=== PATIENT | male | born 1945 | race Caucasian/White ===

== ENCOUNTER 2018-03-25 10:53 | Inpatient (IN) | payer MEDICARE ==
[2018-03-25] MEDS ORDERED: SODIUM CHLORIDE 0.9% 500 ML IV STA (11:09)
[2018-03-25] MEDS ORDERED: ONDANSETRON 4 MG/2 ML VIAL IVP STA (11:09)
[2018-03-25] MEDS ORDERED: MORPHINE SULFATE 4 MG/ML SYRINGE IVP PRN (11:15)
--- NOTE | 2018-03-25 11:19 | ED ---
General Adult HPI - General Chief complaint: Nausea/Vomiting/Diarrhea Stated complaint: Dehydration Source: patient Mode of arrival: wheelchair Limitations: no limitations - History of Present Illness Initial comments: Dictation was produced using [employer] dictation software. please excuse any grammatical, word or spelling errors. Chief Complaint: 72-year-old male past medical history of esophageal cancer, abdominal lymphadenopathy, status post esophageal surgery presents with by mouth intolerance and dehydration. History of Present Illness: Patient reports that he's been getting his usual care at [facility]. Patient has history of esophageal disease. Patient recently had CT performed demonstrating lymphadenopathy. According to family who presents with patient reports that his symptoms are secondary to lymphadenopathy. Patient is unsure with by mouth intake for the last several months. Patient is unable to keep solids and liquids down. He is scheduled to have an EGD performed X week for biopsy of lymphadenopathy. Denies any constitutional symptoms. Patient has had this pain in the past however it has been getting progressively worse. The ROS documented in this emergency department record has been reviewed and confirmed by me. Those systems with pertinent positive or negative responses have been documented in the HPI. All other systems are other negative and/or noncontributory. - Related Data Home Medications Medication Instructions Recorded Confirmed Aspirin EC [Ecotrin] 81 mg PO DAILY 01/10/15 03/25/18 ALPRAZolam [Xanax] 0.25 mg PO HS 03/25/18 03/25/18 Cholecalciferol [Vitamin D3] 1,000 unit PO DAILY 03/25/18 03/25/18 Allergies Allergy/AdvReac Type Severity Reaction Status Date / Time No Known Allergies Allergy Verified 03/25/18 11:48 Review of Systems ROS Statement: Those systems with pertinent positive or pertinent negative responses have been documented in the HPI. ROS Other: All systems not noted in ROS Statement are negative. Past Medical History Past Medical History: Hyperlipidemia, Hypertension Additional Past Medical History / Comment(s): HX OF FX RT HIP-NO SURGERY; RINGING IN EARS. DIFF SWALLOWING FOOD, espoghus cancer History of Any Multi-Drug Resistant Organisms: None Reported Past Surgical History: Heart Catheterization With Stent Additional Past Surgical History / Comment(s): COLONOSCOPY, LAST 01/13/15. Past Anesthesia/Blood Transfusion Reactions: No Reported Reaction Date of Last Stent Placement:: 2000 Past Psychological History: No Psychological Hx Reported Smoking Status: Former smoker Past Alcohol Use History: Occasional Past Drug Use History: None Reported - Past Family History Mother Family Medical History: Cancer Additional Family Medical History / Comment(s): COLON General Exam - General Exam Comments Initial Comments: PHYSICAL EXAM: General Impression: Alert and oriented x3, acute distress secondary to pain HEENT: Normocephalic atraumatic, extra-ocular movements intact, pupils equal and reactive to light bilaterally, mucous membranes moist. Cardiovascular: Heart regular rate and rhythm, S1&S2 audible, no murmurs, rubs or gallops Chest: Lungs clear to auscultation bilaterally, no rhonchi, no wheeze, no rales Abdomen: Bowel sounds present, abdomen soft, non-tender, non-distended, no organomegaly, midline abdominal scar Musculoskeletal: Pulses present and equal in all extremities, no peripheral edema Motor: Moves all extremity is grossly Neurological: CN II-XII grossly intact, no focal motor or sensory deficits noted Skin: Intact with no visualized rashes Psych: Normal affect and mood Limitations: no limitations Course Vital Signs 03/25/18 03/25/18 03/25/18 11:04 12:15 12:19 Temperature 97.6 F Pulse Rate 86 61 78 Respiratory 18 24 18 Rate Blood Pressure 136/66 117/61 121/74 O2 Sat by Pulse 100 100 100 Oximetry Medical Decision Making - Medical Decision Making ED course: 72-year-old male with past medical history of esophageal cancer, status post esophageal surgery presents with poor by mouth intake. Signs upon arrival are within acceptable limits. Patient has complex history of esophageal disease. He had recent computed tomography scan performed at [facility] demonstrating lymphadenopathy of the abdomen. Patient receives his care normally at [facility]. Presents today accompanied by family requesting pain control and IV fluids. Physical examination shows male in acute distress. Patient clinically dehydrated. Patient given IV analgesics and intravenous fluids. EKG was obtained showing anteroseptal ST segment elevation myocardial infarction. CODE STATUS per HPI. Patient is given heparin, aspirin. Patient disposition to cardiac Manpower Development Specialist Manager. Patient be admitted to hospitalist EKG interpretation: Ventricular rate 79. Senna's rhythm rhythm. KS interval 146, QRS 88, QTc 435. Elevated ST segments in anterior precordial leads with his typical depressions in inferior leads. EKG consistent with ST [facility] - Lab Data Result diagrams: 03/25/18 11:20 03/25/18 11:20 Lab Results 03/25/18 03/25/18 Range/Units 11:20 11:20 WBC 5.4 (3.8-10.6) k/uL RBC 4.60 (4.30-5.90) m/uL Hgb 14.7 (13.0-17.5) gm/dL Hct 43.6 (39.0-53.0) % MCV 94.7 (80.0-100.0) fL MCH 31.9 (25.0-35.0) pg MCHC 33.7 (31.0-37.0) g/dL RDW 13.1 (11.5-15.5) % Plt Count 108 L (150-450) k/uL Neutrophils % 78 % Lymphocytes % 13 % Monocytes % 5 % Eosinophils % 2 % Basophils % 1 % Neutrophils # 4.2 (1.3-7.7) k/uL Lymphocytes # 0.7 L (1.0-4.8) k/uL Monocytes # 0.3 (0-1.0) k/uL Eosinophils # 0.1 (0-0.7) k/uL Basophils # 0.0 (0-0.2) k/uL Sodium 145 (137-145) mmol/L Potassium 4.0 (3.5-5.1) mmol/L Chloride 110 H (98-107) mmol/L Carbon Dioxide 22 (22-30) mmol/L Anion Gap 13 mmol/L BUN 27 H (9-20) mg/dL Creatinine 0.92 (0.66-1.25) mg/dL Est GFR (CKD-EPI)AfAm >90 (>60 ml/min/1.73 sqM) Est GFR (CKD-EPI)NonAf 84 (>60 ml/min/1.73 sqM) Glucose 106 H (74-99) mg/dL Calcium 9.6 (8.4-10.2) mg/dL Total Bilirubin 1.1 (0.2-1.3) mg/dL AST 32 (17-59) U/L ALT 35 (21-72) U/L Alkaline Phosphatase 146 H (38-126) U/L Total Protein 6.7 (6.3-8.2) g/dL Albumin 4.4 (3.5-5.0) g/dL Lipase 17 L (23-300) U/L Disposition Clinical Impression: STEMI (ST elevation myocardial infarction) Disposition: ADMITTED IP TO THIS HOSP Condition: Serious Referrals: Winston Hoffman MD [Primary Care Provider] - 1-2 days Time of Disposition: 12:33
[2018-03-25 11:34] LABS: Basophils % (A) 1 %; Eosinophils # (A) 0.1 k/uL (0-0.7); Eosinophils % (A) 2 %; HCT 43.6 % (39.0-53.0); HGB 14.7 gm/dL (13.0-17.5); Lymphocytes # (A) 0.7 k/uL (1.0-4.8); Lymphocytes % (A) 13 %; MCH 31.9 pg (25.0-35.0); MCHC 33.7 g/dL (31.0-37.0); MCV 94.7 fL (80.0-100.0); Mean Platelet Volume 7.3; Monocytes # (A) 0.3 k/uL (0-1.0); Monocytes % (A) 5 %; Neutrophils # (A) 4.2 k/uL (1.3-7.7); Neutrophils % (A) 78 %; Platelet Count 108 k/uL (150-450); RDW 13.1 % (11.5-15.5); WBC 5.4 k/uL (3.8-10.6)
[2018-03-25 11:44] LABS: ALT 35 U/L (21-72); AST 32 U/L (17-59); Albumin 4.4 g/dL (3.5-5.0); Alkaline Phosphatase 146 U/L (38-126); Anion Gap 13 mmol/L; Blood Urea Nitrogen 27 mg/dL (9-20); Calcium 9.6 mg/dL (8.4-10.2); Carbon Dioxide 22 mmol/L (22-30); Chloride 110 mmol/L (98-107); Glucose 106 mg/dL (74-99); Lipase 17 U/L (23-300); Sodium 145 mmol/L (137-145); Total Bilirubin 1.1 mg/dL (0.2-1.3); Total Protein 6.7 g/dL (6.3-8.2)
[2018-03-25] MEDS ORDERED: HEPARIN SODIUM,PORCINE 5,000 UNIT/ML 1 ML VIAL IV STA (12:00)
[2018-03-25] MEDS ORDERED: ASPIRIN 81 MG PO STA (12:01)
[2018-03-25] MEDS ORDERED: ATORVASTATIN 80 MG TAB PO STA (12:11)
--- NOTE | 2018-03-25 12:32 | P.CRDCN ---
History of Present Illness Consult date: 03/25/18 Reason for Consult (text): Anterior STEMI Chief complaint: Chest pain History of present illness: This is a pleasant 72-year-old gentleman with history of hypertension , hyperlipidemia, prior nicotine dependence for which she states he quit smoking approximately 30 years ago, patient also states that he has had prior cardiac stenting over 20 years ago. Patient has esophageal cancer for which he underwent chemo and radiation and subsequent removal of his esophagus. According to the patient, in this regard he's been doing fairly well until recently he was noted to have an abdominal mass for which she is going to [facility] and undergoing a biopsy this Tuesday. Patient has been losing a significant amount of weight recently as well. He presents to the hospital on this occasion with symptoms of mid epigastric and midsternal chest pressure and heaviness which she initially thought were symptoms from this new mass they found. Patient states that he's been having discomfort for the past couple of days. This morning the pain was quite severe, patient was quite short of breath and diaphoretic and for this reason came to the emergency room for further evaluation. EKG on arrival here showed a normal sinus rhythm with anterior ST elevation in leads V1 to V4, reciprocal changes of ST depression noted in the inferior leads. Blood pressure 130/60 with a heart rate in the 80s , 100% on room air, temperature 97.6. At the time of my examination patient continued to have discomfort which he rated at a 5 or 6 on a scale of 1-10. He has been given an aspirin as well as Lipitor. Chest x-ray was performed results of which are yet pending. White blood cell count 5.4, hemoglobin 14.7, platelet count 108. Sodium 145, potassium 4.0, BUN 27, creatinine 0.9. No troponins have been yet performed. Patient was seen by Dr. Casper in the emergency room and advised to go emergently to the cardiac catheterization lab, the risks and the benefits were explained to both him and his and daughters who are at bedside. Further recommendations will be based on the findings and the patient's clinical course. Past Medical History Past Medical History: Hyperlipidemia, Hypertension Additional Past Medical History / Comment(s): HX OF FX RT HIP-NO SURGERY; RINGING IN EARS. DIFF SWALLOWING FOOD, espoghus cancer History of Any Multi-Drug Resistant Organisms: None Reported Past Surgical History: Heart Catheterization With Stent Additional Past Surgical History / Comment(s): COLONOSCOPY, LAST 01/13/15. Past Anesthesia/Blood Transfusion Reactions: No Reported Reaction Date of Last Stent Placement:: 2000 Past Psychological History: No Psychological Hx Reported Smoking Status: Former smoker Past Alcohol Use History: Occasional Past Drug Use History: None Reported - Past Family History Mother Family Medical History: Cancer Additional Family Medical History / Comment(s): COLON Medications and Allergies Home Medications Medication Instructions Recorded Confirmed Type Aspirin EC [Ecotrin] 81 mg PO DAILY 01/10/15 03/25/18 History ALPRAZolam [Xanax] 0.25 mg PO HS 03/25/18 03/25/18 History Cholecalciferol [Vitamin D3] 1,000 unit PO DAILY 03/25/18 03/25/18 History Allergies Allergy/AdvReac Type Severity Reaction Status Date / Time No Known Allergies Allergy Verified 03/25/18 11:48 Physical Exam Vitals: Vital Signs Temp Pulse Resp BP Pulse Ox 03/25/18 12:19 78 18 121/74 100 03/25/18 12:15 61 24 117/61 100 03/25/18 11:04 97.6 F 86 18 136/66 100 Intake and Output 03/24/18 03/25/18 03/25/18 22:59 06:59 14:59 Other: Weight 67.585 kg PHYSICAL EXAMINATION: GENERAL: Thin, somewhat emaciated 72-year-old gentleman HEENT: Head is atraumatic, normocephalic. Pupils equal, round. Sclera anicteric. Conjunctiva are clear. Mucous membranes of the mouth are moist. Neck is supple. There is no elevated jugular venous pressure.] bruit is heard. HEART EXAMINATION: Heart S1, S2 normal. No murmur or gallop heard. CHEST EXAMINATION: Lungs are clear to auscultation and precussion. No chest wall tenderness is noted on palpation or with deep breathing. ABDOMEN: Soft, nontender. Bowel sounds are heard. No organomegaly noted. EXTREMITIES: 2+ peripheral pulses with no evidence of peripheral edema and no calf tenderness noted. NEUROLOGIC patient is awake, alert and oriented ?-3. . Results 03/25/18 11:20 03/25/18 11:20 Cardiac Enzymes 03/25/18 Range/Units 11:20 AST 32 (17-59) U/L CBC 03/25/18 Range/Units 11:20 WBC 5.4 (3.8-10.6) k/uL RBC 4.60 (4.30-5.90) m/uL Hgb 14.7 (13.0-17.5) gm/dL Hct 43.6 (39.0-53.0) % Plt Count 108 L (150-450) k/uL Comprehensive Metabolic Panel 03/25/18 Range/Units 11:20 Sodium 145 (137-145) mmol/L Potassium 4.0 (3.5-5.1) mmol/L Chloride 110 H (98-107) mmol/L Carbon Dioxide 22 (22-30) mmol/L BUN 27 H (9-20) mg/dL Creatinine 0.92 (0.66-1.25) mg/dL Glucose 106 H (74-99) mg/dL Calcium 9.6 (8.4-10.2) mg/dL AST 32 (17-59) U/L ALT 35 (21-72) U/L Alkaline Phosphatase 146 H (38-126) U/L Total Protein 6.7 (6.3-8.2) g/dL Albumin 4.4 (3.5-5.0) g/dL Current Medications Generic Name Dose Route Start Last Admin Trade Name Freq PRN Reason Stop Dose Admin Morphine Sulfate 4 mg 03/25/18 11:15 03/25/18 11:26 Morphine Sulfate (Inj) IVP 4 mg ONCE PRN Administration Pain Intake and Output 03/24/18 03/25/18 03/25/18 22:59 06:59 14:59 Other: Weight 67.585 kg Patient Weight 03/26/18 06:59 Weight 67.585 kg 03/25/18 11:20 03/25/18 11:20 EKG Interpretations (text) EKG shows normal sinus rhythm with ST elevation noted in the anterior leads and reciprocal changes of ST depression in the inferior leads. Assessment and Plan Plan: Assessment and plan #[address] elevation myocardial infarction #2 history of coronary artery disease with prior stent placement over 20 years ago #3 hypertension #4 hyperlipidemia #5 prior history of smoking, patient quit smoking approximately 30 years ago #6 history of esophageal cancer for which patient underwent chemo and radiation and subsequent surgery for removal of his esophagus #7 recent lymphadenopathy for which patient scheduled to undergo outpatient biopsy at [facility] on Tuesday Plan Patient was given aspirin and Lipitor, IV heparin bolus, advised to undergo emergently to the cardiac catheterization lab. The risks and the benefits explained to both him and his family in detail, this will be performed by Dr. Casper. Further recommendations will be based on these findings and the patient 's clinical course. DNP note has been reviewed, I agree with a documented findings and plan of care. Patient was seen and examined.
--- NOTE | 2018-03-25 12:41 | XR ---
EXAMINATION TYPE: XR chest 1V portable DATE OF EXAM: 03/25/2018 HISTORY: stemi. REFERENCE: Previous study dated 04/08/2013. FINDINGS: Lung volumes are prominent. The lungs are clear. Pleural spaces are clear. The heart is not enlarged. IMPRESSION: PLEASE CORRELATE FOR COPD.
[2018-03-25] MEDS ORDERED: fentaNYL (PF) 50 MCG/ML 2 ML AMP ONE (12:46)
[2018-03-25] MEDS ORDERED: LIDOCAINE 2% INJ 20 MG/ML SQ ONE ×2 (12:51)
[2018-03-25] MEDS ORDERED: fentaNYL (PF) 50 MCG/ML 2 ML AMP IVP ONE ×2 (12:51)
[2018-03-25] MEDS ORDERED: SODIUM CHLORIDE 0.9% 1,000 ML IV ONE ×2 (12:53)
[2018-03-25] MEDS ORDERED: BIVALIRUDIN BOLUS 250 MG/50 ML IV ONE ×2 (12:58)
[2018-03-25] MEDS ORDERED: BIVALIRUDIN 250 MG in SODIUM CHLORIDE 0.9% 50 ML IV ONE ×4 (12:59)
[2018-03-25] MEDS ORDERED: PRASUGREL 10 MG TAB ONE (13:00)
[2018-03-25] MEDS ORDERED: PRASUGREL 10 MG TAB PO ONE ×2 (13:03)
[2018-03-25] MEDS ORDERED: IOPAMIDOL-370 125ML BTL INJ ONE (13:09)
[2018-03-25 13:15] LABS: Creatine Kinase MB 4.3 ng/mL (0.0-2.4); Troponin I 0.445 ng/mL (0.000-0.034)
[2018-03-25] MEDS ORDERED: IOPAMIDOL-370 100ML BTL INJ ONE (13:17)
[2018-03-25] MEDS ORDERED: ATROPINE SULFATE 0.1 MG/ML 10ML SYRINGE IV PRN (13:34)
[2018-03-25] MEDS ORDERED: RX INFO: IV CONTRAST WAS GIVEN 1 EACH MISC MISCELLANE PRN (13:34)
[2018-03-25] MEDS ORDERED: MAG HYDROX/AL HYDROX/SIMETH 30 ML CUP PO PRN (13:34)
[2018-03-25] MEDS ORDERED: ZOLPIDEM 5 MG TAB PO PRN (13:34)
[2018-03-25] MEDS ORDERED: NITROGLYCERIN SL TABS 0.4 MG TAB SUBLINGUAL PRN (13:34)
[2018-03-25] MEDS ORDERED: SODIUM CHLORIDE 0.9% 1,000 ML IV SCH (13:45)
--- NOTE | 2018-03-25 13:51 | CC ---
CARDIAC CATHETERIZATION REPORT Mr. 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 He was being evaluated at [facility] who presented to the emergency room with nausea and vomiting and chest discomfort. His EKG was consistent with an acute ST-segment elevation myocardial infarction in the anterior leads. In view of that, recommendation made regarding cardiac catheterization. The procedures, risks and complications were discussed with the patient who is in full understanding and agreement. PROCEDURE: Patient was brought to labor relations specialist after receiving fentanyl and Benadryl and achieving moderate conscious sedated state. Using Xylocaine anesthesia in the Seldinger technique, a 6-Peruvian sheath was introduced in the right femoral artery. Selective right and left angiography were performed using 6-Peruvian FR4 guiding catheter and after performing angioplasty and stenting of the LAD images of the right coronary was performed using 6-Peruvian right Raj catheter. Following that, a 6-Peruvian tight pigtail catheter was left ventricle and a 30 degree REID view of the left ventricle was obtained. Following the catheter and sheaths were removed. Hemostasis was obtained with deployment of an Angio-Seal. There was no immediate complication. Patient is returned to his room in stable condition. FINDINGS: Left Main: This is a short size vessel bifurcating left circumflex, left anterior descending artery. Left main coronary artery has no evidence of high-grade stenosis. Left Anterior Descending Artery: This is a large-sized vessel reaching toward the apex with a wraparound apex segment giving rise to a diagonal branch in mid segment the left anterior descending artery at the takeoff has a 99% stenosis. The rest of the vessel has mild intimal disease of 10% to 20% without any evidence of high-grade stenosis. Left Circumflex: This is a dominant vessel large in caliber giving rise to 2 obtuse marginal branches. The first one is large in caliber distally bifurcating into PDA and posterolateral segment and branches. The left circumflex stented segment proximally is patent, has mild intimal disease of 20% to 30%. There is mild intimal disease throughout the course of the vessel without any evidence of high-grade stenosis. Right Coronary Artery: This is a small nondominant vessel that has no evidence of high- grade stenosis. LEFT VENTRICULOGRAM: Left ventriculogram is performed in 30-degree REID view and revealed anteroapical severe hypokinesis to akinesis. Estimated ejection fraction 35%. There was no significant. HEMODYNAMICS: There was no gradient across the aortic valve. The left ventricle end-diastolic pressure was 16-20 mmHg. CONCLUSION: 1. Critical stenosis involving the ostium of the left anterior descending artery. 2. Mild disease in the left circumflex artery and the right coronary artery. 3. Severely impaired left ventricular systolic function. RECOMMENDATION: In view of finding anatomy, I recommend proceeding with angioplasty and stenting of the LAD. The procedure, risks and complications were discussed with the patient who is in full understanding and agreement. MMCONORL / IJN: [id number] /
--- NOTE | 2018-03-25 13:54 | PTCA ---
PERCUTANEOUSTRANS CORORONARY ANGIOGRAPHY Mr. Malrow is a 72-year-old male who presented with an acute ST-segment elevation myocardial infarction, underwent coronary angiography and was found to have critical stenosis involving the ostial of the LAD. In view of that, recommendation was made regarding angioplasty and stenting. The procedures, risks and complications were discussed with the patient who is in full understanding and agreement. PROCEDURE: Using the 6-Hungarian FL4 guiding catheter a 0.014 balanced medium weight J-wire was advanced across and positioned distal left circumflex. Following that, another 0.014 advanced medium weight J-wire was advanced and positioned distal LAD. Following that, a 2.5 x 12 mm Trek balloon was advanced and one inflation at 8 atmospheres was done. Following that the balloon was removed and a 3.5 x 12 mm Xience Alpine stent was deployed and post dilated at 16 atmospheres. After the last inflation, after appropriate wait the balloon and the guidewire were withdrawn back in the guiding catheter. Images were obtained and repeated. Those images reveal stable successful stenting. At that point the angiography of the right coronary artery and left ventriculography was performed. Following that, the catheter and sheaths were removed. Hemostasis was obtained with deployment of an Angio-Seal. There was no immediate complication. The patient was returned to his room in stable condition. Of note, the patient had no chest discomfort at the end of the procedure and he had improvement in his ST-segment elevation. He received Angiomax per protocol as well as oral loading dose of Effient. RESULTS: Successful stenting of the ostium of the LAD with reduction of stenosis from 99% to 0%. RECOMMENDATION: The patient will be continued on aspirin, Effient, beta bryan, MELANIE and statin. The importance of dual antiplatelet treatment were discussed with the patient and his family and agreement. DURATION OF PROCEDURE: 30 minutes MMODL / IJN: [id number] /
--- NOTE | 2018-03-25 13:54 | LTR ---
March 25, [address] Winston Hoffman: I had the pleasure of performing coronary angiography and coronary angioplasty on Mr. Marlow at [facility] on March 25 and a full copy of the procedure note will be forwarded to you. In brief, he presented with an acute ST-segment elevation myocardial infarction involving the LAD territory and underwent successful stenting of that vessel. I am hopeful that this procedure will stabilize his status. Thank you again for allowing me to participate in his care. Please feel free to call for any questions. Sincerely, ISELA / CRISTINEN: [id number] /
[2018-03-25 14:32] LABS: Glucose,Whole Blood 89 mg/dL (75-99)
[2018-03-25 16:29] VITALS: BMI 21.4
--- NOTE | 2018-03-25 17:09 | P.HPIM ---
History of Present Illness Patient is a 72-year-old pleasant gentleman came with chest pain found to have ST elevation microinfarction underwent stenting of LAD patient does have history of esophageal cancer appears to have relapse has a mass in the lower esophageal area patient had a splenectomy in the past patient has not been able to tolerate any diet including liquid diet because of which a PEG tube was recommended, surgery will be consulted tomorrow. Patient received stent today patient was started on dual antiplatelet therapy, low-dose MELANIE inhibitor and statin. Patient presently is chest pain-free. Review of Systems REVIEW OF SYSTEMS: CONSTITUTIONAL: No fever, no malaise, no fatigue. HEENT: No recent visual problems or hearing problems. Denied any sore throat. CARDIOVASCULAR: No chest pain, orthopnea, PND, no palpitations, no syncope. PULMONARY: No shortness of breath, no cough, no hemoptysis. GASTROINTESTINAL: No diarrhea, no nausea, no vomiting, no abdominal pain. Normoactive bowel sounds. NEUROLOGICAL: No headaches, no weakness, no numbness. HEMATOLOGICAL: Denies any bleeding or petechiae. GENITOURINARY: Denies any burning micturition, frequency, or urgency. MUSCULOSKELETAL/RHEUMATOLOGICAL: Denies any joint pain, swelling, or any muscle pain. ENDOCRINE: Denies any polyuria or polydipsia. The rest of the 14-point review of systems is negative. Past Medical History Past Medical History: Cancer, Hyperlipidemia, Hypertension Additional Past Medical History / Comment(s): HX OF FX RT HIP-NO SURGERY; RINGING IN EARS. DIFF SWALLOWING FOOD, espoghus cancer History of Any Multi-Drug Resistant Organisms: None Reported Past Surgical History: Heart Catheterization With Stent Additional Past Surgical History / Comment(s): COLONOSCOPY, LAST 01/13/15. esophagectomy, radiation and chemotherapy 2 years ago. Past Anesthesia/Blood Transfusion Reactions: No Reported Reaction Date of Last Stent Placement:: 2000 Past Psychological History: No Psychological Hx Reported Smoking Status: Former smoker Past Alcohol Use History: Occasional Past Drug Use History: None Reported - Past Family History Mother Family Medical History: Cancer Additional Family Medical History / Comment(s): COLON Medications and Allergies Home Medications Medication Instructions Recorded Confirmed Type Aspirin EC [Ecotrin] 81 mg PO DAILY 01/10/15 03/25/18 History ALPRAZolam [Xanax] 0.25 mg PO HS 03/25/18 03/25/18 History Cholecalciferol [Vitamin D3] 1,000 unit PO DAILY 03/25/18 03/25/18 History Allergies Allergy/AdvReac Type Severity Reaction Status Date / Time No Known Allergies Allergy Verified 03/25/18 11:48 Physical Exam Vitals: Vital Signs Temp Pulse Resp BP Pulse Ox 03/25/18 17:00 64 22 116/81 99 03/25/18 16:45 64 27 H 138/81 99 03/25/18 16:30 82 24 119/84 97 03/25/18 16:15 78 17 135/84 98 03/25/18 16:00 77 16 128/78 96 03/25/18 15:45 79 17 133/83 95 03/25/18 15:30 81 19 134/77 97 03/25/18 15:15 83 12 124/83 97 03/25/18 15:00 87 20 139/88 97 03/25/18 14:45 85 25 H 128/86 96 03/25/18 14:38 97.6 F 78 18 121/74 100 03/25/18 14:30 83 16 114/82 97 03/25/18 14:15 80 14 132/74 97 03/25/18 12:19 78 18 121/74 100 03/25/18 12:15 61 24 117/61 100 03/25/18 11:04 97.6 F 86 18 136/66 100 Intake and Output 03/25/18 03/25/18 03/25/18 06:59 14:59 22:59 Intake Total 769 200 Balance 769 200 Intake: IV 269 200 Sodium Chloride 0.9% 1, 200 000 ml @ 100 mls/hr IV . Q10H [facility] Rx#:[id number] Amount of Fluid Infused ( 500 ml) Other: Weight 67.5 kg 67.585 kg PHYSICAL EXAMINATION: GENERAL: The patient is alert and oriented x3, not in any acute distress. Thin built cachectic HEENT: Pupils are round and equally reacting to light. EOMI. No scleral icterus. No conjunctival pallor. Normocephalic, atraumatic. No pharyngeal erythema. No thyromegaly. CARDIOVASCULAR: S1 and S2 present. No murmurs, rubs, or gallops. PULMONARY: Chest is clear to auscultation, no wheezing or crackles. ABDOMEN: Soft, nontender, nondistended, normoactive bowel sounds. No palpable organomegaly. MUSCULOSKELETAL: No joint swelling or deformity. EXTREMITIES: No cyanosis, clubbing, or pedal edema. NEUROLOGICAL: Gross neurological examination did not reveal any focal deficits. SKIN: No rashes. Results CBC & Chem 7: 03/25/18 11:20 03/25/18 11:20 Labs: Abnormal Lab Results - Last 24 Hours (Table) 03/25/18 03/25/18 03/25/18 Range/Units 11:20 11:20 11:20 Plt Count 108 L (150-450) k/uL Lymphocytes # 0.7 L (1.0-4.8) k/uL Chloride 110 H (98-107) mmol/L BUN 27 H (9-20) mg/dL Glucose 106 H (74-99) mg/dL Alkaline Phosphatase 146 H (38-126) U/L CK-MB (CK-2) 4.3 H* (0.0-2.4) ng/mL Troponin I 0.445 H* (0.000-0.034) ng/mL Lipase 17 L (23-300) U/L 03/25/18 Range/Units 14:33 Plt Count (150-450) k/uL Lymphocytes # (1.0-4.8) k/uL Chloride (98-107) mmol/L BUN (9-20) mg/dL Glucose (74-99) mg/dL Alkaline Phosphatase (38-126) U/L CK-MB (CK-2) (0.0-2.4) ng/mL Troponin I 4.280 H* (0.000-0.034) ng/mL Lipase (23-300) U/L Thrombosis Risk Factor Assmnt - Choose All That Apply Any of the Below Risk Factors Present?: Yes Each Factor Represents 1 point: Acute AL Each Risk Factor Represents 2 Points: Age 61-74 years Thrombosis Risk Factor Assessment Total Risk Factor Score: 3 Thrombosis Risk Factor Assessment Level: Moderate Risk Assessment and Plan Plan: ST elevation microinfarction: Patient is status post radical catheterization and stenting patient is an above-mentioned medications -Mild to moderate protein calorie malnutrition with severe cachexia and able to tolerate diet because of the esophageal mass patient may need a PEG tube surgery will be consulted tomorrow -Hyperlipidemia -Hypertension -History of esophageal cancer which appears to have relapsed biopsy as an outpatient in [facility].
[2018-03-25] MEDS: ACETAMINOPHEN TAB 325 MG TAB PO PRN (18:33)
[2018-03-25] MEDS: SPIRONOLACTONE 25 MG TAB PO SCH (18:34)
[2018-03-25] MEDS: METOPROLOL TARTRATE 25 MG TAB PO SCH (20:08)
[2018-03-25] MEDS: LISINOPRIL 2.5 MG TAB PO SCH (20:08)
[2018-03-25] MEDS ORDERED: ALPRAZolam 0.25 MG TAB PO SCH (21:00)
[2018-03-25] MEDS: ALPRAZolam 0.5 MG TAB PO SCH (21:37)
[2018-03-26 04:34] LABS: Anion Gap 4 mmol/L; Blood Urea Nitrogen 24 mg/dL (9-20); Calcium 9.1 mg/dL (8.4-10.2); Carbon Dioxide 24 mmol/L (22-30); Chloride 113 mmol/L (98-107); Cholesterol 129 mg/dL (<200); Glucose 97 mg/dL (74-99); HDL Cholesterol 49 mg/dL (40-60); LDL Cholesterol,Calculated 67 mg/dL (0-99); Magnesium 2.2 mg/dL (1.6-2.3); Phosphorus 3.7 mg/dL (2.5-4.5); Potassium 4.2 mmol/L (3.5-5.1); Sodium 141 mmol/L (137-145); Triglycerides 63 mg/dL (<150)
[2018-03-26 04:39] LABS: Basophils % (A) 0 %; Eosinophils % (A) 0 %; HCT 38.5 % (39.0-53.0); HGB 12.9 gm/dL (13.0-17.5); Lymphocytes # (A) 0.4 k/uL (1.0-4.8); Lymphocytes % (A) 7 %; MCH 31.7 pg (25.0-35.0); MCHC 33.5 g/dL (31.0-37.0); MCV 94.7 fL (80.0-100.0); Mean Platelet Volume 7.8; Monocytes # (A) 0.7 k/uL (0-1.0); Monocytes % (A) 11 %; Neutrophils # (A) 4.9 k/uL (1.3-7.7); Neutrophils % (A) 79 %; RBC 4.06 m/uL (4.30-5.90); RDW 13.3 % (11.5-15.5); WBC 6.1 k/uL (3.8-10.6)
[2018-03-26 05:03] LABS: Platelet Count 87 k/uL (150-450)
[2018-03-26] MEDS: METOPROLOL TARTRATE 25 MG TAB PO SCH ×2 (08:55→19:36)
[2018-03-26] MEDS: LISINOPRIL 2.5 MG TAB PO SCH (08:55)
[2018-03-26] MEDS: PRASUGREL 10 MG TAB PO SCH (08:55)
[2018-03-26] MEDS: ASPIRIN 81 MG PO SCH (08:55)
--- NOTE | 2018-03-26 09:37 | PN ---
PROGRESS NOTE Mr. Marlow is a 72-year-old male who presented with an acute anterior myocardial infarction, underwent cardiac catheterization, was found to have ostial LAD lesion and underwent stenting of that vessel. He is doing well this morning. He is denying any symptoms of chest pain. His breathing has been stable. He denies any dizziness. He is in sinus mechanism with episode of low blood pressure. He continues to be at this time on aspirin once a day, Effient 10 mg daily, Lipitor 80 mg daily, lisinopril 2.5 mg twice a day, metoprolol tartrate 25 mg twice a day and spironolactone 25 mg daily. PHYSICAL EXAMINATION: Blood pressure running in the 90s. Heart rate in the 60s. LUNGS: Clear heart rate rhythm S1, S2. No S3 with systolic murmur. ABDOMEN: Soft nontender. Right groin no hematoma. LAB DATA: With a peak troponin of 29.4, BUN and creatinine 24 and 0.7, hemoglobin of 12.9. EKG revealed sinus mechanism with QRS in V1 to V2 and T-wave inversion of the lateral precordial leads with preserved R-wave in lead V3. IMPRESSION: 1. Status post acute anterior myocardial infarction with stenting of the ostial LAD. 2. Prior stenting of the left circumflex patent. 3. History of esophageal cancer with possible recurrence. 4. Weight loss. RECOMMENDATIONS: At this time, I will cut down the dose of his MELANIE inhibitor. Increase his level of activity. He should be able to transfer to telemetry floor. We will obtain echocardiogram with Doppler tomorrow and depending on results of testing, further recommendations will be made. MMODL / IJN: [id number] /
[2018-03-26] MEDS ORDERED: SODIUM CHLORIDE 0.9% 500 ML IV ONE (13:03)
--- NOTE | 2018-03-26 15:10 | P.PN ---
Subjective Patient had ST elevation myocardial infarction underwent stenting of LAD patient blood pressure is low because of which he didn't receive his metoprolol as lisinopril today. Patient is able to eat regular diet may not require a PEG tube. But anyways as per the patient and family's request I'll consult surgery for further evaluation for PEG tube placement. Constitutional: Denied any fatigue denied any fever. Cardio vascular: denied any chest pain, palpitations Gastrointestinal denied any nausea vomiting Pulmonary: Denied any shortness of breath cough Neurologic denied any new focal deficits Objective - Vital Signs Vital signs: Vital Signs Temp 98.6 F 03/26/18 12:00 Pulse 65 03/26/18 12:00 Resp 17 03/26/18 12:00 BP 104/63 03/26/18 12:00 Pulse Ox 98 03/26/18 12:00 Intake & Output 03/25/18 03/26/18 03/26/18 18:59 06:59 18:59 Intake Total 1269 800 800 Output Total 100 675 300 Balance 1169 125 500 Weight 67.585 kg 60.7 kg Intake: IV 769 800 500 Sodium Chloride 0.9% 1, 500 800 0 000 ml @ 100 mls/hr IV . Q10H [facility] Rx#:[id number] Sodium Chloride 0.9% 500 500 ml @ 999 mls/hr IV .Q31M [facility] Rx#:[id number] Amount of Fluid Infused ( 500 ml) Oral 300 Output: Urine 100 675 300 Other: Voiding Method Urinal Urinal Urinal # Voids 0 0 - Exam PHYSICAL EXAMINATION: GENERAL: The patient is alert and oriented x3, not in any acute distress. Thin built cachectic HEENT: Pupils are round and equally reacting to light. EOMI. No scleral icterus. No conjunctival pallor. Normocephalic, atraumatic. No pharyngeal erythema. No thyromegaly. CARDIOVASCULAR: S1 and S2 present. No murmurs, rubs, or gallops. PULMONARY: Chest is clear to auscultation, no wheezing or crackles. ABDOMEN: Soft, nontender, nondistended, normoactive bowel sounds. No palpable organomegaly. MUSCULOSKELETAL: No joint swelling or deformity. EXTREMITIES: No cyanosis, clubbing, or pedal edema. NEUROLOGICAL: Gross neurological examination did not reveal any focal deficits. SKIN: No rashes. - Labs CBC & Chem 7: 07/22/18 04:00 03/26/18 04:00 Labs: Abnormal Lab Results - Last 24 Hours (Table) 03/25/18 03/25/18 03/26/18 Range/Units 14:33 20:29 04:00 RBC (4.30-5.90) m/uL Hgb (13.0-17.5) gm/dL Hct (39.0-53.0) % Plt Count (150-450) k/uL Lymphocytes # (1.0-4.8) k/uL Chloride (98-107) mmol/L BUN (9-20) mg/dL Troponin I 4.280 H* 23.700 H* 29.400 H* (0.000-0.034) ng/mL 03/26/18 03/26/18 Range/Units 04:00 04:00 RBC 4.06 L (4.30-5.90) m/uL Hgb 12.9 L (13.0-17.5) gm/dL Hct 38.5 L (39.0-53.0) % Plt Count 87 L (150-450) k/uL Lymphocytes # 0.4 L (1.0-4.8) k/uL Chloride 113 H (98-107) mmol/L BUN 24 H (9-20) mg/dL Troponin I (0.000-0.034) ng/mL Assessment and Plan Plan: ST elevation myocardial: Patient is status post cardiac catheterization and stenting of left anterior descending patient is an above-mentioned medications -Mild to moderate protein calorie malnutrition with severe cachexia and able to tolerate diet because of the esophageal mass , surgical consultation although patient is able to tolerate regular diet well at this time. -Hyperlipidemia -Hypertension -History of esophageal cancer which appears to have relapsed biopsy as an outpatient in [facility].
[2018-03-26] MEDS: SPIRONOLACTONE 25 MG TAB PO SCH (16:41)
[2018-03-26] MEDS: ATORVASTATIN 80 MG TAB PO SCH (20:00)
[2018-03-26] MEDS: ALPRAZolam 0.5 MG TAB PO SCH (20:01)
[2018-03-27 04:55] LABS: Basophils % (A) 0 %; Eosinophils # (A) 0.1 k/uL (0-0.7); Eosinophils % (A) 2 %; HCT 38.8 % (39.0-53.0); Lymphocytes # (A) 0.6 k/uL (1.0-4.8); Lymphocytes % (A) 12 %; MCH 31.6 pg (25.0-35.0); MCHC 33.5 g/dL (31.0-37.0); MCV 94.3 fL (80.0-100.0); Mean Platelet Volume 7.9; Monocytes # (A) 0.5 k/uL (0-1.0); Monocytes % (A) 11 %; Neutrophils # (A) 3.6 k/uL (1.3-7.7); Neutrophils % (A) 73 %; RBC 4.12 m/uL (4.30-5.90); RDW 13.1 % (11.5-15.5); WBC 4.9 k/uL (3.8-10.6)
[2018-03-27 05:04] LABS: Anion Gap 2 mmol/L; Blood Urea Nitrogen 23 mg/dL (9-20); Calcium 8.8 mg/dL (8.4-10.2); Carbon Dioxide 27 mmol/L (22-30); Chloride 112 mmol/L (98-107); Glucose 91 mg/dL (74-99); Potassium 3.9 mmol/L (3.5-5.1); Sodium 141 mmol/L (137-145)
[2018-03-27 05:08] LABS: Platelet Count 87 k/uL (150-450)
--- NOTE | 2018-03-27 07:59 | PN ---
PROGRESS NOTE Mr. Marlow is a 72-year-old male with a known history of coronary artery disease, history of esophageal CA, who presented with an acute anterior myocardial infarction, underwent stenting of his ostial LAD. He is feeling well this morning. He is denying any symptoms of chest pain. His breathing has been stable. He denies any dizziness or palpitation. He is in sinus mechanism. His blood pressure is on the low side so could not tolerate the beta bryan. He continues to be on aspirin once a day, Lipitor 80 mg daily, Effient 10 mg daily, Zestril 2.5 mg daily. His metoprolol has not been given and Aldactone 25 mg daily. PHYSICAL EXAMINATION: Blood pressure running in the high 90s with a heart rate in the 60s. LUNGS: Clear. Heart regular rate and rhythm S1, S2. No S3. No rub. ABDOMEN: Soft, nontender. EXTREMITIES: No edema. LAB DATA: Lab data revealed a hemoglobin of 13. BUN and creatinine 23 and 0.77. IMPRESSION: 1. Status post anterior myocardial infarction with stenting of the ostial LAD. 2. Prior stenting of the left circumflex. 3. Ischemic cardiomyopathy. 4. Esophageal CA with possible metastasis with possible relapse. RECOMMENDATIONS: Patient will be transferred to telemetry floor. His level of activity will be increased. We will follow his blood pressure. An echocardiogram with Doppler will be obtained today and depending on his progress, further recommendations will be made. ISELA / CRISTINEN: [id number] /
[2018-03-27] MEDS: LISINOPRIL 2.5 MG TAB PO SCH (08:19)
[2018-03-27] MEDS: METOPROLOL TARTRATE 25 MG TAB PO SCH ×2 (08:20→20:23)
[2018-03-27] MEDS: PRASUGREL 10 MG TAB PO SCH (08:21)
[2018-03-27] MEDS: ASPIRIN 81 MG PO SCH (08:21)
--- NOTE | 2018-03-27 10:21 | ECHOF ---
Referral Reason:mi MEASUREMENTS -------- HEIGHT: 177.8 cm WEIGHT: 60.3 kg BP: 90/68 RVIDd: 3.1 cm (< 3.3) IVSd: 1.1 cm (0.6 - 1.1) LVIDd: 4.8 cm (3.9 - 5.3) LVPWd: 1.2 cm (0.6 - 1.1) IVSs: 1.3 cm LVIDs: 3.5 cm LVPWs: 1.5 cm LA Diam: 2.2 cm (2.7 - 3.8) Ao Diam: 4.2 cm (2.0 - 3.7) AV Cusp: 2.4 cm (1.5 - 2.6) MV EXCURSION: 22.473 mm (> 18.000) MV EF SLOPE: 69 mm/s (70 - 150) EPSS: 0.9 cm MV E Russ: 0.79 m/s MV DecT: 225 ms MV A Russ: 1.04 m/s MV E/A Ratio: 0.77 FINDINGS -------- Sinus rhythm. This was a technically adequate study. The left ventricular size is normal. There is borderline concentric left ventricular hypertrophy. Overall left ventricular systolic function is moderately impaired with, an EF between 35 - 40 %. M id anterior LV wall motion is hypokinetic. Apical anterior LV wall motion is hypokinetic. Apica l septum LV wall motion is hypokinetic. The right ventricle is normal in size. The left atrial size is normal. The right atrium is normal in size. The aortic valve is trileaflet and appears structurally normal. The mitral valve is normal. Mild tricuspid regurgitation present. Right ventricular systolic pressure is normal at < 35 mmHg. There is no pulmonic regurgitation present. The aortic root is dilated measuring 4.2cm. Normal inferior vena cava with normal inspiratory collapse consistent with estimated right atrial pre ssure of 5 mmHg. There is no pericardial effusion. CONCLUSIONS -------- 1. Sinus rhythm. 2. This was a technically adequate study. 3. The left ventricular size is normal. 4. There is borderline concentric left ventricular hypertrophy. 5. Mid anterior LV wall motion is hypokinetic. 6. Apical anterior LV wall motion is hypokinetic. 7. Apical septum LV wall motion is hypokinetic. 8. The right ventricle is normal in size. 9. The left atrial size is normal. 10. The right atrium is normal in size. 11. The aortic valve is trileaflet and appears structurally normal. 12. The mitral valve is normal. 13. Mild tricuspid regurgitation present. 14. Right ventricular systolic pressure is normal at < 35 mmHg. 15. There is no pulmonic regurgitation present. 16. The aortic root is dilated measuring 4.2cm. 17. Normal inferior vena cava with normal inspiratory collapse consistent with estimated right atrial pressure of 5 mmHg. 18. There is no pericardial effusion. EMBEDDED SOFTWARE DEVELOPER: Josee Gaspar RDCS
[2018-03-27] MEDS: SPIRONOLACTONE 25 MG TAB PO SCH (13:28)
[2018-03-27] MEDS ORDERED: BISACODYL 5 MG TABLET.DR PO PRN (14:00)
--- NOTE | 2018-03-27 14:25 | P.PN ---
Subjective Patient had ST elevation myocardial infarction underwent stenting of LAD patient blood pressure is low because of which he didn't receive his metoprolol as lisinopril today. Patient is able to eat regular diet may not require a PEG tube. But anyways as per the patient and family's request I'll consult surgery for further evaluation for PEG tube placement. 03/27/2018 Patient is clinically doing well blood pressure remains low because of which she is unable to receive beta bryan or MELANIE inhibitor or potassium sparing diuretic. Eating more than 50% of his food Constitutional: Denied any fatigue denied any fever. Cardio vascular: denied any chest pain, palpitations Gastrointestinal denied any nausea vomiting Pulmonary: Denied any shortness of breath cough Neurologic denied any new focal deficits Objective - Vital Signs Vital signs: Vital Signs Temp 98.5 F 03/27/18 11:46 Pulse 67 03/27/18 12:00 Resp 20 03/27/18 12:00 BP 101/67 03/27/18 12:00 Pulse Ox 100 03/27/18 11:46 Intake & Output 03/26/18 03/27/18 03/27/18 18:59 06:59 18:59 Intake Total 800 400 Output Total 300 0 200 Balance 500 0 200 Weight 71.6 kg Intake: IV 500 Sodium Chloride 0.9% 1, 0 000 ml @ 100 mls/hr IV . Q10H [facility] Rx#:[id number] Sodium Chloride 0.9% 500 500 ml @ 999 mls/hr IV .Q31M [facility] Rx#:[id number] Oral 300 400 Output: Urine 300 0 200 Other: Voiding Method Urinal Urinal Urinal # Voids 1 0 1 - Exam PHYSICAL EXAMINATION: GENERAL: The patient is alert and oriented x3, not in any acute distress. Thin built cachectic HEENT: Pupils are round and equally reacting to light. EOMI. No scleral icterus. No conjunctival pallor. Normocephalic, atraumatic. No pharyngeal erythema. No thyromegaly. CARDIOVASCULAR: S1 and S2 present. No murmurs, rubs, or gallops. PULMONARY: Chest is clear to auscultation, no wheezing or crackles. ABDOMEN: Soft, nontender, nondistended, normoactive bowel sounds. No palpable organomegaly. MUSCULOSKELETAL: No joint swelling or deformity. EXTREMITIES: No cyanosis, clubbing, or pedal edema. NEUROLOGICAL: Gross neurological examination did not reveal any focal deficits. SKIN: No rashes. - Labs CBC & Chem 7: 03/27/18 04:11 03/27/18 04:11 Labs: Abnormal Lab Results - Last 24 Hours (Table) 03/27/18 03/27/18 Range/Units 04:11 04:11 RBC 4.12 L (4.30-5.90) m/uL Hct 38.8 L (39.0-53.0) % Plt Count 87 L (150-450) k/uL Lymphocytes # 0.6 L (1.0-4.8) k/uL Chloride 112 H (98-107) mmol/L BUN 23 H (9-20) mg/dL Assessment and Plan Plan: ST elevation myocardial: Patient is status post cardiac catheterization and stenting of left anterior descending patient is an above-mentioned medications -Mild to moderate protein calorie malnutrition with severe cachexia and able to tolerate diet because of the esophageal mass , surgical consultation although patient is able to tolerate regular diet well at this time. -Hyperlipidemia -Hypertension -History of esophageal cancer which appears to have relapsed biopsy as an outpatient in [facility].
--- NOTE | 2018-03-27 17:32 | P.GSCN ---
History of Present Illness Consult date: 03/27/18 Reason for Consult: Dysphagia History of present illness: 72-year-old male admitted with complaints of chest pain and dysphagia. Patient has had weight loss. He has a history of previous esophageal cancer and underwent transhiatal esophagectomy. Recently the patient was seen at the [facility] where he had his initial surgery performed. The CAT scan apparently shows a mass at the site of previous malignancy. The patient was scheduled for a procedure this coming Tuesday although he is not sure if it was an endoscopic procedure or radiologic study. In the emergency department the patient was found to have evidence of acute myocardial infarction. He underwent emergency catheterization and stent placement. Following that the patient's dysphagia symptoms and nausea have improved dramatically. He is having no dysphagia currently. Review of Systems The patient denies any acute changes in vision or hearing, no dysuria or hematuria, no headache, no runny nose, no rectal bleeding or melena Past Medical History Past Medical History: Cancer, Hyperlipidemia, Hypertension Additional Past Medical History / Comment(s): HX OF FX RT HIP-NO SURGERY; RINGING IN EARS. DIFF SWALLOWING FOOD, espoghus cancer History of Any Multi-Drug Resistant Organisms: None Reported Past Surgical History: Heart Catheterization With Stent Additional Past Surgical History / Comment(s): COLONOSCOPY, LAST 01/13/15. esophagectomy, radiation and chemotherapy 2 years ago. Past Anesthesia/Blood Transfusion Reactions: No Reported Reaction Date of Last Stent Placement:: 2000 Past Psychological History: No Psychological Hx Reported Smoking Status: Former smoker Past Alcohol Use History: Occasional Past Drug Use History: None Reported - Past Family History Mother Family Medical History: Cancer Additional Family Medical History / Comment(s): COLON Medications and Allergies Home Medications Medication Instructions Recorded Confirmed Type Aspirin EC [Ecotrin] 81 mg PO DAILY 01/10/15 03/25/18 History ALPRAZolam [Xanax] 0.25 mg PO HS 03/25/18 03/25/18 History Cholecalciferol [Vitamin D3] 1,000 unit PO DAILY 03/25/18 03/25/18 History Allergies Allergy/AdvReac Type Severity Reaction Status Date / Time No Known Allergies Allergy Verified 03/25/18 11:48 Surgical - Exam Vital Signs Temp Pulse Resp BP Pulse Ox 97.6 F 86 18 136/66 100 03/25/18 11:04 03/25/18 11:04 03/25/18 11:04 03/25/18 11:04 03/25/18 11:04 Physical exam: General: Thin-appearing elderly male in no distress HEENT: Normocephalic, sclerae nonicteric Abdomen: Nontender, nondistended Extremities: No edema Neuro: Alert and oriented Results - Labs 03/27/18 04:11 03/27/18 04:11 Abnormal Lab Results - Last 24 Hours (Table) 03/27/18 03/27/18 Range/Units 04:11 04:11 RBC 4.12 L (4.30-5.90) m/uL Hct 38.8 L (39.0-53.0) % Plt Count 87 L (150-450) k/uL Lymphocytes # 0.6 L (1.0-4.8) k/uL Chloride 112 H (98-107) mmol/L BUN 23 H (9-20) mg/dL Diabetes panel 03/27/18 Range/Units 04:11 Sodium 141 (137-145) mmol/L Potassium 3.9 (3.5-5.1) mmol/L Chloride 112 H (98-107) mmol/L Carbon Dioxide 27 (22-30) mmol/L BUN 23 H (9-20) mg/dL Creatinine 0.77 (0.66-1.25) mg/dL Glucose 91 (74-99) mg/dL Calcium 8.8 (8.4-10.2) mg/dL Calcium panel 03/27/18 Range/Units 04:11 Calcium 8.8 (8.4-10.2) mg/dL Pituitary panel 03/27/18 Range/Units 04:11 Sodium 141 (137-145) mmol/L Potassium 3.9 (3.5-5.1) mmol/L Chloride 112 H (98-107) mmol/L Carbon Dioxide 27 (22-30) mmol/L BUN 23 H (9-20) mg/dL Creatinine 0.77 (0.66-1.25) mg/dL Glucose 91 (74-99) mg/dL Calcium 8.8 (8.4-10.2) mg/dL Adrenal panel 03/27/18 Range/Units 04:11 Sodium 141 (137-145) mmol/L Potassium 3.9 (3.5-5.1) mmol/L Chloride 112 H (98-107) mmol/L Carbon Dioxide 27 (22-30) mmol/L BUN 23 H (9-20) mg/dL Creatinine 0.77 (0.66-1.25) mg/dL Glucose 91 (74-99) mg/dL Calcium 8.8 (8.4-10.2) mg/dL Assessment and Plan (1) Dysphagia Narrative/Plan: Options of further workup of the patient's dysphagia at this time versus outpatient evaluation at [facility] was reviewed with the patient and his family. He would like to hold off on any further workup here locally at this time which is not unreasonable given his improvement. Advise follow-up at of in the next 2-3 weeks following discharge. Current Visit: Yes Status: Acute Code(s): R13.10 - DYSPHAGIA, UNSPECIFIED SNOMED Code(s): 12416334
[2018-03-27] MEDS: ACETAMINOPHEN TAB 325 MG TAB PO PRN (20:20)
[2018-03-27] MEDS: ATORVASTATIN 80 MG TAB PO SCH (20:22)
[2018-03-27] MEDS: ALPRAZolam 0.5 MG TAB PO SCH (20:22)
[2018-03-28 04:55] LABS: Anion Gap 7 mmol/L; Blood Urea Nitrogen 23 mg/dL (9-20); Calcium 8.9 mg/dL (8.4-10.2); Carbon Dioxide 22 mmol/L (22-30); Chloride 112 mmol/L (98-107); Glucose 88 mg/dL (74-99); Potassium 3.8 mmol/L (3.5-5.1); Sodium 141 mmol/L (137-145)
[2018-03-28 07:08] VITALS: BP 105/70
[2018-03-28] MEDS: METOPROLOL TARTRATE 25 MG TAB PO SCH (07:08)
--- NOTE | 2018-03-28 08:14 | PN ---
PROGRESS NOTE Mr. Marlow is a 72-year-old male who presented with an acute anterior myocardial infarction underwent stenting of his ostial LAD. He is doing well this morning, denying any chest pain. He denies any dizziness or palpitation. His breathing is stable. He denies any nausea. He has been ambulating without difficulty. He continues to be on aspirin once a day, Effient 10 mg daily, Lipitor 80 mg daily, Aldactone 25 mg daily, metoprolol tartrate 25 mg twice a day that was held yesterday and lisinopril 2.5 mg daily. PHYSICAL EXAMINATION: Blood pressure 107/70 with the heart rate in the 60s. LUNGS: Clear. HEART: Regular rate and rhythm/ S1, S2. No S3. No rub. ABDOMEN: Soft, nontender. EXTREMITIES: No edema. LAB DATA: His echocardiogram revealed an ejection fraction of 35% to 40% with segmental wall motion abnormality. His BUN and creatinine 23 and 0.7. Potassium 3.8. IMPRESSION: 1. Status post anterior wall myocardial infarction with stenting of the ostial of left anterior descending artery. 2. Patent stent to the left circumflex. 3. Ischemic cardiomyopathy. 4. Esophageal cancer with possible relapse. RECOMMENDATION: Patient will be discharged home today and followed in 1 week and depending on his progress, further recommendation will be made. MMODL / IJN: [id number] /
[2018-03-28 09:06] VITALS: RESP 18
[2018-03-28 09:25] VITALS: TEMP 98.7
[2018-03-28] MEDS: SPIRONOLACTONE 25 MG TAB PO SCH (09:36)
[2018-03-28] MEDS: ACETAMINOPHEN TAB 325 MG TAB PO PRN (09:36)
[2018-03-28] MEDS: ASPIRIN 81 MG PO SCH (09:47)
[2018-03-28] MEDS: LISINOPRIL 2.5 MG TAB PO SCH (09:47)
[2018-03-28] MEDS: PRASUGREL 10 MG TAB PO SCH (09:47)
[2018-03-28] MEDS ORDERED: POTASSIUM CHLORIDE ER 20 MEQ TAB.ER PO STA (10:32)
--- NOTE | 2018-03-28 12:52 | P.DS ---
Providers Date of admission: 03/25/18 12:22 Expected date of discharge: 03/28/18 Attending physician: Yoni Rangel Consults: 03/25/18 13:34 Consult Physician Routine Consulting Provider: [facility] Consult Reason/Comments: Post Interventional patient Do you want consulting provider notified?: Already Contacted 03/26/18 15:28 Consult Physician Routine Consulting Provider: Yanick Le Reason/Comments: feeding tube Do you want consulting provider notified?: Yes, Notify in am Primary care physician: Winston Hoffman Final Diagnoses: ST elevation myocardial: Patient is status post cardiac catheterization and stenting of left anterior descending -Mild to moderate protein calorie malnutrition with severe cachexia and able to tolerate diet because of the esophageal mass , patient is able to tolerate regular diet well at this time. -Hyperlipidemia -Hypertension -History of esophageal cancer which appears to have relapsed biopsy as an outpatient in [facility]. Hospital course:Patient had ST elevation myocardial infarction underwent stenting of LAD. Significant clinical improvement. Evaluated by Dr. Le, surgery regarding further workup of patient's dysphasia, family wishes to follow with surgeon ,Dr. Brent Yanes at [facility] in 2-3 weeks. Cleared by both cardiology and surgery for discharge. Patient is being discharged home in a stable condition with guarded prognosis. Exam GENERAL: The patient is alert and oriented x3, not in any acute distress. CARDIOVASCULAR: S1 and S2 present. No murmurs, rubs, or gallops. PULMONARY: Chest is clear to auscultation, no wheezing or crackles. ABDOMEN: Soft, nontender, nondistended, normoactive bowel sounds. No palpable organomegaly. NEUROLOGICAL: Gross neurological examination did not reveal any focal deficits. The impression and plan of care has been dictated as directed. : I performed a history and examination of this patient, discussed the same with the dictator. I agree with the dictator's note ,documented as a scribe. Any additional findings or plans will be noted. Time taken: 35 minutes Patient Condition at Discharge: Serious Plan - Discharge Summary New Discharge Prescriptions: New Atorvastatin [Lipitor] 80 mg PO HS #90 tab Lisinopril [Zestril] 2.5 mg PO DAILY #90 tab Metoprolol Tartrate [Lopressor] 25 mg PO BID #180 tab Nitroglycerin Sl Tabs [Nitrostat] 0.4 mg SUBLINGUAL Q5M PRN #25 tab PRN Reason: Chest Pain Prasugrel [Effient] 10 mg PO DAILY #90 tab Spironolactone [Aldactone] 25 mg PO DAILY #90 tab Continue Aspirin EC [Ecotrin Low Dose] 81 mg PO DAILY Cholecalciferol [Vitamin D3] 1,000 unit PO DAILY ALPRAZolam [Xanax] 0.25 mg PO HS Discharge Medication List Aspirin EC [Ecotrin Low Dose] 81 mg PO DAILY 01/10/15 [History] ALPRAZolam [Xanax] 0.25 mg PO HS 03/25/18 [History] Cholecalciferol [Vitamin D3] 1,000 unit PO DAILY 03/25/18 [History] Atorvastatin [Lipitor] 80 mg PO HS #90 tab 03/28/18 [Rx] Lisinopril [Zestril] 2.5 mg PO DAILY #90 tab 03/28/18 [Rx] Metoprolol Tartrate [Lopressor] 25 mg PO BID #180 tab 03/28/18 [Rx] Nitroglycerin Sl Tabs [Nitrostat] 0.4 mg SUBLINGUAL Q5M PRN #25 tab 03/28/18 [Rx ] Prasugrel [Effient] 10 mg PO DAILY #90 tab 03/28/18 [Rx] Spironolactone [Aldactone] 25 mg PO DAILY #90 tab 03/28/18 [Rx] Follow up Appointment(s)/Referral(s): [facility] Dr.Surgeon re: Dysphagia [Other] - 3 Weeks Saima Casper MD [STAFF PHYSICIAN] - 04/05/18 3:30 pm Winston Hoffman MD [Primary Care Provider] - 3 Days (Primary Care Practice will call to make appointment.) Ambulatory/Diagnostic Orders: Complete Blood Count w/diff [LAB.AMB] Time Frame: 3 Days, Location: None Selected Patient Instructions/Handouts: Myocardial Infarction (DC), Left Heart Catheterization (DC) Activity/Diet/Wound Care/Special Instructions: Follow your normal diet with addition of low fat low sodium
[2018-03-28 12:56] VITALS: PULSE 68
== END 2018-03-28 13:18 | disposition home or self-care (01) | DRG 247 ==
LOC: EC 10:53 → 6ICU 12:22
PROVIDERS: ADMIT Internal Medicine; ATTEND Internal Medicine
PROC: 4A023N7 Measurement of Cardiac Sampling and Pressure, Left Heart, Percutaneous Approach (ICD-10-PCS; principal; 2018-03-25 12:36)
PROC: 027034Z Dilation of Coronary Artery, One Artery with Drug-eluting Intraluminal Device, Percutaneous Approach (ICD-10-PCS; principal; 2018-03-25 12:36)
PROC: B2151ZZ Fluoroscopy of Left Heart using Low Osmolar Contrast (ICD-10-PCS; principal; 2018-03-25 12:36)
PROC: B2111ZZ Fluoroscopy of Multiple Coronary Arteries using Low Osmolar Contrast (ICD-10-PCS; principal; 2018-03-25 12:36)
DX: I21.09 ST elevation (STEMI) myocardial infarction involving other coronary artery of anterior wall (principal); C15.9 Malignant neoplasm of esophagus, unspecified; E44.0 Moderate protein-calorie malnutrition; R64 Cachexia; E78.5 Hyperlipidemia, unspecified; E86.0 Dehydration; I10 Essential (primary) hypertension; I25.10 Atherosclerotic heart disease of native coronary artery without angina pectoris; I25.5 Ischemic cardiomyopathy; R13.10 Dysphagia, unspecified; R47.02 Dysphasia; Z79.82 Long term (current) use of aspirin; Z79.899 Other long term (current) drug therapy; Z87.891 Personal history of nicotine dependence; Z90.81 Acquired absence of spleen; Z92.21 Personal history of antineoplastic chemotherapy; Z68.22 Body mass index [BMI] 22.0-22.9, adult
CPT/HCPCS: 36415; 71045; 80048; 80053; 80061; 82553; 83690; 83735; 84100; 84484; 85025; 93005; 93306; 93458; 96361; 96365; 96366; 96372; 96375; 96376; 99285

== ENCOUNTER 2018-04-02 12:43 | Emergency (ER) | payer MEDICARE ==
[2018-04-02 12:54] VITALS: TEMP 97.6
[2018-04-02] MEDS ORDERED: MORPHINE SULFATE 2 MG/ML SYRINGE IVP STA (13:17)
[2018-04-02] MEDS ORDERED: SODIUM CHLORIDE 0.9% 500 ML IV STA (13:17)
[2018-04-02] MEDS ORDERED: SODIUM CHLORIDE 0.9% 1,000 ML IV STA (13:17)
[2018-04-02] MEDS ORDERED: ONDANSETRON 4 MG/2 ML VIAL IVP STA (13:24)
--- NOTE | 2018-04-02 13:30 | ED ---
General Adult HPI - General Chief complaint: Weakness Stated complaint: vomiting Time Seen by Provider: 04/02/18 12:55 Source: patient, RN notes reviewed Mode of arrival: wheelchair Limitations: no limitations - History of Present Illness Initial comments: 72-year-old male presents with generalized weakness. Patient had recent hospital admission with ST segment elevation UT and stenting of the LAD. He was discharged several days ago. He has had progressive weakness since this time. He is also had nausea and vomiting and has been unable to keep any substantial food or water down. He has been taking his medications as prescribed and patient states that these have stayed down. Patient also has history of esophageal cancer status post resection. This was approximately 2 years ago. He is scheduled for repeat evaluation at [facility]. Patient was evaluated for feeding tube given his esophageal cancer and difficulty eating as well as vomiting. It was felt that this would be best accomplished at [facility]. Patient has had significant weight loss in the past several months as well according to his family. - Related Data Home Medications Medication Instructions Recorded Confirmed Aspirin EC [Ecotrin Low Dose] 81 mg PO DAILY 01/10/15 04/02/18 ALPRAZolam [Xanax] 0.25 mg PO HS 03/25/18 04/02/18 Cholecalciferol [Vitamin D3] 1,000 unit PO DAILY 03/25/18 04/02/18 Lactulose 10 gm PO DAILY PRN 04/02/18 04/02/18 Previous Rx's Medication Instructions Recorded Atorvastatin [Lipitor] 80 mg PO HS #90 tab 03/28/18 Lisinopril [Zestril] 2.5 mg PO DAILY #90 tab 03/28/18 Metoprolol Tartrate [Lopressor] 25 mg PO BID #180 tab 03/28/18 Nitroglycerin Sl Tabs [Nitrostat] 0.4 mg SUBLINGUAL Q5M PRN #25 tab 03/28/18 Prasugrel [Effient] 10 mg PO DAILY #90 tab 03/28/18 Spironolactone [Aldactone] 25 mg PO DAILY #90 tab 03/28/18 HYDROcodone/APAP 5-325MG [Ona 1 tab PO Q6HR PRN #12 tab 04/02/18 5-325] Ondansetron Odt [Zofran Odt] 4 mg PO Q8HR PRN #10 tab 04/02/18 Pantoprazole Sodium [Protonix] 40 mg PO DAILY #30 tablet. 04/02/18 Allergies Allergy/AdvReac Type Severity Reaction Status Date / Time No Known Allergies Allergy Verified 04/02/18 13:40 Review of Systems ROS Statement: Those systems with pertinent positive or pertinent negative responses have been documented in the HPI. ROS Other: All systems not noted in ROS Statement are negative. Past Medical History Past Medical History: Cancer, Hyperlipidemia, Hypertension, Myocardial Infarction (UT) Additional Past Medical History / Comment(s): HX OF FX RT HIP-NO SURGERY; RINGING IN EARS. DIFF SWALLOWING FOOD, espoghus cancer History of Any Multi-Drug Resistant Organisms: None Reported Past Surgical History: Heart Catheterization With Stent Additional Past Surgical History / Comment(s): COLONOSCOPY, LAST 01/13/15. esophagectomy, radiation and chemotherapy 2 years ago. Past Anesthesia/Blood Transfusion Reactions: No Reported Reaction Date of Last Stent Placement:: 2000 Past Psychological History: No Psychological Hx Reported Smoking Status: Former smoker Past Alcohol Use History: Occasional Past Drug Use History: None Reported - Past Family History Mother Family Medical History: Cancer Additional Family Medical History / Comment(s): COLON General Exam Limitations: no limitations General appearance: lethargic, cachectic Head exam: Present: atraumatic, normocephalic Eye exam: Present: normal appearance, PERRL, EOMI ENT exam: Present: mucous membranes dry Neck exam: Present: normal inspection. Absent: tenderness, meningismus Respiratory exam: Present: normal lung sounds bilaterally. Absent: respiratory distress, wheezes, rales Cardiovascular Exam: Present: regular rate, normal rhythm GI/Abdominal exam: Present: soft. Absent: distended, tenderness Extremities exam: Present: normal inspection, normal capillary refill. Absent: pedal edema Neurological exam: Present: alert, oriented X3, CN II-XII intact. Absent: motor sensory deficit Psychiatric exam: Present: normal affect, normal mood Skin exam: Present: warm, dry, intact. Absent: cyanosis, diaphoretic Course Vital Signs 04/02/18 04/02/18 12:49 14:00 Temperature 97.6 F Pulse Rate 60 54 L Respiratory 18 16 Rate Blood Pressure 94/65 107/58 O2 Sat by Pulse 99 99 Oximetry - Reevaluation(s) Reevaluation #1: 04/02/18 15:02 On reevaluation, patient is significantly improved. Vital signs are stable. EKG Findings - EKG Comments: EKG Findings:: EKG: Sinus bradycardia, right axis deviation, nonspecific T-wave abnormality in lead V2 through V5. This EKG is significantly improved from previous, acute UT 1 week ago. Rate of 58, SC interval 144, QRS duration 82, QTC 418. Medical Decision Making - Medical Decision Making 72-year-old male presented with generalized weakness, nausea vomiting, and inability to tolerate oral liquids or food. Patient does have history of esophageal cancer. He has been dealing with these issues for several weeks to months however it is worsened over the past several days. Patient had recent UT with stenting, he has been able to take his medications as prescribed. Troponin is mildly elevated although significantly down trending and nearly normal. Patient has normal white blood cell count, stable hemoglobin, normal creatinine, chest x-ray negative for focal pneumonia, patient did have symptoms thoracic back pain, T-spine x-ray shows no acute bony abnormality. There is fullness in the right paratracheal region however this may be secondary to previous history of esophageal cancer and esophageal surgery. Patient is offered transfer to [facility] where his surgeon practices. He declines. He prefers outpatient follow-up. He will be given proton pump, Zofran, and pain control. He will return with worsening or changing symptoms. - Lab Data Result diagrams: 04/02/18 13:45 04/02/18 13:45 Lab Results 04/02/18 04/02/18 04/02/18 Range/Units 13:45 13:45 13:45 WBC 5.8 (3.8-10.6) k/uL RBC 4.53 (4.30-5.90) m/uL Hgb 14.1 (13.0-17.5) gm/dL Hct 43.1 (39.0-53.0) % MCV 95.2 (80.0-100.0) fL MCH 31.2 (25.0-35.0) pg MCHC 32.8 (31.0-37.0) g/dL RDW 13.0 (11.5-15.5) % Plt Count 127 L (150-450) k/uL Neutrophils % 81 % Lymphocytes % 7 % Monocytes % 7 % Eosinophils % 3 % Basophils % 1 % Neutrophils # 4.7 (1.3-7.7) k/uL Lymphocytes # 0.4 L (1.0-4.8) k/uL Monocytes # 0.4 (0-1.0) k/uL Eosinophils # 0.2 (0-0.7) k/uL Basophils # 0.0 (0-0.2) k/uL PT (9.0-12.0) sec INR (<1.2) APTT (22.0-30.0) sec Sodium 143 (137-145) mmol/L Potassium 5.2 H (3.5-5.1) mmol/L Chloride 110 H (98-107) mmol/L Carbon Dioxide 26 (22-30) mmol/L Anion Gap 7 mmol/L BUN 28 H (9-20) mg/dL Creatinine 0.90 (0.66-1.25) mg/dL Est GFR (CKD-EPI)AfAm >90 (>60 ml/min/1.73 sqM) Est GFR (CKD-EPI)NonAf 86 (>60 ml/min/1.73 sqM) Glucose 108 H (74-99) mg/dL Plasma Lactic Acid Jakob (0.7-2.0) mmol/L Calcium 9.7 (8.4-10.2) mg/dL Magnesium 2.1 (1.6-2.3) mg/dL Total Bilirubin 0.7 (0.2-1.3) mg/dL AST 38 (17-59) U/L ALT 63 (21-72) U/L Alkaline Phosphatase 130 H (38-126) U/L Total Creatine Kinase 63 (55-170) U/L CK-MB (CK-2) 1.8 (0.0-2.4) ng/mL CK-MB (CK-2) Rel Index 2.9 Troponin I 0.097 H* (0.000-0.034) ng/mL NT-Pro-B Natriuret Pep pg/mL Total Protein 6.3 (6.3-8.2) g/dL Albumin 3.9 (3.5-5.0) g/dL Blood Type Blood Type Recheck Antibody Screen Spec Expiration Date 04/02/18 04/02/18 04/02/18 Range/Units 13:45 13:45 13:45 WBC (3.8-10.6) k/uL RBC (4.30-5.90) m/uL Hgb (13.0-17.5) gm/dL Hct (39.0-53.0) % MCV (80.0-100.0) fL MCH (25.0-35.0) pg MCHC (31.0-37.0) g/dL RDW (11.5-15.5) % Plt Count (150-450) k/uL Neutrophils % % Lymphocytes % % Monocytes % % Eosinophils % % Basophils % % Neutrophils # (1.3-7.7) k/uL Lymphocytes # (1.0-4.8) k/uL Monocytes # (0-1.0) k/uL Eosinophils # (0-0.7) k/uL Basophils # (0-0.2) k/uL PT 11.4 (9.0-12.0) sec INR 1.2 H (<1.2) APTT 23.9 (22.0-30.0) sec Sodium (137-145) mmol/L Potassium (3.5-5.1) mmol/L Chloride (98-107) mmol/L Carbon Dioxide (22-30) mmol/L Anion Gap mmol/L BUN (9-20) mg/dL Creatinine (0.66-1.25) mg/dL Est GFR (CKD-EPI)AfAm (>60 ml/min/1.73 sqM) Est GFR (CKD-EPI)NonAf (>60 ml/min/1.73 sqM) Glucose (74-99) mg/dL Plasma Lactic Acid Jakob 1.1 (0.7-2.0) mmol/L Calcium (8.4-10.2) mg/dL Magnesium (1.6-2.3) mg/dL Total Bilirubin (0.2-1.3) mg/dL AST (17-59) U/L ALT (21-72) U/L Alkaline Phosphatase (38-126) U/L Total Creatine Kinase (55-170) U/L CK-MB (CK-2) (0.0-2.4) ng/mL CK-MB (CK-2) Rel Index Troponin I (0.000-0.034) ng/mL NT-Pro-B Natriuret Pep 595 pg/mL Total Protein (6.3-8.2) g/dL Albumin (3.5-5.0) g/dL Blood Type Blood Type Recheck Antibody Screen Spec Expiration Date 04/02/18 Range/Units 13:45 WBC (3.8-10.6) k/uL RBC (4.30-5.90) m/uL Hgb (13.0-17.5) gm/dL Hct (39.0-53.0) % MCV (80.0-100.0) fL MCH (25.0-35.0) pg MCHC (31.0-37.0) g/dL RDW (11.5-15.5) % Plt Count (150-450) k/uL Neutrophils % % Lymphocytes % % Monocytes % % Eosinophils % % Basophils % % Neutrophils # (1.3-7.7) k/uL Lymphocytes # (1.0-4.8) k/uL Monocytes # (0-1.0) k/uL Eosinophils # (0-0.7) k/uL Basophils # (0-0.2) k/uL PT (9.0-12.0) sec INR (<1.2) APTT (22.0-30.0) sec Sodium (137-145) mmol/L Potassium (3.5-5.1) mmol/L Chloride (98-107) mmol/L Carbon Dioxide (22-30) mmol/L Anion Gap mmol/L BUN (9-20) mg/dL Creatinine (0.66-1.25) mg/dL Est GFR (CKD-EPI)AfAm (>60 ml/min/1.73 sqM) Est GFR (CKD-EPI)NonAf (>60 ml/min/1.73 sqM) Glucose (74-99) mg/dL Plasma Lactic Acid Jakob (0.7-2.0) mmol/L Calcium (8.4-10.2) mg/dL Magnesium (1.6-2.3) mg/dL Total Bilirubin (0.2-1.3) mg/dL AST (17-59) U/L ALT (21-72) U/L Alkaline Phosphatase (38-126) U/L Total Creatine Kinase (55-170) U/L CK-MB (CK-2) (0.0-2.4) ng/mL CK-MB (CK-2) Rel Index Troponin I (0.000-0.034) ng/mL NT-Pro-B Natriuret Pep pg/mL Total Protein (6.3-8.2) g/dL Albumin (3.5-5.0) g/dL Blood Type A Positive Blood Type Recheck CABO Indicated Antibody Screen NEGATIVE Spec Expiration Date 04/05/2018 - 2344 Disposition Clinical Impression: Dehydration, Dysphagia Disposition: HOME SELF-CARE Condition: Fair Instructions: Dehydration (ED) Prescriptions: HYDROcodone/APAP 5-325MG [Ona 5-325] 1 tab PO Q6HR PRN #12 tab PRN Reason: Pain Ondansetron Odt [Zofran Odt] 4 mg PO Q8HR PRN #10 tab PRN Reason: Vomiting Pantoprazole Sodium [Protonix] 40 mg PO DAILY #30 tablet.dr Is patient prescribed a controlled substance at d/c from ED?: Yes When asked, does pt state using other controlled substances?: No If prescribed controlled substance>3 days was MAPS reviewed?: Prescribed <3 Days If opioid is for acute pain is fill amount 7 days or less?: Yes If Rx opioid, was Start Talking consent form obtained?: Yes Referrals: Winston Hoffman MD [Primary Care Provider] - 1-2 days Time of Disposition: 15:05
[2018-04-02 14:00] VITALS: BP 107/58; PULSE 54; RESP 16
--- NOTE | 2018-04-02 14:07 | XR ---
EXAMINATION TYPE: XR chest 2V DATE OF EXAM: 04/02/2018 HISTORY: Weakness. REFERENCE: Previous study dated 03/25/2018. FINDINGS: The lungs are overinflated but clear. Pleural space are clear. The heart is not enlarged. IMPRESSION: PLEASE CORRELATE FOR COPD.
--- NOTE | 2018-04-02 14:08 | XR ---
EXAMINATION TYPE: XR thoracic spine 2V , 3 VIEWS DATE OF EXAM ORDERED: 04/02/2018 HISTORY: Pain. COMPARISON: None. FINDINGS: Vertebral body height and alignment are maintained. There is hypertrophic spondylosis in t he lower dorsal spine. There is fullness in the right paratracheal region which may be due to ectasia of the great vessels. Paraspinal soft tissues are otherwise normal. The pedicles appear intact. IMPRESSION: 1. NO ACUTE OSSEOUS LESION. 2. DEGENERATIVE CHANGE.
[2018-04-02 14:09] LABS: Basophils % (A) 1 %; Eosinophils # (A) 0.2 k/uL (0-0.7); Eosinophils % (A) 3 %; HCT 43.1 % (39.0-53.0); HGB 14.1 gm/dL (13.0-17.5); Lymphocytes # (A) 0.4 k/uL (1.0-4.8); Lymphocytes % (A) 7 %; MCH 31.2 pg (25.0-35.0); MCHC 32.8 g/dL (31.0-37.0); MCV 95.2 fL (80.0-100.0); Mean Platelet Volume 7.8; Monocytes # (A) 0.4 k/uL (0-1.0); Monocytes % (A) 7 %; Neutrophils # (A) 4.7 k/uL (1.3-7.7); Neutrophils % (A) 81 %; Platelet Count 127 k/uL (150-450); RBC 4.53 m/uL (4.30-5.90); WBC 5.8 k/uL (3.8-10.6)
[2018-04-02 14:18] LABS: INR 1.2 (<1.2); Partial Thromboplastin Time 23.9 sec (22.0-30.0); Prothrombin Time 11.4 sec (9.0-12.0)
[2018-04-02 14:19] LABS: ALT 63 U/L (21-72); AST 38 U/L (17-59); Albumin 3.9 g/dL (3.5-5.0); Alkaline Phosphatase 130 U/L (38-126); Anion Gap 7 mmol/L; Blood Urea Nitrogen 28 mg/dL (9-20); Calcium 9.7 mg/dL (8.4-10.2); Carbon Dioxide 26 mmol/L (22-30); Chloride 110 mmol/L (98-107); Glucose 108 mg/dL (74-99); Magnesium 2.1 mg/dL (1.6-2.3); Potassium 5.2 mmol/L (3.5-5.1); Sodium 143 mmol/L (137-145); Total Bilirubin 0.7 mg/dL (0.2-1.3); Total Protein 6.3 g/dL (6.3-8.2)
[2018-04-02 14:41] LABS: Creatine Kinase MB 1.8 ng/mL (0.0-2.4)
[2018-04-02 14:42] LABS: Troponin I 0.097 ng/mL (0.000-0.034)
[2018-04-02] MEDS ORDERED: ONDANSETRON 4 MG ODT STARTER PACK 2 TAB BTL PO STA (15:00)
[2018-04-02] MEDS ORDERED: PANTOPRAZOLE 40 MG/10 ML VIAL IVP STA (15:00)
== END 2018-04-02 15:45 | disposition home or self-care (01) ==
LOC: EC 12:43
DX: E86.0 Dehydration (principal); R13.10 Dysphagia, unspecified; R53.1 Weakness; R11.2 Nausea with vomiting, unspecified; M54.6 Pain in thoracic spine; I25.2 Old myocardial infarction; Z95.5 Presence of coronary angioplasty implant and graft; Z85.01 Personal history of malignant neoplasm of esophagus; Z92.21 Personal history of antineoplastic chemotherapy; Z90.49 Acquired absence of other specified parts of digestive tract; Z87.891 Personal history of nicotine dependence; Z79.82 Long term (current) use of aspirin; Z79.899 Other long term (current) drug therapy
CPT/HCPCS: 99285; 96374; 96375 ×2; 96361 ×2; 36415; 93005; 86900; 86901; 83880; 80053; 82550; 82553; 83605; 83735; 84484; 85025; 85610; 85730; 86850; 87040; 72070; 71046; J2405; J2270; S0119; C9113; 87077; 87186

== ENCOUNTER 2018-04-06 14:03 | Emergency (ER) | payer MEDICARE ==
[2018-04-06] MEDS ORDERED: SODIUM CHLORIDE 0.9% 1,000 ML IV STA (15:20)
[2018-04-06 15:56] LABS: Basophils % (A) 1 %; Eosinophils # (A) 0.1 k/uL (0-0.7); Eosinophils % (A) 2 %; HCT 41.1 % (39.0-53.0); HGB 13.8 gm/dL (13.0-17.5); Lymphocytes # (A) 0.5 k/uL (1.0-4.8); Lymphocytes % (A) 9 %; MCH 31.5 pg (25.0-35.0); MCHC 33.6 g/dL (31.0-37.0); MCV 93.8 fL (80.0-100.0); Mean Platelet Volume 8.1; Monocytes # (A) 0.5 k/uL (0-1.0); Monocytes % (A) 9 %; Neutrophils % (A) 77 %; Platelet Count 110 k/uL (150-450); RBC 4.38 m/uL (4.30-5.90); RDW 13.2 % (11.5-15.5); WBC 5.2 k/uL (3.8-10.6)
[2018-04-06 16:07] LABS: ALT 45 U/L (21-72); AST 26 U/L (17-59); Albumin 3.9 g/dL (3.5-5.0); Alkaline Phosphatase 124 U/L (38-126); Amylase 35 U/L (30-110); Anion Gap 7 mmol/L; Blood Urea Nitrogen 26 mg/dL (9-20); Calcium 9.6 mg/dL (8.4-10.2); Carbon Dioxide 27 mmol/L (22-30); Chloride 106 mmol/L (98-107); Glucose 112 mg/dL (74-99); Lipase 11 U/L (23-300); Potassium 4.1 mmol/L (3.5-5.1); Sodium 140 mmol/L (137-145); Total Bilirubin 0.6 mg/dL (0.2-1.3); Total Protein 6.3 g/dL (6.3-8.2)
--- NOTE | 2018-04-06 16:19 | ED ---
General Adult HPI - General Chief complaint: Recheck/Abnormal Lab/Rx Stated complaint: Abnormal labs Time Seen by Provider: 04/06/18 14:10 Source: patient, family, RN notes reviewed Mode of arrival: wheelchair - History of Present Illness Initial comments: This is a 72-year-old male who presents emergency Department because he was told to come in because of a infection in his blood. Patient states he has been fatigued ever since he had his heart attack to school but the fatigue is gotten worse lately because he is not eating or drinking because he's had esophageal cancer in the past and had an esophagectomy and is supposed to be getting a PEG tube. Patient's perspective does not to be put in place until April 21. Patient states he hopes he can get dehydrated because he has been dehydrated in the past and is felt like this before. Patient denies any fever or chills patient denies any cough. Patient denies any difficulty breathing or chest pain. Patient denies any nausea or vomiting. Patient denies any diarrhea. - Related Data Home Medications Medication Instructions Recorded Confirmed Aspirin EC [Ecotrin Low Dose] 81 mg PO DAILY 01/10/15 04/06/18 ALPRAZolam [Xanax] 0.25 mg PO HS 03/25/18 04/06/18 Cholecalciferol [Vitamin D3] 1,000 unit PO DAILY 03/25/18 04/06/18 Lactulose 10 gm PO DAILY PRN 04/02/18 04/06/18 Bifidobacterium Infantis [Align] 4 mg PO HS 04/06/18 04/06/18 Docusate [Colace] 100 mg PO DAILY 04/06/18 04/06/18 Spironolactone [Aldactone] 12.5 mg PO DAILY 04/06/18 04/06/18 Previous Rx's Medication Instructions Recorded Atorvastatin [Lipitor] 80 mg PO HS #90 tab 03/28/18 Lisinopril [Zestril] 2.5 mg PO DAILY #90 tab 03/28/18 Metoprolol Tartrate [Lopressor] 25 mg PO BID #180 tab 03/28/18 Nitroglycerin Sl Tabs [Nitrostat] 0.4 mg SUBLINGUAL Q5M PRN #25 tab 03/28/18 Prasugrel [Effient] 10 mg PO DAILY #90 tab 03/28/18 HYDROcodone/APAP 5-325MG [[place] 1 tab PO Q6HR PRN #12 tab 04/02/18 5-325] Ondansetron Odt [Zofran Odt] 4 mg PO Q8HR PRN #10 tab 04/02/18 Pantoprazole Sodium [Protonix] 40 mg PO DAILY #30 tablet. 04/02/18 Allergies Allergy/AdvReac Type Severity Reaction Status Date / Time No Known Allergies Allergy Verified 04/06/18 14:36 Review of Systems ROS Statement: Those systems with pertinent positive or pertinent negative responses have been documented in the HPI. ROS Other: All systems not noted in ROS Statement are negative. Past Medical History Past Medical History: Cancer, Hyperlipidemia, Hypertension, Myocardial Infarction ([place]) Additional Past Medical History / Comment(s): HX OF FX RT HIP-NO SURGERY; RINGING IN EARS. DIFF SWALLOWING FOOD, espoghus cancer History of Any Multi-Drug Resistant Organisms: None Reported Past Surgical History: Heart Catheterization With Stent Additional Past Surgical History / Comment(s): COLONOSCOPY, LAST 01/13/15. esophagectomy, radiation and chemotherapy 2 years ago. Past Anesthesia/Blood Transfusion Reactions: No Reported Reaction Date of Last Stent Placement:: 2000 Past Psychological History: No Psychological Hx Reported Smoking Status: Former smoker Past Alcohol Use History: Occasional Past Drug Use History: None Reported - Past Family History Mother Family Medical History: Cancer Additional Family Medical History / Comment(s): COLON General Exam - General Exam Comments Initial Comments: GENERAL: Patient is well-developed and well-nourished. Patient is nontoxic and somewhat cachectic patient appears avulsed quite a bit of weight. no acute distress. ENT: Neck is soft and supple. No significant lymphadenopathy is noted. Oropharynx is clear. Moist mucous membranes. Neck has full range of motion without eliciting any pain. EYES: The sclera were anicteric and conjunctiva were pink and moist. Extraocular movements were intact and pupils were equal round and reactive to light. Eyelids were unremarkable. PULMONARY: Unlabored respirations. Good breath sounds bilaterally. No audible rales rhonchi or wheezing was noted. CARDIOVASCULAR: There is a regular rate and rhythm without any murmurs gallops or rubs. ABDOMEN: Soft and nontender with normal bowel sounds. No palpable organomegaly was noted. There is no palpable pulsatile mass. SKIN: Skin is clear with no lesions or rashes and otherwise unremarkable. NEUROLOGIC: Patient is alert and oriented x3. Cranial nerves II through XII are grossly intact. Motor and sensory are also intact. Normal speech, volume and content. Symmetrical smile. MUSCULOSKELETAL: Normal extremities with adequate strength and full range of motion. No lower extremity swelling or edema. No calf tenderness. LYMPHATICS: No significant lymphadenopathy is noted PSYCHIATRIC: Normal psychiatric evaluation. Course Vital Signs 04/06/18 04/06/18 04/06/18 14:13 15:40 15:45 Temperature 98.4 F Pulse Rate 56 L 51 L Pulse Rate [ 51 L Electronic [employer] ] Respiratory 18 20 Rate Blood Pressure 96/64 98/56 O2 Sat by Pulse 98 99 Oximetry 04/06/18 04/06/18 16:00 16:58 Temperature 97.6 F Pulse Rate 55 L 52 L Pulse Rate [ Electronic [employer] ] Respiratory 15 20 Rate Blood Pressure 104/66 116/59 O2 Sat by Pulse 98 99 Oximetry Medical Decision Making - Medical Decision Making EKG shows sinus bradycardia at 53 bpm MD interval is on a 48 QRSs 80 QT interval is 450 QTC is 422. Patient has some T-wave inversions in precordial leads V4 through V6. As well as 1 and aVL these changes were seen on old EKG. Patient got a liter of fluid and felt considerably better after this. - Lab Data Result diagrams: 04/06/18 15:45 04/06/18 15:45 Lab Results 04/06/18 04/06/18 04/06/18 Range/Units 15:45 15:45 15:45 WBC 5.2 (3.8-10.6) k/uL RBC 4.38 (4.30-5.90) m/uL Hgb 13.8 (13.0-17.5) gm/dL Hct 41.1 (39.0-53.0) % MCV 93.8 (80.0-100.0) fL MCH 31.5 (25.0-35.0) pg MCHC 33.6 (31.0-37.0) g/dL RDW 13.2 (11.5-15.5) % Plt Count 110 L (150-450) k/uL Neutrophils % 77 % Lymphocytes % 9 % Monocytes % 9 % Eosinophils % 2 % Basophils % 1 % Neutrophils # 4.0 (1.3-7.7) k/uL Lymphocytes # 0.5 L (1.0-4.8) k/uL Monocytes # 0.5 (0-1.0) k/uL Eosinophils # 0.1 (0-0.7) k/uL Basophils # 0.0 (0-0.2) k/uL Sodium 140 (137-145) mmol/L Potassium 4.1 (3.5-5.1) mmol/L Chloride 106 (98-107) mmol/L Carbon Dioxide 27 (22-30) mmol/L Anion Gap 7 mmol/L BUN 26 H (9-20) mg/dL Creatinine 0.80 (0.66-1.25) mg/dL Est GFR (CKD-EPI)AfAm >90 (>60 ml/min/1.73 sqM) Est GFR (CKD-EPI)NonAf >90 (>60 ml/min/1.73 sqM) Glucose 112 H (74-99) mg/dL Calcium 9.6 (8.4-10.2) mg/dL Total Bilirubin 0.6 (0.2-1.3) mg/dL AST 26 (17-59) U/L ALT 45 (21-72) U/L Alkaline Phosphatase 124 (38-126) U/L Total Creatine Kinase 49 L (55-170) U/L CK-MB (CK-2) 1.5 (0.0-2.4) ng/mL CK-MB (CK-2) Rel Index 3.1 Troponin I 0.029 (0.000-0.034) ng/mL Total Protein 6.3 (6.3-8.2) g/dL Albumin 3.9 (3.5-5.0) g/dL Amylase 35 (30-110) U/L Lipase 11 L (23-300) U/L Disposition Clinical Impression: Dehydration Disposition: HOME SELF-CARE Condition: Good Instructions: Dehydration (ED) Is patient prescribed a controlled substance at d/c from ED?: No Referrals: Winston Hoffman MD [Primary Care Provider] - 1-2 days Time of Disposition: 17:03
[2018-04-06 16:23] LABS: Creatine Kinase MB 1.5 ng/mL (0.0-2.4); Troponin I 0.029 ng/mL (0.000-0.034)
[2018-04-06 17:24] VITALS: BP 114/69; PULSE 50; RESP 18; TEMP 98.9
== END 2018-04-06 17:24 | disposition home or self-care (01) ==
LOC: EC 14:03
DX: E86.0 Dehydration (principal); I10 Essential (primary) hypertension; I25.2 Old myocardial infarction; Z85.01 Personal history of malignant neoplasm of esophagus; Z95.5 Presence of coronary angioplasty implant and graft; Z92.21 Personal history of antineoplastic chemotherapy; Z87.891 Personal history of nicotine dependence; Z79.82 Long term (current) use of aspirin; Z79.899 Other long term (current) drug therapy
CPT/HCPCS: 36415; 80053; 82150; 82550; 82553; 83690; 84484; 85025; 93005; 96360; 99284

== ENCOUNTER 2018-04-08 09:09 | Inpatient (IN) | payer MEDICARE ==
[2018-04-08] MEDS ORDERED: SODIUM CHLORIDE 0.9% 1,000 ML IV STA (09:30)
[2018-04-08] MEDS ORDERED: MORPHINE SULFATE/PF 10MG/10ML VL IVP STA (09:47)
[2018-04-08] MEDS ORDERED: ONDANSETRON 4 MG/2 ML VIAL IVP STA ×2 (09:47→11:42)
[2018-04-08] MEDS ORDERED: MORPHINE SULFATE 4 MG/ML SYRINGE IVP STA ×2 (09:52→11:42)
[2018-04-08 10:11] LABS: Basophils % (A) 0 %; Eosinophils # (A) 0.1 k/uL (0-0.7); Eosinophils % (A) 1 %; HCT 45.1 % (39.0-53.0); HGB 14.6 gm/dL (13.0-17.5); Lymphocytes # (A) 0.3 k/uL (1.0-4.8); Lymphocytes % (A) 4 %; MCH 30.2 pg (25.0-35.0); MCHC 32.3 g/dL (31.0-37.0); MCV 93.6 fL (80.0-100.0); Mean Platelet Volume 7.9; Monocytes # (A) 0.4 k/uL (0-1.0); Monocytes % (A) 5 %; Neutrophils # (A) 7.3 k/uL (1.3-7.7); Neutrophils % (A) 89 %; Platelet Count 106 k/uL (150-450); RBC 4.82 m/uL (4.30-5.90); RDW 13.1 % (11.5-15.5); WBC 8.1 k/uL (3.8-10.6)
[2018-04-08 10:27] LABS: ALT 43 U/L (21-72); AST 27 U/L (17-59); Alkaline Phosphatase 137 U/L (38-126); Amylase 40 U/L (30-110); Anion Gap 10 mmol/L; Blood Urea Nitrogen 23 mg/dL (9-20); Calcium 9.6 mg/dL (8.4-10.2); Carbon Dioxide 26 mmol/L (22-30); Chloride 108 mmol/L (98-107); Glucose 123 mg/dL (74-99); INR 1.2 (<1.2); Lipase 14 U/L (23-300); Partial Thromboplastin Time 21.8 sec (22.0-30.0); Potassium 4.4 mmol/L (3.5-5.1); Prothrombin Time 11.2 sec (9.0-12.0); Sodium 144 mmol/L (137-145); Total Bilirubin 0.8 mg/dL (0.2-1.3); Total Protein 6.4 g/dL (6.3-8.2)
--- NOTE | 2018-04-08 10:38 | ED ---
Nausea/Vomiting/Diarrhea HPI - General Chief complaint: Nausea/Vomiting/Diarrhea Stated complaint: Cancer pt with dehydration/vomitting Time Seen by Provider: 04/08/18 09:24 Source: patient, family, RN notes reviewed Mode of arrival: wheelchair Limitations: no limitations - History of Present Illness Initial comments: Patient 72-year-old male presented to the emergency room today with a chief complaint of increased nausea vomiting. Patient does have history of esophageal cancer. Status post PA 2 weeks. Patient does admit to increased nausea vomiting started last night. States having difficulty keeping anything down. Patient states she had some generalized weakness. Does admit to some abdominal pain after all the nausea vomiting. Patient denies any other complaints. Patient denies any recent fever, chills, shortness of breath, chest pain, dysuria or hematuria, headaches or visual changes, or any other complaints. - Related Data Home Medications Medication Instructions Recorded Confirmed Aspirin EC [Ecotrin Low Dose] 81 mg PO DAILY 01/10/15 04/06/18 ALPRAZolam [Xanax] 0.25 mg PO HS 03/25/18 04/06/18 Cholecalciferol [Vitamin D3] 1,000 unit PO DAILY 03/25/18 04/06/18 Lactulose 10 gm PO DAILY PRN 04/02/18 04/06/18 Bifidobacterium Infantis [Align] 4 mg PO HS 04/06/18 04/06/18 Docusate [Colace] 100 mg PO DAILY 04/06/18 04/06/18 Spironolactone [Aldactone] 12.5 mg PO DAILY 04/06/18 04/06/18 Previous Rx's Medication Instructions Recorded Atorvastatin [Lipitor] 80 mg PO HS #90 tab 03/28/18 Lisinopril [Zestril] 2.5 mg PO DAILY #90 tab 03/28/18 Metoprolol Tartrate [Lopressor] 25 mg PO BID #180 tab 03/28/18 Nitroglycerin Sl Tabs [Nitrostat] 0.4 mg SUBLINGUAL Q5M PRN #25 tab 03/28/18 Prasugrel [Effient] 10 mg PO DAILY #90 tab 03/28/18 HYDROcodone/APAP 5-325MG [[place] 1 tab PO Q6HR PRN #12 tab 04/02/18 5-325] Ondansetron Odt [Zofran Odt] 4 mg PO Q8HR PRN #10 tab 04/02/18 Pantoprazole Sodium [Protonix] 40 mg PO DAILY #30 tablet. 04/02/18 Allergies Allergy/AdvReac Type Severity Reaction Status Date / Time No Known Allergies Allergy Verified 04/06/18 14:36 Review of Systems ROS Statement: Those systems with pertinent positive or pertinent negative responses have been documented in the HPI. ROS Other: All systems not noted in ROS Statement are negative. Past Medical History Past Medical History: Cancer, Hyperlipidemia, Hypertension, Myocardial Infarction (PA) Additional Past Medical History / Comment(s): HX OF FX RT HIP-NO SURGERY; RINGING IN EARS. DIFF SWALLOWING FOOD, espoghus cancer History of Any Multi-Drug Resistant Organisms: None Reported Past Surgical History: Heart Catheterization With Stent Additional Past Surgical History / Comment(s): COLONOSCOPY, LAST 01/13/15. esophagectomy, radiation and chemotherapy 2 years ago. Past Anesthesia/Blood Transfusion Reactions: No Reported Reaction Date of Last Stent Placement:: 2000 Past Psychological History: No Psychological Hx Reported Smoking Status: Former smoker Past Alcohol Use History: Occasional Past Drug Use History: None Reported - Past Family History Mother Family Medical History: Cancer Additional Family Medical History / Comment(s): COLON General Exam - General Exam Comments Initial Comments: General: The patient is awake and alert, in no distress, and does not appear acutely ill. Eye: Pupils are equal, round and reactive to light, extra-ocular movements are intact. No nystagmus. There is normal conjunctiva bilaterally. No signs of icterus. Ears, nose, mouth and throat: There are moist mucous membranes and no oral lesions. Neck: The neck is supple, there is no tenderness or JVD. Cardiovascular: There is a regular rate and rhythm. No murmur, rub or gallop is appreciated. Respiratory: Lungs are clear to auscultation, respirations are non-labored, breath sounds are equal. No wheezes, stridor, rales, or rhonchi. Gastrointestinal: Abdomen soft on palpation. Tender to palpation epigastric and upper quadrants. No rebound, guarding or CVA tenderness Musculoskeletal: Normal ROM, no tenderness. Strength 5/5. Sensation intact. Pulses equal bilaterally 2+. Neurological: A&O x 3. CN II-XII intact, There are no obvious motor or sensory deficits. Coordination appears grossly intact. Speech is normal. Skin: Skin is warm and dry and no rashes or lesions are noted. Psychiatric: Cooperative, appropriate mood & affect, normal judgment. Limitations: no limitations Course Vital Signs 04/08/18 09:14 Temperature 97.8 F Pulse Rate 82 Respiratory 18 Rate Blood Pressure 111/74 O2 Sat by Pulse 99 Oximetry Medical Decision Making - Medical Decision Making Patient reexamined at this 2 expensive some nausea. Patient does have history of esophageal cancer and a mass that has been seen through imaging at [facility]. There was plans for him to get a feeding tube placed however, patient had a heart attack on 02/23/2018 and the surgery Postponed. Patient has had persistent nausea vomiting over the last several weeks has lost weight. Unable to keep food and medicines down over the last 24 hours. Patient has had multiple visits for the same complaint in the last week. Case discussed with attending physician Dr. Sarmiento who discussed both with admitting physician and on-call oncology. Patient will be admitted continued on pain medicine and nausea medicine and IV fluids at this time. - Lab Data Result diagrams: 04/08/18 09:55 04/08/18 09:55 Lab Results 04/08/18 04/08/18 04/08/18 Range/Units 09:55 09:55 09:55 WBC 8.1 (3.8-10.6) k/uL RBC 4.82 (4.30-5.90) m/uL Hgb 14.6 (13.0-17.5) gm/dL Hct 45.1 (39.0-53.0) % MCV 93.6 (80.0-100.0) fL MCH 30.2 (25.0-35.0) pg MCHC 32.3 (31.0-37.0) g/dL RDW 13.1 (11.5-15.5) % Plt Count 106 L (150-450) k/uL Neutrophils % 89 % Lymphocytes % 4 % Monocytes % 5 % Eosinophils % 1 % Basophils % 0 % Neutrophils # 7.3 (1.3-7.7) k/uL Lymphocytes # 0.3 L (1.0-4.8) k/uL Monocytes # 0.4 (0-1.0) k/uL Eosinophils # 0.1 (0-0.7) k/uL Basophils # 0.0 (0-0.2) k/uL PT (9.0-12.0) sec INR (<1.2) APTT (22.0-30.0) sec Sodium 144 (137-145) mmol/L Potassium 4.4 (3.5-5.1) mmol/L Chloride 108 H (98-107) mmol/L Carbon Dioxide 26 (22-30) mmol/L Anion Gap 10 mmol/L BUN 23 H (9-20) mg/dL Creatinine 0.83 (0.66-1.25) mg/dL Est GFR (CKD-EPI)AfAm >90 (>60 ml/min/1.73 sqM) Est GFR (CKD-EPI)NonAf 89 (>60 ml/min/1.73 sqM) Glucose 123 H (74-99) mg/dL Calcium 9.6 (8.4-10.2) mg/dL Total Bilirubin 0.8 (0.2-1.3) mg/dL AST 27 (17-59) U/L ALT 43 (21-72) U/L Alkaline Phosphatase 137 H (38-126) U/L Total Creatine Kinase 63 (55-170) U/L CK-MB (CK-2) 1.8 (0.0-2.4) ng/mL CK-MB (CK-2) Rel Index 2.9 Troponin I 0.029 (0.000-0.034) ng/mL Total Protein 6.4 (6.3-8.2) g/dL Albumin 4.0 (3.5-5.0) g/dL Amylase 40 (30-110) U/L Lipase 14 L (23-300) U/L 04/08/18 Range/Units 09:55 WBC (3.8-10.6) k/uL RBC (4.30-5.90) m/uL Hgb (13.0-17.5) gm/dL Hct (39.0-53.0) % MCV (80.0-100.0) fL MCH (25.0-35.0) pg MCHC (31.0-37.0) g/dL RDW (11.5-15.5) % Plt Count (150-450) k/uL Neutrophils % % Lymphocytes % % Monocytes % % Eosinophils % % Basophils % % Neutrophils # (1.3-7.7) k/uL Lymphocytes # (1.0-4.8) k/uL Monocytes # (0-1.0) k/uL Eosinophils # (0-0.7) k/uL Basophils # (0-0.2) k/uL PT 11.2 (9.0-12.0) sec INR 1.2 H (<1.2) APTT 21.8 L (22.0-30.0) sec Sodium (137-145) mmol/L Potassium (3.5-5.1) mmol/L Chloride (98-107) mmol/L Carbon Dioxide (22-30) mmol/L Anion Gap mmol/L BUN (9-20) mg/dL Creatinine (0.66-1.25) mg/dL Est GFR (CKD-EPI)AfAm (>60 ml/min/1.73 sqM) Est GFR (CKD-EPI)NonAf (>60 ml/min/1.73 sqM) Glucose (74-99) mg/dL Calcium (8.4-10.2) mg/dL Total Bilirubin (0.2-1.3) mg/dL AST (17-59) U/L ALT (21-72) U/L Alkaline Phosphatase (38-126) U/L Total Creatine Kinase (55-170) U/L CK-MB (CK-2) (0.0-2.4) ng/mL CK-MB (CK-2) Rel Index Troponin I (0.000-0.034) ng/mL Total Protein (6.3-8.2) g/dL Albumin (3.5-5.0) g/dL Amylase (30-110) U/L Lipase (23-300) U/L Disposition Clinical Impression: Intractable nausea and vomiting, Esophageal cancer Disposition: ADMITTED IP TO THIS HOSP Condition: Stable Is patient prescribed a controlled substance at d/c from ED?: No Referrals: Winston Hoffman MD [Primary Care Provider] - 1-2 days Time of Disposition: 11:42
[2018-04-08 10:43] LABS: Creatine Kinase MB 1.8 ng/mL (0.0-2.4); Troponin I 0.029 ng/mL (0.000-0.034)
[2018-04-08] MEDS ORDERED: NALOXONE 0.4 MG/ML 1 ML VIAL IV PRN (11:42)
[2018-04-08] MEDS ORDERED: HYDROmorphone 0.5 MG/0.5 ML SYRINGE IVP PRN (11:42)
[2018-04-08] MEDS ORDERED: SODIUM CHLORIDE 0.9% 1,000 ML IV ONE (11:42)
[2018-04-08] MEDS ORDERED: HYDROmorphone 1 MG/ML 1 ML SYRINGE IVP PRN (12:12)
[2018-04-08] MEDS ORDERED: NITROGLYCERIN SL TABS 0.4 MG TAB SUBLINGUAL PRN (13:23)
[2018-04-08] MEDS: LISINOPRIL 2.5 MG TAB PO SCH (17:47)
[2018-04-08] MEDS: ASPIRIN 81 MG PO SCH (17:47)
[2018-04-08] MEDS: DEXTROSE 5%-0.45% NACL 1,000 ML IV SCH (17:47)
[2018-04-08] MEDS: METOPROLOL TARTRATE 25 MG TAB PO SCH ×2 (17:48→21:26)
[2018-04-08] MEDS: PRASUGREL 10 MG TAB PO SCH (17:48)
[2018-04-08] MEDS: PANTOPRAZOLE 40 MG TABLET PO SCH ×2 (17:48→17:52)
[2018-04-08] MEDS: SPIRONOLACTONE 25 MG TAB PO SCH (17:48)
--- NOTE | 2018-04-08 17:51 | HP ---
HISTORY AND PHYSICAL DATE OF ADMISSION: 04/08/18. PRESENTING COMPLAINT: Nausea and vomiting. HISTORY OF PRESENTING COMPLAINT: This is a pleasant 72-year-old patient of Dr. Winston Hoffman. The patient back in 2016 was diagnosed with esophageal cancer, was followed by Dr. Cesario Talavera. Subsequently patient went down to [facility] where he had total esophagectomy with stomach pull-through. The patient was doing well up until of March 22, 2018 when he was found on a CT scan to have what appears to be an upper abdominal mass. The patient was due to go down to get a biopsy. Went down on March 25, 2018. The patient had acute OH and Dr. Casper did a coronary angioplasty and stenting to the LAD that was successful. The patient was put on aspirin, Effient, beta bryan, MELANIE inhibitors and statin. It may be noted that in the last few weeks the patient has lost weight from 170 pounds to 145 pounds. The patient presented after a last night becoming sick and having multiple episodes of vomiting. There was no blood. Some upper abdominal cramping, feeling weak, tired and run down. Patient's and [id number] are present with him. The patient does feel tired and run down. REVIEW OF SYSTEMS: CONSTITUTIONAL: Tired, weight loss. HEENT: None. RESPIRATORY: None. CARDIOVASCULAR: None. GASTROINTESTINAL: As above. GENITOURINARY: None. MUSCULOSKELETAL: Some aches in the joints. DERMATOLOGICAL: None. HEMATOLOGIC AND LYMPHATIC: None. PSYCHIATRY: A bit anxious. NEUROLOGICAL: Not able to sleep. PAST MEDICAL HISTORY: Hyperlipidemia, hypertension, coronary artery with stent, ringing in the ears, esophageal cancer. PAST SURGICAL HISTORY: Cardiac cath with stent, colonoscopy, esophagectomy with radiation and chemotherapy 2 years ago. SOCIAL HISTORY: The patient used to do alcohol rarely. . Used to smoke in the past. FAMILY HISTORY: Colon cancer. HOME MEDICATIONS: 1. Aldactone 12.5 mg a day. 2. Effient 10 mg a day. 3. Protonix 40 mg a day. 4. Zofran 4 mg q.8h p.r.n. 5. Nitrostat 0.4 sublingual q.5 p.r.n. 6. Lopressor 25 mg b.i.d. 7. Zestril 2.5 p.o. daily. 8. [place] 5 one tablet q.6 p.r.n. 9. Colace 100 mg p.o. b.i.d. 10.Vitamin D3 1000 units p.o. daily. 11.Align 4 mg p.o. q.h.s. 12.Lipitor 80 mg q.h.s. 13.Aspirin 81 mg p.o. daily. 14.Xanax 0.25 p.o. q.h.s. ALLERGIES: None. PHYSICAL EXAMINATION: Temperature 97, pulse 61, respiratory 18, blood pressure 100/57, pulse ox 98% on room air. GENERAL APPEARANCE: Thin built, BMI 20, lying in bed, tired appearing. EYES: Pupils equal. Conjunctivae pale. HEENT: External nose and ears normal. Oral cavity dry mucous membrane. NECK: JVD not raised. Mass not palpable. RESPIRATORY: Effort normal. LUNGS: Diminished breath sounds. CARDIOVASCULAR: 1st and 2nd sounds, no edema. ABDOMEN: Soft, nontender. Liver and spleen not palpable. Scaphoid. LYMPHATIC: No lymph node palpable in the neck or axillae. PSYCHIATRY: Alert and oriented x3. Mood and affect anxious-appearing. NEUROLOGICAL: Pupils equal. Cranial nerves grossly intact. Power and sensation grossly intact. INVESTIGATIONS: White count 8.1, hemoglobin 14.6, platelets 106, potassium 4.4, BUN 23, creatinine 0.83. The patient's 2D echo from 03/27/18 shows multiple wall motion abnormality, EF 35- 40%. ASSESSMENT: 1. Reemergence of upper abdominal mass in a patient who has had esophageal cancer. Given loss of appetite and weight loss, the recurrence of malignancy is highly likely. 2. Acute ST-elevation myocardial infarction occurring on 03/27/18 with stent to the LAD. 3. History of esophageal cancer with total esophagectomy with stomach pull-through. 4. Hyperlipidemia. 5. Essential hypertension. 6. Persistent nausea and vomiting, could be esophagitis. 7. Gastroesophageal reflux disease. 8. Chronic insomnia. 9. Anxiety, not otherwise specified. PLAN: At this point patient's home medications are resumed. Patient is put on D5.45 IV fluids. Will get a K-pad for the patient. Avoid any morphine and Dilaudid as that will precipitate further nausea and vomiting. Also PPIs have been added. Consultation made to Oncology, Cardiology and Dr. Le in case we may need to consider PEG tube. Alternatively, the patient may need to have parenteral nutrition given that he is not able to keep much down. Care was discussed at length with the patient's and sister- in-law. All questions were answered. ISELA / CRISTINEN: [id number] /
[2018-04-08] MEDS: MORPHINE SULFATE 4 MG/ML SYRINGE IV PRN ×2 (17:59→22:27)
[2018-04-08 18:25] LABS: Appearance,Urine Clear (Clear); Bilirubin,Urine Negative (Negative); Blood,Urine Negative (Negative); Color,Urine Yellow; Glucose,Urine (UA) Negative (Negative); Ketones,Urine 1+ (Negative); Leukocyte Esterase,Urine Negative (Negative); Nitrite,Urine Negative (Negative); PH, Urine 5.5 (5.0-8.0); Protein,Urine Negative (Negative); Specific Gravity,Urine 1.018 (1.001-1.035)
[2018-04-08 20:19] LABS: Glucose,Whole Blood 145 mg/dL (75-99)
[2018-04-08] MEDS: ATORVASTATIN 80 MG TAB PO SCH (21:26)
[2018-04-08] MEDS: ALPRAZolam 0.25 MG TAB PO SCH (21:26)
--- NOTE | 2018-04-08 22:15 | P.CONS ---
History of Present Illness - Reason for Consult Consult date: 04/08/18 Esophageal Cancer Requesting physician: Yanick Sagastume - Chief Complaint Nausea and Vomiting - History of Present Illness This is a very nice patient who originally presented with progressive dysphagea about 2 months in June 2015, EGD done on 06/24/2015 revealed a lesion at distal esophagus,biopsy was positive for adenocarcinoma. On 07/05/2015, PET scan revealed no evidence of regional or distant metastatsis. On 07/14/2015, EUS revealed T2Nx disease, however, they were unable to advance scope behind the distal esophageal mass. He was also evaluated by Dr Velasquez at [facility] for potential surgery after neoadjuvant therapy. He started neoadjuvant radiation therapy and weekly carboplatin/taxol on 2014. He completed scott-adjuvant treatment in August 2015 and did not follow- up after this with us, last seen in office by Dr. Talavera on last day of scott- adjuvant chemotherapy 08/25/15. He did go on to have surgical resection at [facility] on October 27, 2015 in which pathology revealed mass was sucessfully resected with zero of nine lymph nodes affected with cancer. He apparently has been following with [facility] since this time. On 03/25/18 he presented with a ST-elevation Myocardial Infarction and underwent catherization and stenting of LAD, since this time he has had progressive weakness, fatigue, abdominal and back pain, asa well as progressive dysphagia with associated nausea and vomiting. Apparently he was found to have suspicion of recurrent esophageal cancer and was scheduled for outpatient biopsy at [facility] at the end of March. On April 02 he presented to the ED with dysphagia, weakness, and nausea and vomiting. Placement of a peg tube was discussed and the patient declined recommended transfer to [facility] for this surgical intervention (with his previous surgical care being at [facility] it was recommended he undergo this procedure at their facility), he apparently declined the transfer and was to follow-up outpatient. He again, presented on 04/06/18 stating he was told to come in after having positive blood cultures and for treatment of dehydration and increased weakness. He was given hydration and discharged home. 04/07/18 - He presents to [facility] again with the progressive and worsening symptoms of dysphagia, nausea and vomiting. He has had a very difficult time keeping anything by mouth down over the past 2 weeks and worse the past 24 hours. He is losing weight (30lbs since October) and having cyclic dehydration, therefore he was admitted for continued symptom control and further work-up. Review of Systems A 14 point review of systems assessed and completed and all negative except HPI Past Medical History Past Medical History: Cancer, Hyperlipidemia, Hypertension, Myocardial Infarction (CO) Additional Past Medical History / Comment(s): HX OF FX RT HIP-NO SURGERY; RINGING IN EARS. DIFF SWALLOWING FOOD, espoghus cancer Last Myocardial Infarction Date:: 03/25/2018 History of Any Multi-Drug Resistant Organisms: None Reported Past Surgical History: Heart Catheterization With Stent Additional Past Surgical History / Comment(s): COLONOSCOPY, LAST 01/13/15. esophagectomy, radiation and chemotherapy 2 years ago. Past Anesthesia/Blood Transfusion Reactions: No Reported Reaction Date of Last Stent Placement:: 2000 Past Psychological History: No Psychological Hx Reported Smoking Status: Former smoker Past Alcohol Use History: Occasional Past Drug Use History: None Reported - Past Family History Mother Family Medical History: Cancer Additional Family Medical History / Comment(s): COLON Medications and Allergies Home Medications Medication Instructions Recorded Confirmed Type Aspirin EC [Ecotrin Low Dose] 81 mg PO DAILY 01/10/15 04/08/18 History ALPRAZolam [Xanax] 0.25 mg PO HS 03/25/18 04/08/18 History Cholecalciferol [Vitamin D3] 1,000 unit PO DAILY 03/25/18 04/08/18 History Atorvastatin [Lipitor] 80 mg PO HS #90 tab 03/28/18 04/08/18 Rx Lisinopril [Zestril] 2.5 mg PO DAILY #90 tab 03/28/18 04/08/18 Rx Metoprolol Tartrate [Lopressor] 25 mg PO BID #180 tab 03/28/18 04/08/18 Rx Nitroglycerin Sl Tabs [Nitrostat] 0.4 mg SUBLINGUAL Q5M PRN #25 tab 03/28/1812/21 Rx Prasugrel [Effient] 10 mg PO DAILY #90 tab 03/28/18 04/08/18 Rx HYDROcodone/APAP 5-325MG [[place] 1 tab PO Q6HR PRN #12 tab 04/02/18 04/08/18 Rx 5-325] Ondansetron Odt [Zofran Odt] 4 mg PO Q8HR PRN #10 tab 04/02/18 04/08/18 Rx Pantoprazole Sodium [Protonix] 40 mg PO DAILY #30 tablet. 04/02/18 04/08/18 Rx Bifidobacterium Infantis [Align] 4 mg PO HS 04/06/18 04/08/18 History Docusate [Colace] 100 mg PO BID 04/06/18 04/08/18 History Spironolactone [Aldactone] 12.5 mg PO DAILY 04/06/18 04/08/18 History Allergies Allergy/AdvReac Type Severity Reaction Status Date / Time No Known Allergies Allergy Verified 04/08/18 11:59 Physical Exam Vitals: Vital Signs Temp Pulse Pulse Resp BP BP Pulse Ox 04/08/18 12:13 97.0 F L 61 18 100/57 98 04/08/18 11:56 97.0 F L 61 18 100/57 98 04/08/18 09:14 97.8 F 82 18 111/74 99 Intake and Output 04/08/18 04/08/18 04/08/18 06:59 14:59 22:59 Other: Weight 65.771 kg 65.771 kg - Constitutional General appearance: cooperative, no acute distress, thin - EENT Eyes: EOMI, dentition normal ENT: NA/AT, normal oropharynx - Neck supple, trachea midline Neck: normal ROM - Respiratory Respiratory: bilateral: CTA - Cardiovascular Rhythm: regular Heart sounds: normal: S1, S2 - Gastrointestinal General gastrointestinal: soft, tenderness - Neurologic No focal Defects Neurologic: CNII-XII intact - Musculoskeletal Musculoskeletal: generalized weakness, strength equal bilaterally - Psychiatric Psychiatric: A&O x's 3, appropriate affect, intact judgment & insight Results CBC & Chem 7: 04/08/18 09:55 04/08/18 09:55 Labs: Abnormal Lab Results - Last 24 Hours (Table) 04/08/18 04/08/18 04/08/18 Range/Units 09:55 09:55 09:55 Plt Count 106 L (150-450) k/uL Lymphocytes # 0.3 L (1.0-4.8) k/uL INR 1.2 H (<1.2) APTT 21.8 L (22.0-30.0) sec Chloride 108 H (98-107) mmol/L BUN 23 H (9-20) mg/dL Glucose 123 H (74-99) mg/dL Alkaline Phosphatase 137 H (38-126) U/L Lipase 14 L (23-300) U/L Assessment and Plan Plan: Assessment and Recommendations: 1. Persistent Nausea and Vomiting 2. Acute on Chronic Dysphagia 3. Recent ST-Elevation CO Status Post Stent on 03/25/18 4. Adenocarcinoma of the Esophagus: - ?Recurrence - Received Scott-Adjuvant Chemotherapy and Radiation from June to August of 2015, Resection of Esophageal mass in October of 2015 at [facility] and has continued with follow-up at [facility] since this time. - Obtain recent diagnostic imaging from [facility] and [facility] 5. Thrombocytopenia - Appears chronic since 2014 - Stable at 106 today, no transfusion needed 6. Unintended weight loss secondary to number 1 and 2: - Unable to be off Aspirin with recent stent, Will discuss with Cardiology and Surgery if plan can be made for biopsy and peg to placement with recent CO and need for AC therapy. ?Heparin drip - procedure Thank you for allowing us to participate in the care of this patient, we will follow along with you.
[2018-04-09] MEDS: MORPHINE SULFATE 4 MG/ML SYRINGE IV PRN ×2 (06:03→10:47)
[2018-04-09 07:20] LABS: Glucose,Whole Blood 113 mg/dL (75-99)
[2018-04-09] MEDS: DEXTROSE 5%-0.45% NACL 1,000 ML IV SCH ×2 (08:22→16:51)
[2018-04-09] MEDS: ASPIRIN 81 MG PO SCH (08:23)
[2018-04-09] MEDS: PRASUGREL 10 MG TAB PO SCH (08:23)
[2018-04-09] MEDS: PANTOPRAZOLE 40 MG TABLET PO SCH ×2 (08:23→17:50)
--- NOTE | 2018-04-09 08:46 | CT ---
EXAMINATION TYPE: CT ChestAbdPelvis wo con DATE OF EXAM: 04/09/2018 COMPARISON: Previous study dated 07/24/2015. HISTORY: History of esophageal cancer, worsening dysphagia and weight loss CT DLP: 414.80 mGycm Automated exposure control for dose reduction was used. TECHNIQUE: Helical acquisition through the abdomen and pelvis was obtained without oral or intravenou s contrast. The data was formatted in the axial, coronal and sagittal projections. FINDINGS: There has been interval esophagectomy and gastric pull-through. Visualized portions of the lungs are clear. There is no significant axillary, mediastinal or hilar adenopathy. There is no pleural or pericardial fluid. The heart is not enlarged. Within the abdomen, the liver, spleen and gallbladder are normal. Both adrenal glands are normal. There are calcifications associated with both kidneys but these are believed to be vascular in nature . There is mild atrophy of the pancreas. There is no significant retroperitoneal, iliac or inguinal adenopathy. There is an infrarenal abdominal aortic aneurysm which is increased from 3.5 cm to 4.1 cm. This exten ds to and involves approximately iliac arteries. The left common iliac artery measures 1.8 cm and the right measures 1.6 cm. The bladder is unremarkable. There is no significant diverticular change and there is no radiographic evidence of diverticulitis. The appendix is not visualized with certainty. Small bowel loops are normal in caliber. There is no free fluid and no free air. There is a mild dextroscoliosis. There is a wedge compression fracture of T7 and to a lesser extent T 8. There is a superior endplate infraction involving the T10 vertebral body. These findings are stabl e. No bony destructive lesion is seen. IMPRESSION: 1. STATUS POST POST ESOPHAGECTOMY AND GASTRIC PULL-THROUGH. 2. NO DEFINITE EVIDENCE OF TUMORAL RECURRENCE OR METASTATIC DISEASE. 3. ENLARGING INFRARENAL ABDOMINAL AORTIC ANEURYSM. 4. STABLE WEDGE COMPRESSION FRACTURES IN THE DORSAL SPINE.
[2018-04-09] MEDS: METOPROLOL TARTRATE 25 MG TAB PO SCH ×2 (09:53→21:44)
[2018-04-09] MEDS: LISINOPRIL 2.5 MG TAB PO SCH (09:53)
--- NOTE | 2018-04-09 09:53 | P.GSCN ---
History of Present Illness Consult date: 04/09/18 Reason for Consult: Dysphagia History of present illness: Patient is known to our service. He was hospitalized one to weeks ago. At that time he had dysphagia and was also found to have an acute myocardial infarction. He underwent cardiac catheterization with stent placement. His dysphagia improved during that hospitalization and he was advised to follow up with [facility]. He has a history of previous esophagectomy and was told recently he may have a recurrence at the level of the diaphragm. Patient comes back to the hospital with recurrent nausea and vomiting. CAT scan of the chest abdomen and pelvis shows a large volume of food and liquid within the gastric pull-through extending down to the diaphragm. There is some haziness there which I suspect represents recurrence although no definite masses identified. We were consulted for feeding tube placement. Review of Systems The patient denies any acute changes in vision or hearing, no shortness of breath, no dysuria or hematuria, no headache, no runny nose, no rectal bleeding or melena Past Medical History Past Medical History: Cancer, Hyperlipidemia, Hypertension, Myocardial Infarction ([place]) Additional Past Medical History / Comment(s): HX OF FX RT HIP-NO SURGERY; RINGING IN EARS. DIFF SWALLOWING FOOD, espoghus cancer Last Myocardial Infarction Date:: 03/25/2018 History of Any Multi-Drug Resistant Organisms: None Reported Past Surgical History: Heart Catheterization With Stent Additional Past Surgical History / Comment(s): COLONOSCOPY, LAST 01/13/15. esophagectomy, radiation and chemotherapy 2 years ago. Past Anesthesia/Blood Transfusion Reactions: No Reported Reaction Date of Last Stent Placement:: 2000 Past Psychological History: No Psychological Hx Reported Smoking Status: Former smoker Past Alcohol Use History: Occasional Past Drug Use History: None Reported - Past Family History Mother Family Medical History: Cancer Additional Family Medical History / Comment(s): COLON Medications and Allergies Home Medications Medication Instructions Recorded Confirmed Type Aspirin EC [Ecotrin Low Dose] 81 mg PO DAILY 01/10/15 04/08/18 History ALPRAZolam [Xanax] 0.25 mg PO HS 03/25/18 04/08/18 History Cholecalciferol [Vitamin D3] 1,000 unit PO DAILY 03/25/18 04/08/18 History Atorvastatin [Lipitor] 80 mg PO HS #90 tab 03/28/18 04/08/18 Rx Lisinopril [Zestril] 2.5 mg PO DAILY #90 tab 03/28/18 04/08/18 Rx Metoprolol Tartrate [Lopressor] 25 mg PO BID #180 tab 03/28/18 04/08/18 Rx Nitroglycerin Sl Tabs [Nitrostat] 0.4 mg SUBLINGUAL Q5M PRN #25 tab 03/28/1812/21 Rx Prasugrel [Effient] 10 mg PO DAILY #90 tab 03/28/18 04/08/18 Rx HYDROcodone/APAP 5-325MG [[place] 1 tab PO Q6HR PRN #12 tab 04/02/18 04/08/18 Rx 5-325] Ondansetron Odt [Zofran Odt] 4 mg PO Q8HR PRN #10 tab 04/02/18 04/08/18 Rx Pantoprazole Sodium [Protonix] 40 mg PO DAILY #30 tablet. 04/02/18 04/08/18 Rx Bifidobacterium Infantis [Align] 4 mg PO HS 04/06/18 04/08/18 History Docusate [Colace] 100 mg PO BID 04/06/18 04/08/18 History Spironolactone [Aldactone] 12.5 mg PO DAILY 04/06/18 04/08/18 History Allergies Allergy/AdvReac Type Severity Reaction Status Date / Time No Known Allergies Allergy Verified 04/08/18 11:59 Surgical - Exam Vital Signs Temp Pulse Resp BP Pulse Ox 97.8 F 82 18 111/74 99 04/08/18 09:14 04/08/18 09:14 04/08/18 09:14 04/08/18 09:14 04/08/18 09:14 Physical exam: General: Well-developed, somewhat malnourished appearing HEENT: Normocephalic, sclerae nonicteric Abdomen: Nontender, nondistended Extremities: No edema Neuro: Alert and oriented Results - Labs 04/08/18 09:55 04/08/18 09:55 Abnormal Lab Results - Last 24 Hours (Table) 04/08/18 04/08/18 04/08/18 Range/Units 09:55 09:55 09:55 Plt Count 106 L (150-450) k/uL Lymphocytes # 0.3 L (1.0-4.8) k/uL INR 1.2 H (<1.2) APTT 21.8 L (22.0-30.0) sec Chloride 108 H (98-107) mmol/L BUN 23 H (9-20) mg/dL Glucose 123 H (74-99) mg/dL POC Glucose (mg/dL) (75-99) mg/dL Alkaline Phosphatase 137 H (38-126) U/L Lipase 14 L (23-300) U/L Urine Ketones (Negative) 04/08/18 04/08/18 04/09/18 Range/Units 17:07 20:18 07:19 Plt Count (150-450) k/uL Lymphocytes # (1.0-4.8) k/uL INR (<1.2) APTT (22.0-30.0) sec Chloride (98-107) mmol/L BUN (9-20) mg/dL Glucose (74-99) mg/dL POC Glucose (mg/dL) 145 H 113 H (75-99) mg/dL Alkaline Phosphatase (38-126) U/L Lipase (23-300) U/L Urine Ketones 1+ H (Negative) Diabetes panel 04/08/18 Range/Units 09:55 Sodium 144 (137-145) mmol/L Potassium 4.4 (3.5-5.1) mmol/L Chloride 108 H (98-107) mmol/L Carbon Dioxide 26 (22-30) mmol/L BUN 23 H (9-20) mg/dL Creatinine 0.83 (0.66-1.25) mg/dL Glucose 123 H (74-99) mg/dL Calcium 9.6 (8.4-10.2) mg/dL AST 27 (17-59) U/L ALT 43 (21-72) U/L Alkaline Phosphatase 137 H (38-126) U/L Total Protein 6.4 (6.3-8.2) g/dL Albumin 4.0 (3.5-5.0) g/dL Calcium panel 04/08/18 Range/Units 09:55 Calcium 9.6 (8.4-10.2) mg/dL Albumin 4.0 (3.5-5.0) g/dL Pituitary panel 04/08/18 Range/Units 09:55 Sodium 144 (137-145) mmol/L Potassium 4.4 (3.5-5.1) mmol/L Chloride 108 H (98-107) mmol/L Carbon Dioxide 26 (22-30) mmol/L BUN 23 H (9-20) mg/dL Creatinine 0.83 (0.66-1.25) mg/dL Glucose 123 H (74-99) mg/dL Calcium 9.6 (8.4-10.2) mg/dL Adrenal panel 04/08/18 Range/Units 09:55 Sodium 144 (137-145) mmol/L Potassium 4.4 (3.5-5.1) mmol/L Chloride 108 H (98-107) mmol/L Carbon Dioxide 26 (22-30) mmol/L BUN 23 H (9-20) mg/dL Creatinine 0.83 (0.66-1.25) mg/dL Glucose 123 H (74-99) mg/dL Calcium 9.6 (8.4-10.2) mg/dL Total Bilirubin 0.8 (0.2-1.3) mg/dL AST 27 (17-59) U/L ALT 43 (21-72) U/L Alkaline Phosphatase 137 H (38-126) U/L Total Protein 6.4 (6.3-8.2) g/dL Albumin 4.0 (3.5-5.0) g/dL Assessment and Plan (1) Esophageal cancer Narrative/Plan: Patient is not a candidate for PEG tube placement. Laparoscopic jejunostomy feeding tube placement would require general anesthesia and cessation of his anticoagulation. Patient's best option for ventral feeding is a interventional radiology performed percutaneous jejunostomy feeding tube. Patient also may be a candidate for stent placement at the distal aspect of this gastric pouch. This evaluation and management should be performed at [facility] where they are familiar with the patient. For now recommend TPN and nothing by mouth given the CAT scan findings. Current Visit: Yes Status: Acute Code(s): C15.9 - MALIGNANT NEOPLASM OF ESOPHAGUS, UNSPECIFIED SNOMED Code(s): 414736269
[2018-04-09] MEDS: SPIRONOLACTONE 25 MG TAB PO SCH (09:54)
[2018-04-09 11:51] LABS: Glucose,Whole Blood 125 mg/dL (75-99)
--- NOTE | 2018-04-09 12:51 | P.PN ---
Subjective Progress Note Date: 04/09/18 Principal diagnosis: Dysphagia Reviewed CT scan, no apparent sign of metastatic recurrence. Objective - Vital Signs Vital signs: Vital Signs Temp 98.4 F 04/09/18 05:00 Pulse 65 04/09/18 09:53 Resp 16 04/09/18 05:00 BP 109/60 04/09/18 09:53 Pulse Ox 97 04/09/18 05:00 Intake & Output 04/08/18 04/09/18 04/09/18 18:59 06:59 18:59 Intake Total 710 Balance 710 Weight 65.771 kg Intake: Oral 710 Other: Voiding Method Toilet Toilet Toilet # Voids 2 - Constitutional General appearance: Present: cooperative, no acute distress, thin - EENT Eyes: Present: EOMI, dentition normal ENT: Present: NA/AT, normal oropharynx - Neck Details: Supple, midline Neck: Present: normal ROM - Respiratory Respiratory: bilateral: CTA (No increased respiratory effort) - Cardiovascular Rhythm: regular Heart sounds: normal: S1, S2 - Gastrointestinal General gastrointestinal: Present: normal bowel sounds, soft - Integumentary Integumentary: Present: pale - Neurologic Neurologic Comment(s): no focal defects Neurologic: Present: CNII-XII intact - Musculoskeletal Musculoskeletal: Present: generalized weakness, strength equal bilaterally - Psychiatric Psychiatric: Present: A&O x's 3, appropriate affect, intact judgment & insight - Labs CBC & Chem 7: 04/08/18 09:55 04/08/18 09:55 Labs: Abnormal Lab Results - Last 24 Hours (Table) 04/08/18 04/08/18 04/09/18 Range/Units 17:07 20:18 07:19 POC Glucose (mg/dL) 145 H 113 H (75-99) mg/dL Urine Ketones 1+ H (Negative) 04/09/18 Range/Units 11:50 POC Glucose (mg/dL) 125 H (75-99) mg/dL Urine Ketones (Negative) Assessment and Plan Plan: Assessment and Recommendations: 1. Persistent Nausea and Vomiting 2. Acute on Chronic Dysphagia 3. Recent ST-Elevation ID Status Post Stent on 03/25/18 4. Adenocarcinoma of the Esophagus: - ?Recurrence, would need EGD to confirm this, may need dilation secondary to scar tissue growth, recommend follow-up at [facility] for this - Received Scott-Adjuvant Chemotherapy and Radiation from June to August of 2015, Resection of Esophageal mass in October of [address] [facility] and has continued with follow-up at [facility] since this time. - Obtain recent diagnostic imaging from [facility] and [facility] 5. Thrombocytopenia - Appears chronic since 2014 - Stable at 106 today, no transfusion needed 6. Unintended weight loss secondary to number 1 and 2: - Unable to be off Aspirin with recent stent, - Picc line and TPN until able to undergo more invasive procedures safely with anticoagulation requirements - Physician Attestation: I have completed the full history and physical of this patient and agree with above dictation by Shirley Martinez NP. DIctated as a scribe Thank you for allowing us to participate in the care of this patient, we will follow along with you.
[2018-04-09] MEDS: ACETAMINOPHEN TAB 325 MG TAB PO PRN (16:42)
[2018-04-09] MEDS ORDERED: LACTATED RINGERS 1,000 ML IV SCH (19:15)
[2018-04-09] MEDS: ALPRAZolam 0.25 MG TAB PO SCH (21:44)
[2018-04-09] MEDS: ATORVASTATIN 80 MG TAB PO SCH (21:44)
--- NOTE | 2018-04-10 00:19 | PN ---
PROGRESS NOTE DATE OF SERVICE: 04/09/2018. PRESENTING COMPLAINT: Nausea, vomiting. INTERVAL HISTORY: This is a patient with prior esophageal cancer and esophagectomy and gastric pull- through, presented with weight loss, nausea, vomiting. The patient was made n.p.o. with Dr. Le. The patient is sitting up and playing some crosswords. REVIEW OF SYSTEMS: Done for constitutional, cardiovascular, GI, pulmonary; relevant findings as above. CURRENT MEDICATIONS: Reviewed that include IV fluids and IV morphine. PHYSICAL EXAMINATION: Temperature 97, pulse 53, respiratory rate 18, blood pressure 98/56, pulse ox 100% on room. GENERAL APPEARANCE: Sitting up, awake. EYES: Pupils equal. Conjunctivae pale. HEENT: External nose and ears normal. Oral cavity dry. NECK: JVD not raised. Mass not palpable. Respiratory effort normal. LUNGS: Decreased breath sounds. CARDIOVASCULAR: 1st and 2nd sounds normal. No edema. ABDOMEN: Soft, nontender. Liver and spleen not palpable. PSYCHIATRY: Alert and oriented x3. Mood is slightly anxious-appearing. INVESTIGATIONS: CT scan of the abdomen and pelvis results are noted. ASSESSMENT: 1. CT scan of chest and abdomen discussed with Dr. Le, showing retained food and in view of weight loss this could be intraluminal mass present. 2. Acute ST-elevation myocardial infarction occurring on March 27, 2018, with stent to the left anterior descending. 3. Esophageal cancer with total esophagectomy with stomach pull-through. 4. Hyperlipidemia. 5. Essential hypertension. 6. Possible esophagitis. 7. Gastroesophageal reflux disease. 8. Chronic insomnia. 9. Anxiety, not otherwise specified. PLAN: I talked to Dr. Le from General Surgery who looked at the CT scan. There was lot of gastric debris in there. Hence he has made the patient n.p.o. I did speak to Shirley Martinez, did convey the same to her, said the same to her. At this point I have ordered a PICC line for TPN to be started tomorrow. Also spoke to Dr. Huey Day earlier today, in view of the stent just 2 weeks ago it is not advisable to do any procedure right now obviously, in view of high risk of restenosis. Earlier in the day I did speak to the patient and told him I would get back to him. IV fluids to be continued. The n.p.o. status to be maintained. Total time spent today was about 45 minutes, with over 25 minutes of discussion. MMODL / IJN: [id number] /
[2018-04-10] MEDS: HYDROcodone/APAP 5-325MG 1 EACH TAB PO PRN ×2 (00:53→08:41)
--- NOTE | 2018-04-10 08:02 | CONS ---
CONSULTATION Mr. Marlow is a 72-year-old gentleman who is seen for cardiac evaluation. The patient's medical records were reviewed. This patient is admitted with history of recurrent nausea and vomiting. History of esophageal cancer and esophageal surgery and patient might have recurrence recently at the level of the back. The patient was admitted about 2 or 3 weeks ago with dysphagia and was found to acute myocardial infarction and underwent stent to the LAD. Since then the patient has been doing fairly well. He is not having anginal pain or shortness of breath. The patient was supposed to be follow up of for further evaluation regarding his cancer at [facility]. PAST MEDICAL HISTORY: Includes a history of recent myocardial infarction, hypertension, hyperlipidemia, surgery for esophageal cancer and history of right hip surgery. HOME MEDICATIONS: The patient's home medications include baby aspirin, Xanax 0.25 mg daily, vitamin D3, Lipitor 80 mg daily, Zestril 2.5 mg daily, metoprolol 25 mg b.i.d. and Aldactone 25 mg daily and Effient 10 mg a day. PHYSICAL EXAMINATION: At present reveals a 72-year-old gentleman who at present does not appear to be in any acute distress. The patient is afebrile. Blood pressure is 111/74 mmHg. Respiratory rate is 18. HEENT and neck examinations are unremarkable. Heart: First and second heart sounds are normal. Lungs are clinically clear to auscultation and percussion. Abdomen is soft and nontender. Extremities: Peripheral pulses 2+. The patient's electrolytes are normal. Creatinine is 0.3, hemoglobin is 14.6. Liver enzymes are normal. FINAL IMPRESSION: This patient is stable cardiac torres with history of present acute anterior wall myocardial infarction and stent to the LAD. The patient was admitted with nausea and vomiting and difficulty in swallowing with reoccurrence of the possible tumor at the esophagus. I discussed his condition with the patient and Dr. Nunez. The patient has a higher risk of stopping any antiplatelet agent for any kind of intervention. If we can avoid and treat the patient with a PICC line that would be the best option for next 4-6 weeks. At present, we will continue the patient on aspirin and Effient. MMODL / IJN: [id number] /
[2018-04-10] MEDS: SPIRONOLACTONE 25 MG TAB PO SCH (08:40)
[2018-04-10] MEDS: LISINOPRIL 2.5 MG TAB PO SCH (08:41)
[2018-04-10] MEDS: METOPROLOL TARTRATE 25 MG TAB PO SCH ×2 (08:41→20:29)
[2018-04-10] MEDS: ASPIRIN 81 MG PO SCH (08:41)
[2018-04-10] MEDS: PANTOPRAZOLE 40 MG TABLET PO SCH ×2 (08:41→16:28)
[2018-04-10] MEDS: PRASUGREL 10 MG TAB PO SCH (08:44)
[2018-04-10] MEDS: DEXTROSE 5%-0.45% NACL 1,000 ML IV SCH ×2 (12:55→20:33)
--- NOTE | 2018-04-10 14:09 | P.PN ---
Subjective Progress Note Date: 04/10/18 Principal diagnosis: Dysphagia Re-review of CT scan was concerning for recurrence with the amount of contents unable to pass. Discussed with Dr. Guzman and Dr. Nunez and Patient. It is felt best for patient to be transferred to [facility] for EGD, will need transfusion of platlets during this procedure with recent TX and need for Anti- platlet medications with recent Stent. In the interim he will require some form of nutrition, therefore a picc line and TPN will be the short term resolution. Objective - Vital Signs Vital signs: Vital Signs Temp 98.0 F 04/10/18 08:52 Pulse 50 L 04/10/18 08:52 Resp 16 04/10/18 08:52 BP 113/70 04/10/18 08:52 Pulse Ox 99 04/10/18 08:52 Intake & Output 04/09/18 04/10/18 04/10/18 18:59 06:59 18:59 Intake Total 900 Balance 900 Intake: Intake, IV Titration 900 Amount Dextrose 5%-0.45% NaCl 1, 900 000 ml @ 75 mls/hr IV . [id number] [facility] Rx#:[id number] Other: Voiding Method Toilet Toilet Toilet Urinal Urinal # Voids 2 1 - Constitutional General appearance: Present: cooperative, no acute distress - EENT Eyes: Present: EOMI, PERRLA, dentition normal ENT: Present: NA/AT, normal oropharynx - Neck Details: supple, Trachea midline Neck: Present: normal ROM - Respiratory Respiratory: bilateral: CTA - Cardiovascular Rhythm: regular Heart sounds: normal: S1, S2 - Gastrointestinal General gastrointestinal: Present: decreased bowel sounds, soft, tenderness - Integumentary Integumentary: Present: pale - Neurologic Neurologic: Present: CNII-XII intact - Musculoskeletal Musculoskeletal: Present: gait normal, generalized weakness, strength equal bilaterally - Psychiatric Psychiatric: Present: A&O x's 3, appropriate affect, intact judgment & insight - Labs CBC & Chem 7: 04/08/18 09:55 04/08/18 09:55 Assessment and Plan Plan: Assessment and Recommendations: 1. Persistent Nausea and Vomiting 2. Acute on Chronic Dysphagia 3. Recent ST-Elevation [place] Status Post Stent on 03/25/18 4. Adenocarcinoma of the Esophagus: - ?Recurrence, would need EGD to confirm this, may need dilation secondary to scar tissue growth, recommend follow-up at [facility] for this - Received Scott-Adjuvant Chemotherapy and Radiation from June to August of 2015, Resection of Esophageal mass in October of 2015 at [facility] and has continued with follow-up at [facility] since this time. - Obtain recent diagnostic imaging from [facility] and [facility] 5. Thrombocytopenia - Appears chronic since 2014 - Stable today, no transfusion needed 6. Unintended weight loss secondary to number 1 and 2: - Unable to be off Aspirin with recent stent, - Picc line and TPN until able to undergo more invasive procedures safely with anticoagulation requirements - Re-review of CT scan was concerning for recurrence with the amount of contents unable to pass. Discussed with Dr. Guzman and Dr. Nunez and Patient. It is felt best for patient to be transferred to [facility] for EGD, will need transfusion of platlets during this procedure with recent TX and need for Anti-platlet medications with recent Stent. In the interim he will require some form of nutrition, therefore a picc line and TPN will be the short term resolution. Physician Attestation: I have completed the full history and physical of this patient and agree with above dictation by Shirley Martinez NP. DIctated as a scribe Thank you for allowing us to participate in the care of this patient, we will follow along with you.
--- NOTE | 2018-04-10 14:20 | CONS ---
CONSULTATION This is a 72-year-old gentleman who was seen on consultation for abdominal aortic aneurysm. The patient had history of cancer surgery done at [facility]. patient came with nausea and vomiting and chest pain. The patient went for a coronary stent placement. The patient was seen by surgery and I was consulted for infrarenal abdominal aortic aneurysm. PAST MEDICAL HISTORY: Include history of myocardial infarction, hypertension, hyperlipidemia, surgery of esophageal cancer and right hip surgery. The patient was seen in his room. The patient still has nausea and vomiting. Neck is supple. Chest is clear. Abdomen is soft. No peritoneal signs noted. Femoral pulses are present. Patient has a pulsatile, nontender mass. The patient has infrarenal abdominal aortic aneurysm. Discussed with the family. The patient is going to [facility] for another surgical intervention for esophageal cancer causing the obstruction. I will review the CT scan and follow with you. Thank you very much. MMODL / IJN: [id number] /
[2018-04-10] MEDS ORDERED: LIDOCAINE 1% INJ 10MG/ML (20 ML MDV) ONE (14:30)
[2018-04-10] MEDS ORDERED: LIDOCAINE 1% INJ 10MG/ML (20 ML MDV) SQ ONE (14:40)
--- NOTE | 2018-04-10 14:42 | P.PN ---
Subjective Progress Note Date: 04/10/18 Principal diagnosis: Dysphagia Patient had increased pain across the mid back yesterday. Still having dysphagia and emesis. TPN to start after PICC line placed today. Objective - Vital Signs Vital signs: Vital Signs Temp 98.0 F 04/10/18 08:52 Pulse 50 L 04/10/18 08:52 Resp 16 04/10/18 08:52 BP 113/70 04/10/18 08:52 Pulse Ox 99 04/10/18 08:52 Intake & Output 04/09/18 04/10/18 04/10/18 18:59 06:59 18:59 Intake Total 900 Balance 900 Intake: Intake, IV Titration 900 Amount Dextrose 5%-0.45% NaCl 1, 900 000 ml @ 75 mls/hr IV . [id number] [facility] Rx#:[id number] Other: Voiding Method Toilet Toilet Toilet Urinal Urinal # Voids 2 1 2 - Exam Abdomen: Soft, nondistended, mild epigastric tenderness - Labs CBC & Chem 7: 04/08/18 09:55 04/08/18 09:55 Assessment and Plan (1) Esophageal cancer Narrative/Plan: Agree with PICC line and TPN. Inpatient or outpatient evaluation at [facility]. Current Visit: Yes Status: Acute Code(s): C15.9 - MALIGNANT NEOPLASM OF ESOPHAGUS, UNSPECIFIED SNOMED Code(s): 004511392
--- NOTE | 2018-04-10 16:46 | IR ---
EXAMINATION TYPE: IR cvc insert >=5 years DATE OF EXAM: 04/10/2018 COMPARISON: NONE CLINICAL HISTORY: Needs long-term intravenous access for total parenteral nutrition. PROCEDURE: After informed consent, the skin overlying the left basilic vein was localized with ultrasound and no cynthai to be compressible and patent. An ultrasound image was obtained and submitted on the patient's c alberts. The overlying skin was prepped and draped and Lidocaine was used for local anesthesia. A skin gracie was made with a scalpel. Access was gained to the vein under ultrasound guidance with a 21 gau ge needle and a 0.018 inch wire was advanced. Access site was dilated with Peel-Away sheath and cath eter tailored to the appropriate length and advanced such that the distal tip is at the cavoatrial ju nction. Spot image was obtained verifying placement. Catheter was fixed to the skin and a sterile d ressing was placed following hemostasis. Catheter was aspirated and flushed with saline. Patient wa s discharged in stable condition without complication.Maximal barrier technique is utilized. Ultraso und image is documented on the chart. Ultrasound used with sterile technique. Fluoro time and fluoroscopic images submitted to document procedure: 77 intraoperative C-arm images, 0.2 minutes fluoroscopy time IMPRESSION: STATUS POST ULTRASOUND AND FLUOROSCOPIC GUIDED PICC LINE PLACEMENT, READY FOR USE. THIS PROCEDURE WAS PERFORMED BY THE UNDERSIGNED.
[2018-04-10] MEDS: ALPRAZolam 0.25 MG TAB PO SCH (20:29)
--- NOTE | 2018-04-10 20:56 | PN ---
PROGRESS NOTE DATE OF SERVICE: 04/10/2018 PRESENTING COMPLAINT: Abdominal pain. INTERVAL HISTORY: This is a patient with prior esophageal cancer with esophagectomy and gastric pull- through. He presented with weight loss, nausea, vomiting. CT scan is showing food backed up, up toward the level of the thyroid, with some constriction in the area of the diaphragm. Patient was bothered with pain this morning. I started the patient on a Duragesic patch and discontinued the p.o. [place]. Later now, the pain is much better controlled. REVIEW OF SYSTEMS: Done for constitutional, cardiovascular, GI, pulmonary; relevant findings as above. CURRENT MEDICATIONS: Reviewed. IV morphine was discontinued. Patient is on a Duragesic patch of 12, IV fluids. PHYSICAL EXAMINATION: Temperature 98, pulse 50, respiration 16, blood pressure 113/70, pulse ox 99% on room air. GENERAL APPEARANCE: Sitting up in a chair, awake. EYES: Pupils equal. Conjunctivae pale. HEENT: External appearance of nose and ears normal. Oral cavity dry. NECK: JVD not raised. Mass not palpable. RESPIRATORY: Effort normal. LUNGS: Decreased breath sounds. CARDIOVASCULAR: First and second sounds normal. No edema. ABDOMEN: Soft, non-tender. Liver and spleen not palpable. PSYCHIATRY: Alert and oriented x3. Mood and affect slightly anxious-appearing. INVESTIGATIONS: Accu-Cheks are noted. CT scan of abdomen and pelvis reviewed with the radiologist. A lot of food debris collected in the stomach from the diaphragm up to the thyroid level, and there could be an intraluminal or extraluminal mass. They will report this again on the CT scan results. ASSESSMENT: 1. Severe food retention in the esophagus with distal obstruction to the level of the diaphragm. 2. Possible recurrence of a mass; cannot say if it is intra- or extraluminal. 3. Acute ST-elevation myocardial infarction occurring on March 27 with stent to the left anterior descending coronary artery. 4. Esophageal cancer with total esophagectomy. 5. Stomach pull-through, now with recurrence of a mass, location unclear. 6. Hyperlipidemia. 7. Essential hypertension. 8. Possible esophagitis. 9. Gastroesophageal reflux disease. 10.Chronic insomnia. 11.Anxiety not otherwise specified. PLAN: Spoke this morning to Shirley from Oncology, gave her an update of the CT scan findings. Also then spoke with the radiologist, Dr. Nichole, and she is going to update the CT scan results that there is food debris up to the thyroid and mass. Also spoke to the transfer team at [facility], surgical team, who have accepted the patient there. Also then spoke to the patient and his at length and described what is going on. For better control, [place] was discontinued and I started the patient on Duragesic patch, to which patient is responding well. Also spoke to Dr. Huey Day from Cardiology and gave him an update of the clinical picture. Total time spent today was about 50 minutes, with over 35 minutes of discussion. MMODL / IJN: [id number] /
[2018-04-10] MEDS: ATORVASTATIN 80 MG TAB PO SCH (21:36)
[2018-04-11] MEDS: ACETAMINOPHEN TAB 325 MG TAB PO PRN ×2 (08:53→14:45)
[2018-04-11] MEDS: LISINOPRIL 2.5 MG TAB PO SCH (08:54)
[2018-04-11] MEDS: METOPROLOL TARTRATE 25 MG TAB PO SCH ×2 (08:54→22:23)
[2018-04-11] MEDS: ASPIRIN 81 MG PO SCH (08:54)
[2018-04-11] MEDS: PANTOPRAZOLE 40 MG TABLET PO SCH ×2 (08:54→17:35)
[2018-04-11] MEDS: DEXTROSE 5%-0.45% NACL 1,000 ML IV SCH (08:54)
[2018-04-11] MEDS: PRASUGREL 10 MG TAB PO SCH (08:55)
[2018-04-11] MEDS: SPIRONOLACTONE 25 MG TAB PO SCH (08:55)
[2018-04-11 13:14] LABS: ALT 48 U/L (21-72); AST 28 U/L (17-59); Albumin 3.4 g/dL (3.5-5.0); Alkaline Phosphatase 107 U/L (38-126); Anion Gap 7 mmol/L; Blood Urea Nitrogen 12 mg/dL (9-20); Calcium 9.1 mg/dL (8.4-10.2); Carbon Dioxide 26 mmol/L (22-30); Chloride 108 mmol/L (98-107); Glucose 104 mg/dL (74-99); Magnesium 1.8 mg/dL (1.6-2.3); Phosphorus 3.7 mg/dL (2.5-4.5); Potassium 3.7 mmol/L (3.5-5.1); Sodium 141 mmol/L (137-145); Total Bilirubin 0.7 mg/dL (0.2-1.3); Total Protein 5.6 g/dL (6.3-8.2); Triglycerides 64 mg/dL (<150)
--- NOTE | 2018-04-11 13:16 | P.PN ---
Subjective Progress Note Date: 04/11/18 Principal diagnosis: Dysphagia Increased back pain today. Awaiting Pic line placement and will begin TPN following. Objective - Vital Signs Vital signs: Vital Signs Temp 98.3 F 04/11/18 07:00 Pulse 53 L 04/11/18 10:50 Resp 58 H 04/11/18 10:50 BP 93/56 04/11/18 07:00 Pulse Ox 98 04/11/18 07:00 Intake & Output 04/10/18 04/11/18 04/11/18 18:59 06:59 18:59 Intake Total 900 Balance 900 Weight 65.771 kg Intake: Intake, IV Titration 900 Amount Dextrose 5%-0.45% NaCl 1, 900 000 ml @ 75 mls/hr IV . [id number] [facility] Rx#:[id number] Other: Voiding Method Toilet Toilet Toilet Urinal Urinal Urinal # Voids 2 2 - Constitutional General appearance: Present: cooperative, no acute distress - EENT Eyes: Present: EOMI, PERRLA, dentition normal ENT: Present: hard of hearing, NA/AT, normal oropharynx - Neck Details: Supple, Trachea midline Neck: Present: normal ROM - Respiratory Respiratory: bilateral: CTA (No increased effort) - Cardiovascular Rhythm: irregularly irregular - Gastrointestinal General gastrointestinal: Present: normal bowel sounds, soft, tenderness - Integumentary Integumentary: Present: pale - Neurologic Neurologic Comment(s): no focal defects Neurologic: Present: CNII-XII intact - Musculoskeletal Musculoskeletal: Present: generalized weakness, strength equal bilaterally - Psychiatric Psychiatric: Present: A&O x's 3, appropriate affect, intact judgment & insight - Labs CBC & Chem 7: 04/08/18 09:55 04/08/18 09:55 Assessment and Plan Plan: Assessment and Recommendations: 1. Persistent Nausea and Vomiting - Improved 2. Acute on Chronic Dysphagia - NPO CT C/A/P revealed large volume of food and liquid within the gastric pull- through extending down to the diaphragm. There is some haziness there which I suspect represents recurrence although no definite masses identified. We were consulted for feeding tube placement. 3. Recent ST-Elevation [place] Status Post Stent on 03/25/18 4. Adenocarcinoma of the Esophagus: - ?Recurrence, would need EGD to confirm this, may need dilation secondary to scar tissue growth, recommend follow-up at [facility] for this - Received Scott-Adjuvant Chemotherapy and Radiation from June to August of 2015, Resection of Esophageal mass in October of 2015 at [facility] and has continued with follow-up at [facility] since this time. - Obtain recent diagnostic imaging from [facility] and [facility] 5. Thrombocytopenia - Appears chronic since 2014 - Last 106 on 04/08 - recheck today 6. Unintended weight loss secondary to number 1 and 2: - Unable to be off Aspirin with recent stent, - Picc line and TPN - Plan Today - until able to undergo more invasive procedures safely with anticoagulation requirements - Re-review of CT scan was concerning for recurrence with the amount of contents unable to pass. Discussed with Dr. Guzman and Dr. Nunez and Patient. It is felt best for patient to be transferred to [facility] for EGD, will need transfusion of platlets during this procedure with recent DC and need for Anti-platlet medications with recent Stent. In the interim he will require some form of nutrition, therefore a picc line and TPN will be the short term resolution. Thank you for allowing us to participate in the care of this patient, we will follow along with you.
[2018-04-11 13:17] LABS: Ionized Calcium 5.1 mg/dL (4.5-5.3)
[2018-04-11 13:48] LABS: Basophils % (A) 0 %; Eosinophils # (A) 0.2 k/uL (0-0.7); Eosinophils % (A) 3 %; HCT 36.4 % (39.0-53.0); HGB 12.2 gm/dL (13.0-17.5); Lymphocytes # (A) 0.4 k/uL (1.0-4.8); Lymphocytes % (A) 9 %; MCH 31.4 pg (25.0-35.0); MCHC 33.6 g/dL (31.0-37.0); MCV 93.6 fL (80.0-100.0); Mean Platelet Volume 7.8; Monocytes # (A) 0.4 k/uL (0-1.0); Monocytes % (A) 8 %; Neutrophils # (A) 3.6 k/uL (1.3-7.7); Neutrophils % (A) 78 %; RBC 3.89 m/uL (4.30-5.90); RDW 13.1 % (11.5-15.5); WBC 4.6 k/uL (3.8-10.6)
[2018-04-11 13:56] LABS: Platelet Count 84 k/uL (150-450)
[2018-04-11] MEDS ORDERED: MVI, ADULT NO.4 WITH VIT K 10 ML, TRACE (CONC-1ML/DOSE) 1 ML in AMINO ACID 5%-D15W+LYTE... IV SCH ×3 (14:00)
[2018-04-11] MEDS: FAT EMULSION 20% 250 ML IV SCH (14:42)
--- NOTE | 2018-04-11 17:36 | P.PN ---
Subjective Progress Note Date: 04/11/18 Principal diagnosis: Dysphagia Patient says his pain is improved. Mild pain in the back. Still having dysphagia. TPN is now going through PICC line. Objective - Vital Signs Vital signs: Vital Signs Temp 97.6 F 04/11/18 15:00 Pulse 50 L 04/11/18 15:00 Resp 16 04/11/18 15:00 BP 125/74 04/11/18 15:00 Pulse Ox 98 04/11/18 15:00 Intake & Output 04/10/18 04/11/18 04/11/18 18:59 06:59 18:59 Intake Total 900 450 Balance 900 450 Weight 65.771 kg Intake: Intake, IV Titration 900 450 Amount Dextrose 5%-0.45% NaCl 1, 900 450 000 ml @ 75 mls/hr IV . [id number] [facility] Rx#:[id number] Other: Voiding Method Toilet Toilet Toilet Urinal Urinal Urinal # Voids 2 2 - Exam Abdomen: Soft, nondistended, mild epigastric tenderness - Labs CBC & Chem 7: 04/11/18 12:41 04/11/18 12:41 Labs: Abnormal Lab Results - Last 24 Hours (Table) 04/11/18 04/11/18 Range/Units 12:41 12:41 RBC 3.89 L (4.30-5.90) m/uL Hgb 12.2 L (13.0-17.5) gm/dL Hct 36.4 L (39.0-53.0) % Plt Count 84 L (150-450) k/uL Lymphocytes # 0.4 L (1.0-4.8) k/uL Chloride 108 H (98-107) mmol/L Creatinine 0.60 L (0.66-1.25) mg/dL Glucose 104 H (74-99) mg/dL Total Protein 5.6 L (6.3-8.2) g/dL Albumin 3.4 L (3.5-5.0) g/dL Assessment and Plan (1) Esophageal cancer Narrative/Plan: Agree with plans for transfer to [facility] for definitive treatment of obstruction. Continue nothing by mouth for now. Continue TPN. We 'll sign off. Current Visit: Yes Status: Acute Code(s): C15.9 - MALIGNANT NEOPLASM OF ESOPHAGUS, UNSPECIFIED SNOMED Code(s): 892059157
[2018-04-11 18:10] LABS: Glucose,Whole Blood 101 mg/dL (75-99)
[2018-04-11 20:11] LABS: Hemoglobin A1C 6.3 % (4.0-6.0)
[2018-04-11] MEDS: ONDANSETRON 4 MG/2 ML VIAL IVP PRN (20:49)
[2018-04-11] MEDS: ALPRAZolam 0.25 MG TAB PO SCH (22:23)
[2018-04-11] MEDS: ATORVASTATIN 80 MG TAB PO SCH (22:23)
--- NOTE | 2018-04-11 23:57 | PN ---
PROGRESS NOTE DATE OF SERVICE: 04/11/2018. PRESENT COMPLAINT: Back pain. INTERVAL HISTORY: This patient presents with esophageal cancer. This is a patient with known esophageal cancer and esophagectomy with gastric pull-through. Presented with nausea and vomiting. The patient was found to have food backed up to the level of the thyroid. Hence was made n.p.o. The patient also got a Duragesic patch, which pain is better controlled. PICC line was placed yesterday and patient was started on TPN lipids this afternoon. The patient is up and about in the hallway, awaiting transfer to the [facility] who accepted the patient but no beds are available. The patient's , [id number] and sister are present. REVIEW OF SYSTEMS: Done for constitutional, cardiovascular, GI, pulmonary; relevant findings as above. CURRENT MEDICATIONS: Reviewed, include Duragesic/TPN lipids. PHYSICAL EXAMINATION: Temperature 98.3, pulse 58, respiration 16, blood pressure 93/56, pulse ox 98% on room. GENERAL APPEARANCE: Sitting up, awake. EYES: Pupils equal. Conjunctivae pale. HEENT: External nose and ears normal. Oral cavity dry. NECK: JVD not raised. Mass not palpable. Respiratory effort normal. LUNGS: Decreased breath sounds. CARDIOVASCULAR: 1st and 2nd heart sounds. No edema. ABDOMEN: Soft, nontender. Liver and spleen not palpable. PSYCHIATRY: Alert and oriented x3. Mood and affect slightly anxious-appearing. INVESTIGATIONS: White count 4.6, hemoglobin 12.2, potassium 3.7, BUN 12, creatinine 0.60. ASSESSMENT: 1. Severe food retention in the gastric remnant with obstruction near the level of the diaphragm. 2. History of esophagectomy with gastric pull-through. 3. Possible recurrence of the intraluminal or extraluminal mass. 4. Acute ST-elevation myocardial infarction occurring on March 24 with stent to the left LAD. 5. Hyperlipidemia. 6. Essential hypertension. 7. Possibly esophagitis. 8. Gastroesophageal reflux disease. 9. Chronic insomnia. 10.Anxiety, not otherwise specified. PLAN: Care was discussed with the patient and family. The patient is ambulating in the hallway. Awaiting transfer. In the meantime, TPN and lipids to continue. MMODL / IJN: [id number] /
[2018-04-12 01:31] LABS: Glucose,Whole Blood 109 mg/dL (75-99)
[2018-04-12] MEDS: ACETAMINOPHEN TAB 325 MG TAB PO PRN ×3 (06:40→19:59)
[2018-04-12 06:48] LABS: Glucose,Whole Blood 107 mg/dL (75-99)
[2018-04-12] MEDS: PANTOPRAZOLE 40 MG TABLET PO SCH ×2 (07:33→18:04)
[2018-04-12 08:16] LABS: Anion Gap 7 mmol/L; Blood Urea Nitrogen 14 mg/dL (9-20); Calcium 9.6 mg/dL (8.4-10.2); Carbon Dioxide 29 mmol/L (22-30); Chloride 107 mmol/L (98-107); Glucose 106 mg/dL (74-99); Phosphorus 3.9 mg/dL (2.5-4.5); Potassium 4.1 mmol/L (3.5-5.1); Sodium 143 mmol/L (137-145)
[2018-04-12] MEDS: ASPIRIN 81 MG PO SCH (09:16)
[2018-04-12] MEDS: METOPROLOL TARTRATE 25 MG TAB PO SCH (09:16)
[2018-04-12] MEDS: PRASUGREL 10 MG TAB PO SCH (09:16)
[2018-04-12] MEDS: LISINOPRIL 2.5 MG TAB PO SCH (09:16)
[2018-04-12] MEDS: SPIRONOLACTONE 25 MG TAB PO SCH (09:16)
[2018-04-12 12:21] LABS: Glucose,Whole Blood 91 mg/dL (75-99)
--- NOTE | 2018-04-12 13:03 | P.PN ---
Subjective Progress Note Date: 04/12/18 Principal diagnosis: Dysphagia TPN is infusing, and patients sister at bedside during evaluation. Awaiting transfer to [facility]. Objective - Vital Signs Vital signs: Vital Signs Temp 98.1 F 04/12/18 05:00 Pulse 55 L 04/12/18 07:41 Resp 16 04/12/18 07:41 BP 116/76 04/12/18 05:00 Pulse Ox 98 04/12/18 05:00 Intake & Output 04/11/18 04/12/18 04/12/18 18:59 06:59 18:59 Intake Total 450 800 Balance 450 800 Weight 65.771 kg 65.771 kg Intake: Intake, IV Titration 450 160 Amount Dextrose 5%-0.45% NaCl 1, 450 000 ml @ 75 mls/hr IV . [id number] [facility] Rx#:[id number] Mvi, Adult No.4 with Vit 160 K 10 ml Trace (Conc-1Ml/ Dose) 1 ml In Amino Acid 5%-D15w+Lytes*E* 1,000 ml @ 30 mls/hr IV .Q24H [facility] Rx#:[id number] Oral 640 Other: Voiding Method Toilet Toilet Toilet Urinal Urinal Urinal # Voids 3 - Constitutional General appearance: Present: cooperative, no acute distress, thin - EENT Eyes: Present: EOMI, dentition normal, normal appearance ENT: Present: hard of hearing, NA/AT, normal oropharynx - Neck Details: Supple, Trachea midline Neck: Present: normal ROM - Respiratory Respiratory: bilateral: CTA (No increased respiratory effort) - Cardiovascular Rhythm: regular Heart sounds: normal: S1, S2 - Gastrointestinal General gastrointestinal: Present: normal bowel sounds, soft - Integumentary Integumentary: Present: pale - Neurologic Neurologic: Present: CNII-XII intact - Musculoskeletal Musculoskeletal: Present: generalized weakness, strength equal bilaterally - Psychiatric Psychiatric: Present: A&O x's 3, appropriate affect, intact judgment & insight - Labs CBC & Chem 7: 04/11/18 12:41 04/12/18 07:08 Labs: Abnormal Lab Results - Last 24 Hours (Table) 04/11/18 04/11/18 04/11/18 Range/Units 12:41 12:41 12:41 RBC 3.89 L (4.30-5.90) m/uL Hgb 12.2 L (13.0-17.5) gm/dL Hct 36.4 L (39.0-53.0) % Plt Count 84 L (150-450) k/uL Lymphocytes # 0.4 L (1.0-4.8) k/uL Chloride 108 H (98-107) mmol/L Creatinine 0.60 L (0.66-1.25) mg/dL Glucose 104 H (74-99) mg/dL POC Glucose (mg/dL) (75-99) mg/dL Hemoglobin A1c 6.3 H (4.0-6.0) % Total Protein 5.6 L (6.3-8.2) g/dL Albumin 3.4 L (3.5-5.0) g/dL 04/11/18 04/12/18 04/12/18 Range/Units 18:09 01:29 06:47 RBC (4.30-5.90) m/uL Hgb (13.0-17.5) gm/dL Hct (39.0-53.0) % Plt Count (150-450) k/uL Lymphocytes # (1.0-4.8) k/uL Chloride (98-107) mmol/L Creatinine (0.66-1.25) mg/dL Glucose (74-99) mg/dL POC Glucose (mg/dL) 101 H 109 H 107 H (75-99) mg/dL Hemoglobin A1c (4.0-6.0) % Total Protein (6.3-8.2) g/dL Albumin (3.5-5.0) g/dL 04/12/18 Range/Units 07:08 RBC (4.30-5.90) m/uL Hgb (13.0-17.5) gm/dL Hct (39.0-53.0) % Plt Count (150-450) k/uL Lymphocytes # (1.0-4.8) k/uL Chloride (98-107) mmol/L Creatinine (0.66-1.25) mg/dL Glucose 106 H (74-99) mg/dL POC Glucose (mg/dL) (75-99) mg/dL Hemoglobin A1c (4.0-6.0) % Total Protein (6.3-8.2) g/dL Albumin (3.5-5.0) g/dL Assessment and Plan Plan: Assessment and Recommendations: 1. Persistent Nausea and Vomiting - Improved 2. Acute on Chronic Dysphagia - NPO CT C/A/P revealed large volume of food and liquid within the gastric pull- through extending down to the diaphragm. There is some haziness there which I suspect represents recurrence although no definite masses identified. - Patient will be transferred to [facility] so further evaluation can be made 3. Recent ST-Elevation [place] Status Post Stent on 03/25/18 4. Adenocarcinoma of the Esophagus: - ?Recurrence, would need EGD to confirm this, may need dilation secondary to scar tissue growth, recommend follow-up at [facility] for this - Received Scott-Adjuvant Chemotherapy and Radiation from June to August of 2015, Resection of Esophageal mass in October of 2015 at [facility] and has continued with follow-up at [facility] since this time. - Obtain recent diagnostic imaging from [facility] and [facility] 5. Thrombocytopenia - Appears chronic since 2014 - Last 106 on 04/08 - recheck 04/11/18 = 84 - Will need to monitor closely and keep above 50K 6. Unintended weight loss secondary to number 1 and 2: - Unable to be off Aspirin with recent stent, - Picc line and TPN - Plan Today - until able to undergo more invasive procedures safely with anticoagulation requirements - Re-review of CT scan was concerning for recurrence with the amount of contents unable to pass. Discussed with Dr. Guzman and Dr. Nunez and Patient. It is felt best for patient to be transferred to [facility] for EGD, will need transfusion of platlets during this procedure with recent [place] and need for Anti-platlet medications with recent Stent. In the interim he will require some form of nutrition, therefore a picc line and TPN will be the short term resolution. - I have discussed the re-read of CT scan with patient and and questions answered. - I have discussed case with Dr. Le and Dr. Nunez and all agree on transfer for further evaluation Thank you for allowing us to participate in the care of this patient, we will follow along with you.
[2018-04-12] MEDS: FAT EMULSION 20% 250 ML IV SCH (14:22)
[2018-04-12] MEDS: 1: MVI, ADULT NO.4 WITH VIT K 10 ML, TRACE (CONC-1ML/DOSE) 1 ML in AMINO ACID 5%-D15W+LY IV SCH ×3 (14:30)
[2018-04-12 17:58] LABS: Glucose,Whole Blood 108 mg/dL (75-99)
--- NOTE | 2018-04-12 22:01 | PN ---
PROGRESS NOTE DATE OF SERVICE: 04/12/2018 PRESENTING COMPLAINT: Nausea, vomiting. INTERVAL HISTORY: This is a patient with total esophagectomy with gastric pull-through, found to have food backed up about the level of the thyroid. Has been started on TPN. Pain is controlled with a Duragesic patch. Patient is up and about in the hallway. REVIEW OF SYSTEMS: Done for constitutional, cardiovascular, GI, pulmonary; relevant findings as above. The patient has not had a bowel movement. CURRENT MEDICATIONS: Reviewed that include: 1. Duragesic patch and. 2. TPN lipids. EXAMINATION: Temperature 97.9, pulse 50, respirations 18, blood pressure 128/79, pulse ox 100% on room air. GENERAL APPEARANCE: Sitting up in a chair, playing crosswords. EYES: Pupils equal. Conjunctivae pale. HEENT: External nose and ears normal. Oral cavity dry. NECK: JVD not raised. Mass not palpable. RESPIRATORY: Effort normal. LUNGS: Decreased breath sounds. CARDIOVASCULAR: First and second sounds normal. No edema. ABDOMEN: Soft, nontender. Liver and spleen not palpable. PSYCHIATRY: Alert and oriented x3. Mood and affect anxious-appearing. INVESTIGATIONS: Potassium 4.1, BUN and creatinine normal. Accu-Cheks are noted. ASSESSMENT: 1. Severe fluid retention in the gastric portion with obstruction near the level of the diaphragm. Currently no nausea, vomiting. 2. History of esophagectomy with gastric pull-through. 3. Possible recurrence of intraluminal or extraluminal mass around the area of the diaphragm. 4. Acute ST-elevation myocardial infarction occurring on April 01 with stent to the left anterior descending. 5. Hyperlipidemia. 6. Essential hypertension. 7. Possibly esophagitis. 8. Gastroesophageal reflux disease. 9. Chronic insomnia. 10.Anxiety, not otherwise specified. 11.Chronic back pain, which is now responding to Duragesic patch. PLAN: I spoke to Kim from the cardiothoracic team at [facility]. They were actually planning to send the patient home. I did explain to them it is important the patient gets an EGD, as number one, the food has to be suctioned out. Secondly, that is the only way we can make sure that the patient's antiplatelet agents are getting absorbed. Also spoke to the patient and his , did explain that I had talked to them. Also spoke to the residential case manager in anticipation in case he was not accepted and he will be discharged home on TPN lipids. For the constipation, we will give the patient an enema. Total time spent today was about 40 minutes with over 25 minutes of discussion. Also because of bradycardia, the dose of Lopressor will be cut back to 12.5 twice a day. ISELA / JONA: [id number] /
[2018-04-12] MEDS: ALPRAZolam 0.25 MG TAB PO SCH (23:36)
[2018-04-12] MEDS: METOPROLOL TARTRATE 12.5 MG TAB PO SCH (23:36)
[2018-04-12] MEDS: ATORVASTATIN 80 MG TAB PO SCH (23:36)
[2018-04-13 02:36] LABS: Glucose,Whole Blood 112 mg/dL (75-99)
[2018-04-13] MEDS: 1: MVI, ADULT NO.4 WITH VIT K 10 ML, TRACE (CONC-1ML/DOSE) 1 ML in AMINO ACID 5%-D15W+LY IV SCH ×6 (03:09→14:49)
[2018-04-13] MEDS: FAMOTIDINE 20 MG/2 ML VIAL IV SCH ×3 (03:10→21:56)
[2018-04-13] MEDS: ACETAMINOPHEN TAB 325 MG TAB PO PRN ×2 (03:14→18:28)
[2018-04-13] MEDS: ONDANSETRON 4 MG/2 ML VIAL IVP PRN ×2 (05:03→12:51)
[2018-04-13 05:53] LABS: Glucose,Whole Blood 112 mg/dL (75-99)
[2018-04-13 07:21] LABS: Anion Gap 5 mmol/L; Blood Urea Nitrogen 18 mg/dL (9-20); Calcium 8.8 mg/dL (8.4-10.2); Carbon Dioxide 27 mmol/L (22-30); Chloride 109 mmol/L (98-107); Glucose 119 mg/dL (74-99); Phosphorus 4.1 mg/dL (2.5-4.5); Potassium 3.8 mmol/L (3.5-5.1); Sodium 141 mmol/L (137-145)
[2018-04-13] MEDS: SPIRONOLACTONE 25 MG TAB PO SCH (10:16)
[2018-04-13] MEDS: ASPIRIN 81 MG PO SCH (10:16)
[2018-04-13] MEDS: LISINOPRIL 2.5 MG TAB PO SCH (10:16)
[2018-04-13] MEDS: METOPROLOL TARTRATE 12.5 MG TAB PO SCH ×2 (10:16→21:56)
[2018-04-13] MEDS: PANTOPRAZOLE 40 MG TABLET PO SCH ×2 (10:16→18:24)
[2018-04-13] MEDS: PRASUGREL 10 MG TAB PO SCH (10:16)
[2018-04-13 11:53] LABS: Glucose,Whole Blood 113 mg/dL (75-99)
[2018-04-13] MEDS: FAT EMULSION 20% 250 ML IV SCH (14:50)
[2018-04-13 17:09] LABS: Glucose,Whole Blood 129 mg/dL (75-99)
--- NOTE | 2018-04-13 17:10 | P.PN ---
Subjective Progress Note Date: 04/13/18 Principal diagnosis: Dysphagia TPN is infusing, and patients sister at bedside during evaluation. Awaiting to hear about transfer, no acute events overnight or new complaints Objective - Vital Signs Vital signs: Vital Signs Temp 98.4 F 04/13/18 14:53 Pulse 62 04/13/18 16:00 Resp 16 04/13/18 16:00 BP 96/61 04/13/18 14:53 Pulse Ox 97 04/13/18 14:53 Intake & Output 04/12/18 04/13/18 04/13/18 18:59 06:59 18:59 Intake Total 210 2851 210 Balance 210 2851 210 Weight 66.1 kg Intake: Intake, IV Titration 210 2651 210 Amount Amino Acid 5%-D15w+Lytes* 940 E* 1,000 ml @ 83 mls/hr IV .BY DURATION [facility] Rx#: [id number] Fat Emulsion 20% 250 ml @ 700 210 20.833 mls/hr IV Q24H [facility] Rx#:[id number] Mvi, Adult No.4 with Vit 210 K 10 ml Trace (Conc-1Ml/ Dose) 1 ml In Amino Acid 5%-D15w+Lytes*E* 1,000 ml @ 30 mls/hr IV .Q24H [facility] Rx#:[id number] Mvi, Adult No.4 with Vit 1011 K 10 ml Trace (Conc-1Ml/ Dose) 1 ml In Amino Acid 5%-D15w+Lytes*E* 1,000 ml @ 83 mls/hr IV .BY DURATION [facility] Rx#: [id number] Oral 200 Other: Voiding Method Toilet Toilet Toilet Urinal Urinal Urinal # Voids 3 - Constitutional General appearance: Present: cooperative, no acute distress, thin - EENT Eyes: Present: EOMI, dentition normal ENT: Present: NA/AT, normal oropharynx - Neck Details: supple, trachea midline Neck: Present: normal ROM - Respiratory Respiratory: bilateral: CTA - Cardiovascular Rhythm: regular Heart sounds: normal: S1, S2 - Gastrointestinal General gastrointestinal: Present: decreased bowel sounds, soft, tenderness - Integumentary Integumentary: Present: pale - Neurologic Neurologic Comment(s): No focal defects Neurologic: Present: CNII-XII intact - Musculoskeletal Musculoskeletal: Present: generalized weakness, strength equal bilaterally - Psychiatric Psychiatric: Present: A&O x's 3, appropriate affect, intact judgment & insight - Labs CBC & Chem 7: 04/11/18 12:41 04/13/18 06:40 Labs: Abnormal Lab Results - Last 24 Hours (Table) 04/12/18 04/13/18 04/13/18 Range/Units 17:56 02:34 05:50 Chloride (98-107) mmol/L Glucose (74-99) mg/dL POC Glucose (mg/dL) 108 H 112 H 112 H (75-99) mg/dL 04/13/18 04/13/18 Range/Units 06:40 11:43 Chloride 109 H (98-107) mmol/L Glucose 119 H (74-99) mg/dL POC Glucose (mg/dL) 113 H (75-99) mg/dL Assessment and Plan Plan: Assessment and Recommendations: 1. Persistent Nausea and Vomiting - Improved 2. Acute on Chronic Dysphagia - NPO CT C/A/P revealed large volume of food and liquid within the gastric pull- through extending down to the diaphragm. There is some haziness there which I suspect represents recurrence although no definite masses identified. - Patient will be transferred to [facility] so further evaluation can be made 3. Recent ST-Elevation [place] Status Post Stent on 03/25/18 4. Adenocarcinoma of the Esophagus: - ?Recurrence, would need EGD to confirm this, may need dilation secondary to scar tissue growth, recommend follow-up at [facility] for this - Received Scott-Adjuvant Chemotherapy and Radiation from June to August of 2015, Resection of Esophageal mass in October of 2015 at [facility] and has continued with follow-up at [facility] since this time. - Obtain recent diagnostic imaging from [facility] and [facility] 5. Thrombocytopenia - Appears chronic since 2014 - Last 106 on 04/08 - recheck 04/11/18 = 84 - Will need to monitor closely and keep above 50K 6. Unintended weight loss secondary to number 1 and 2: - Unable to be off Aspirin with recent stent, - Picc line and TPN - Plan Today - until able to undergo more invasive procedures safely with anticoagulation requirements - Re-review of CT scan was concerning for recurrence with the amount of contents unable to pass. Discussed with Dr. Guzman and Dr. Nunez and Patient. It is felt best for patient to be transferred to [facility] for EGD, will need transfusion of platlets during this procedure with recent [place] and need for Anti-platlet medications with recent Stent. In the interim he will require some form of nutrition, therefore a picc line and TPN will be the short term resolution. - I have discussed the re-read of CT scan with patient and and questions answered. - I have discussed case with Dr. Nunez today who has been staying in contact with [facility] daily regarding the recommendation of transfer. Awaiting acceptance, still plan of transfer Thank you for allowing us to participate in the care of this patient, we will follow along with you.
[2018-04-13] MEDS: ATORVASTATIN 80 MG TAB PO SCH (21:56)
[2018-04-13] MEDS: ALPRAZolam 0.25 MG TAB PO SCH (21:56)
--- NOTE | 2018-04-13 22:20 | PN ---
PROGRESS NOTE DATE OF SERVICE: 04/13/2018 PRESENTING COMPLAINT: Abdominal discomfort. INTERVAL HISTORY: This is a patient with total esophagectomy with gastric pull-through, found to have food backed up at the level of the thyroid; has been on TPN. The patient is felt to have a possible mass in the epigastric area. Awaiting transfer to [facility]. The patient is otherwise up and about in the hallway. The patient is only taking oral medications. REVIEW OF SYSTEMS: Done for constitutional, cardiovascular, GI, pulmonary; relevant findings as above. CURRENT MEDICATIONS: Reviewed. They include TPN and lipids. PHYSICAL EXAMINATION: Temperature 98.4, pulse 62, respiration 16, blood pressure 96/61, pulse ox 97% on room air. GENERAL APPEARANCE: Sitting up in a chair. Comfortable. EYES: Pupils equal. Conjunctivae pale. HEENT: External appearance of nose and ears normal. Oral cavity normal. NECK: JVD not raised. Mass not palpable. RESPIRATORY: Effort normal. LUNGS: Decreased breath sounds. CARDIOVASCULAR: First and second sounds normal. No edema. ABDOMEN: Soft. Minimal tenderness. Liver and spleen not palpable. PSYCHIATRY: Alert and oriented x3. Mood and affect normal. INVESTIGATIONS: Potassium 3.8. BUN and creatinine are normal. Accu-Cheks are noted. ASSESSMENT: 1. Severe food retention in the gastric portion with obstruction near the level of the diaphragm. Some bouts of nausea are present. 2. 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 3. Possible recurrence of intraluminal or extraluminal mass around the area of the diaphragm. 4. Acute OX-dqjncdnli-qipjkixqmi infarction that occurred on 03/27 with a stent to the left anterior descending coronary artery. 5. Hyperlipidemia. 6. Essential hypertension. 7. Possible esophagitis. 8. Chronic insomnia. 9. Anxiety not otherwise specified. 10.Chronic back pain. Pain is controlled with Duragesic patch. PLAN: Still awaiting visit from [facility]. Currently no beds available. I had a lengthy talk with the patient, his , his [id number]. At this point we have decided that if patient is transferred by tomorrow, elvis. Otherwise, patient will be discharged home with the TPN and lipids and he may then decide to go to the [facility] or wait for them to call him. Patient did get a enema yesterday with some liquid stool. MMODL / IJN: [id number] /
[2018-04-14 01:22] LABS: Glucose,Whole Blood 99 mg/dL (75-99)
[2018-04-14] MEDS: 1: MVI, ADULT NO.4 WITH VIT K 10 ML, TRACE (CONC-1ML/DOSE) 1 ML in AMINO ACID 5%-D15W+LY IV SCH ×3 (03:44)
[2018-04-14 06:22] LABS: Glucose,Whole Blood 120 mg/dL (75-99)
[2018-04-14 08:22] LABS: Anion Gap 4 mmol/L; Blood Urea Nitrogen 23 mg/dL (9-20); Calcium 8.8 mg/dL (8.4-10.2); Carbon Dioxide 27 mmol/L (22-30); Chloride 110 mmol/L (98-107); Glucose 117 mg/dL (74-99); Magnesium 2.1 mg/dL (1.6-2.3); Potassium 3.8 mmol/L (3.5-5.1); Sodium 141 mmol/L (137-145)
[2018-04-14] MEDS: ASPIRIN 81 MG PO SCH (09:48)
[2018-04-14] MEDS: PANTOPRAZOLE 40 MG TABLET PO SCH (09:48)
[2018-04-14] MEDS: METOPROLOL TARTRATE 12.5 MG TAB PO SCH (09:48)
[2018-04-14] MEDS: LISINOPRIL 2.5 MG TAB PO SCH (09:48)
[2018-04-14] MEDS: FAMOTIDINE 20 MG/2 ML VIAL IV SCH (09:48)
[2018-04-14] MEDS: ACETAMINOPHEN TAB 325 MG TAB PO PRN (09:49)
[2018-04-14] MEDS: SPIRONOLACTONE 25 MG TAB PO SCH (09:49)
[2018-04-14] MEDS: PRASUGREL 10 MG TAB PO SCH (09:49)
[2018-04-14 11:19] LABS: Glucose,Whole Blood 108 mg/dL (75-99)
[2018-04-14 13:13] VITALS: BMI 22.4
[2018-04-14 14:54] VITALS: BP 101/64; PULSE 58; RESP 18; TEMP 98
--- NOTE | 2018-04-14 15:30 | DS ---
DISCHARGE SUMMARY DATE OF ADMISSION: 04/08/2018 DATE OF DISCHARGE: 04/14/2018 FINAL DIAGNOSES: 1. Severe food retention in the gastric portion with obstruction near the level of the diaphragm causing nausea and vomiting. 2. History of total esophagectomy with gastric pull-through for cancer of the esophagus. 3. Possible recurrence of intraluminal or extraluminal mass around the area of the diaphragm. 4. Acute ST-elevation myocardial infarction that occurred on March 27 with stent to the left anterior descending coronary artery. 5. Hyperlipidemia. 6. Essential hypertension. 7. Possible esophagitis. 8. Chronic insomnia. 9. Anxiety not otherwise specified. 10.Chronic back pain, probably arthritis. HOSPITAL COURSE: This very pleasant 72-year-old patient of Dr. Hoffman back in 2005 had esophageal cancer, followed with Dr. Talavera, went to [facility], had total esophagectomy with stomach pull-through. Then in March of this year he starting having more pain. Subsequently in March of this year he had an acute NV, had a stent to the LAD. Now patient comes back with nausea, vomiting, abdominal pain. CT scan found food stuck in the stomach pull-through up to the thyroid. Except for his medications, he has been n.p.o. We did contact [facility] and I spoke at the Tumor Board. The patient's got a call this morning; they do not want to accept him right now, and they will have to wait it out currently. I did talk to the patient and his at length and also the director social welfare Minesh. Patient will be discharged home and follow up with Dr. Cesario Talavera next week. Then we will decide from there. Of course, the problem being if we do an EGD, because of antiplatelet agents there could be a problem. I did speak to Dr. Day earlier in the hospitalization. We may have to hold off the Effient briefly to do that, but this will need to be coordinated as an outpatient. On examination, lungs reveal decreased breath sounds. ABDOMEN: Soft, nontender. The patient is up and about in the hallway. Blood pressure 108/66, pulse 57. CONSULTATIONS: 1. Dr. Guzman from Oncology. 2. Dr. Le from General Surgery. 3. Dr. Chung from Vascular Surgery. 4. Dr. Kathia Day from Cardiology. DISCHARGE MEDICATIONS: 1. Aspirin 81 mg a day. 2. Xanax 0.25 p.o. at bedtime. 3. Lipitor 80 mg at bedtime. 4. Zestril 2.5 p.o. daily. 5. Lopressor 25 p.o. b.i.d. 6. Nitrostat 0.4 sublingually q.5 p.r.n. 7. Effient 10 mg p.o. daily. 8. Zofran 4 mg q.8 p.r.n. 9. Protonix 40 mg a day. 10.Align 4 mg at bedtime. 11.Aldactone 12.5 p.o. daily. 12.Duragesic patch 12 q.72 hours. 13.TPN and lipids as directed. The patient will follow up with Dr. Talavera next week. Follow up with Dr. Dalton [email or web address]. [facility] is following. Follow up with Cardiology as scheduled. Discussion and discharge planning more than 35 minutes. MMODL / IJN: [id number] /
--- NOTE | 2018-04-14 19:09 | P.PN ---
Subjective Progress Note Date: 04/14/18 Principal diagnosis: Dysphagia TPN is infusing, and patients sister at bedside during evaluation. Awaiting to hear about transfer, no acute events overnight or new complaints Discussion with family today as they expressfrustration with not being able to undergo further work-up at [facility] because of his need for anti- platelets in the recent event of NE. At this time he will continue on TPN at home and will discuss options as an outpatient with rosa and [facility] Objective - Vital Signs Vital signs: Vital Signs Temp 98.0 F 04/14/18 14:17 Pulse 58 L 04/14/18 14:17 Resp 18 04/14/18 14:17 BP 101/64 04/14/18 14:17 Pulse Ox 100 04/14/18 14:17 Intake & Output 04/13/18 04/14/18 04/14/18 18:59 06:59 18:59 Intake Total 1210 1006 664 Balance 1210 1006 664 Weight 71 kg 71 kg Intake: IV 166 664 Mvi, Adult No.4 with Vit 166 664 K 10 ml Trace (Conc-1Ml/ Dose) 1 ml In Amino Acid 5%-D15w+Lytes*E* 1,000 ml @ 83 mls/hr IV .BY DURATION CECILIA Rx#: [id number] Intake, IV Titration 1210 250 Amount Amino Acid 5%-D15w+Lytes* 1000 E* 1,000 ml @ 83 mls/hr IV .BY DURATION CECILIA Rx#: [id number] Fat Emulsion 20% 250 ml @ 210 250 20.833 mls/hr IV Q24H CECILIA Rx#:[id number] Oral 590 Other: Voiding Method Toilet Toilet Toilet Urinal Urinal Urinal # Voids 2 - Constitutional General appearance: Present: cooperative, no acute distress - EENT Eyes: Present: EOMI, PERRLA, dentition normal ENT: Present: hard of hearing, NA/AT, normal oropharynx - Neck Details: Supple, trachea midline Neck: Present: normal ROM - Respiratory Respiratory: bilateral: CTA (no increased effort) - Cardiovascular Rhythm: regular Heart sounds: normal: S1, S2 - Gastrointestinal General gastrointestinal: Present: normal bowel sounds, soft, tenderness - Neurologic Neurologic Comment(s): no focal defects Neurologic: Present: CNII-XII intact - Musculoskeletal Musculoskeletal: Present: gait normal, generalized weakness, strength equal bilaterally - Psychiatric Psychiatric: Present: A&O x's 3, appropriate affect, intact judgment & insight - Labs CBC & Chem 7: 04/11/18 12:41 04/14/18 07:06 Labs: Abnormal Lab Results - Last 24 Hours (Table) 04/14/18 04/14/18 04/14/18 Range/Units 06:20 07:06 11:17 Chloride 110 H (98-107) mmol/L BUN 23 H (9-20) mg/dL Glucose 117 H (74-99) mg/dL POC Glucose (mg/dL) 120 H 108 H (75-99) mg/dL Assessment and Plan Plan: Assessment and Recommendations: 1. Persistent Nausea and Vomiting - Improved 2. Acute on Chronic Dysphagia - NPO CT C/A/P revealed large volume of food and liquid within the gastric pull- through extending down to the diaphragm. There is some haziness there which I suspect represents recurrence although no definite masses identified. - Patient will be transferred to [facility] so further evaluation can be made 3. Recent ST-Elevation NE Status Post Stent on 03/25/18 4. Adenocarcinoma of the Esophagus: - ?Recurrence, would need EGD to confirm this, may need dilation secondary to scar tissue growth, recommend follow-up at [facility] for this - Received Scott-Adjuvant Chemotherapy and Radiation from June to August of 2015, Resection of Esophageal mass in October of 2015 at [facility] and has continued with follow-up at [facility] since this time. - Obtain recent diagnostic imaging from [facility] and [facility] 5. Thrombocytopenia - Appears chronic since 2014 - Last 106 on 04/08 - recheck 04/11/18 = 84 - Will need to monitor closely and keep above 50K 6. Unintended weight loss secondary to number 1 and 2: - Unable to be off Aspirin with recent stent, - Picc line and TPN - Plan Today - until able to undergo more invasive procedures safely with anticoagulation requirements - Re-review of CT scan was concerning for recurrence with the amount of contents unable to pass. Discussed with Dr. Guzman and Dr. Nunez and Patient. It is felt best for patient to be transferred to [facility] for EGD, will need transfusion of platlets during this procedure with recent NE and need for Anti-platlet medications with recent Stent. In the interim he will require some form of nutrition, therefore a picc line and TPN will be the short term resolution. - I have discussed the re-read of CT scan with patient and and questions answered. DISPO PLAN: - I have discussed case with Dr. Nunez and Dr. Le today. We will discharge patient home as [facility] unable to accept transfer at this time. He will continue on TPN as outpatient through [facility]. Mr. Marlow will be following up in our office to manage his TPN and Lipids until further intervention can be done related to his obstruction. We will explore options for outpatient assessment at [facility] and/or potential [facility] for J tube and EGD with potential biopsy. If tissue is obtained safely then treatment could be initiated with radiation or chemotherapy while receiving blood thinners. Thank you for allowing us to participate in the care of this patient, we will follow along with you.
== END 2018-04-14 16:15 | disposition home health service (06) | DRG 376 ==
LOC: EC 09:09 → 5ONC 11:16
PROVIDERS: ADMIT Hospitalist; ATTEND Hospitalist
PROC: 02HV33Z Insertion of Infusion Device into Superior Vena Cava, Percutaneous Approach (ICD-10-PCS; principal; 2018-04-10 14:21)
PROC: 3E0436Z Introduction of Nutritional Substance into Central Vein, Percutaneous Approach (ICD-10-PCS; 2018-04-10 14:21)
DX: C15.9 Malignant neoplasm of esophagus, unspecified (principal); E78.5 Hyperlipidemia, unspecified; E86.0 Dehydration; F41.9 Anxiety disorder, unspecified; F51.04 Psychophysiologic insomnia; G89.29 Other chronic pain; I10 Essential (primary) hypertension; I71.4 Abdominal aortic aneurysm, without rupture; K21.9 Gastro-esophageal reflux disease without esophagitis; M19.90 Unspecified osteoarthritis, unspecified site; R13.10 Dysphagia, unspecified; M54.9 Dorsalgia, unspecified; R11.2 Nausea with vomiting, unspecified; R63.4 Abnormal weight loss; I25.10 Atherosclerotic heart disease of native coronary artery without angina pectoris; H91.90 Unspecified hearing loss, unspecified ear; K31.89 Other diseases of stomach and duodenum; D69.6 Thrombocytopenia, unspecified; K20.9 Esophagitis, unspecified; Z79.82 Long term (current) use of aspirin; Z79.899 Other long term (current) drug therapy; Z95.5 Presence of coronary angioplasty implant and graft; Z92.21 Personal history of antineoplastic chemotherapy; Z87.891 Personal history of nicotine dependence; Z90.49 Acquired absence of other specified parts of digestive tract; Z92.3 Personal history of irradiation; I25.2 Old myocardial infarction; Z80.0 Family history of malignant neoplasm of digestive organs
CPT/HCPCS: 36415; 36569; 71250; 74176; 76937; 77001; 80048; 80053; 81003; 82150; 82330; 82550; 82553; 83036; 83690; 83735; 84100; 84478; 84484; 85025; 85610; 85730; 93005; 96361; 96374; 96375; 99285

== ENCOUNTER 2018-05-05 13:35 | Emergency (ER) | payer MEDICARE ==
--- NOTE | 2018-05-05 15:19 | ED ---
Abdominal Pain HPI - General Chief Complaint: Abdominal Pain Stated Complaint: Back Pain/Cancer Pt Time Seen by Provider: 05/05/18 15:01 Source: patient Mode of arrival: ambulatory Limitations: no limitations - History of Present Illness Initial Comments: This is a 72-year-old male with a history of esophageal cancers post resection and recent J-tube placement who presents emergency department for inability to have a bowel movement. He had an outpatient x-ray performed today that showed dilated I'll then quite a bit of stool burden so he was directed to the emergency department. He states that he has passed some gas however has not had a bowel movement in over a month. He hasn't tried enemas and other over-the -counter remedies however nothing has improved his symptoms. He does feel like he needs to go now and is having some abdominal discomfort. Denies any fevers or chills. No bleeding. No other complaints. - Related Data Home Medications Medication Instructions Recorded Confirmed Aspirin EC [Ecotrin Low Dose] 81 mg PO DAILY 01/10/15 05/05/18 Spironolactone [Aldactone] 25 mg PO DAILY 04/06/18 05/05/18 Cholecalciferol [Vitamin D3] 2,000 unit PO DAILY 05/05/18 05/05/18 Dexamethasone 4 mg PO Q12H 05/05/18 05/05/18 Glycopyrrolate [Glycopyrrolate 2 mg PO TID 05/05/18 05/05/18 Forte] Metoprolol Succinate [Toprol XL] 25 mg PO DAILY 05/05/18 05/05/18 Ondansetron Odt [Zofran Odt] 8 mg PO Q8HR PRN 05/05/18 05/05/18 Pantoprazole Sodium [Protonix] 40 mg PO HS 05/05/18 05/05/18 Polyethylene Glycol 3350 [Miralax] 17 gm PO DAILY PRN 05/05/18 05/05/18 Scopolamine 1.5MG/72Hr Patch 1 patch TRANSDERM Q72H 05/05/18 05/05/18 [Transderm-Scop 1.5MG/72Hr Patch] Sennosides [Senokot] 17.2 mg PO BID 05/05/18 05/05/18 fentaNYL 25MCG/HR PATCH [Duragesic 25 mcg TRANSDERM Q72H 05/05/18 05/05/18 25MCG/HR] oxyCODONE HCL 5 - 10 mg PO Q4H PRN 05/05/18 05/05/18 traZODone HCL 50 mg PO HS 05/05/18 05/05/18 Previous Rx's Medication Instructions Recorded Atorvastatin [Lipitor] 80 mg PO HS #90 tab 03/28/18 Lisinopril [Zestril] 2.5 mg PO DAILY #90 tab 03/28/18 Nitroglycerin Sl Tabs [Nitrostat] 0.4 mg SUBLINGUAL Q5M PRN #25 tab 03/28/18 Prasugrel [Effient] 10 mg PO DAILY #90 tab 03/28/18 Bisacodyl [Dulcolax] 10 mg RECTAL ONCE #1 supp 05/05/18 Lactulose 20 gm PO ONCE #30 ml 05/05/18 Magnesium Citrate 296 ml PO ONCE #296 ml 05/05/18 Allergies Allergy/AdvReac Type Severity Reaction Status Date / Time No Known Allergies Allergy Verified 05/05/18 15:25 Review of Systems ROS Statement: Those systems with pertinent positive or pertinent negative responses have been documented in the HPI. ROS Other: All systems not noted in ROS Statement are negative. Past Medical History Past Medical History: Cancer, Hyperlipidemia, Hypertension, Myocardial Infarction (RI) Additional Past Medical History / Comment(s): HX OF FX RT HIP-NO SURGERY; RINGING IN EARS. DIFF SWALLOWING FOOD, espoghus cancer Last Myocardial Infarction Date:: 03/25/2018 History of Any Multi-Drug Resistant Organisms: None Reported Past Surgical History: Heart Catheterization With Stent Additional Past Surgical History / Comment(s): COLONOSCOPY, LAST 01/13/15. esophagectomy, radiation and chemotherapy 2 years ago. Past Anesthesia/Blood Transfusion Reactions: No Reported Reaction Date of Last Stent Placement:: 2000 Past Psychological History: No Psychological Hx Reported Smoking Status: Former smoker Past Alcohol Use History: Occasional Past Drug Use History: None Reported - Past Family History Mother Family Medical History: Cancer Additional Family Medical History / Comment(s): COLON General Exam - General Exam Comments Initial Comments: Constitutional: Awake alert Appears comfortable Head: Normocephalic atraumatic Eyes: no conjunctival injection No scleral icterus EOMI Neck: No JVD Supple Heart: Regular rate rhythm normal S1-S2 no murmurs Lungs: Clear to auscultation bilaterally No wheezing No rales Abdomen: Soft nondistended tenderness diffusely throughout the abdomen, J-tube is in place Extremities: Non edematous DP pulses intact Radial pulses intact Neuro: A&Ox3 No focal neurologic deficits Psych: Appropriate mood and affect Limitations: no limitations Course Vital Signs 05/05/18 05/05/18 13:57 17:53 Temperature 98.5 F Pulse Rate 79 75 Respiratory 18 17 Rate Blood Pressure 115/71 121/54 O2 Sat by Pulse 96 95 Oximetry Medical Decision Making - Medical Decision Making This is a 72-year-old male who presents emergency department for constipation. The patient did have an x-ray that showed quite a bit of stool burden so computed tomography scan was performed to make sure there is no obstruction. CT did not reveal any obstruction. It revealed stable findings. The patient was noted to have a mild leukocytosis however no other evidence for infection. The patient was given a molasses enema with a bowel movement. He stated that he felt improved however still felt somewhat crampy. The patient was requesting to go home. He will be sent home on magnesium citrate, lactulose, and Dulcolax suppository to be used one time. Told to follow-up with his primary doctor. If any worsening or changing symptoms occur he needs return emergency Department. All questions answered. - Lab Data Result diagrams: 05/05/18 15:42 05/05/18 15:42 Lab Results 05/05/18 05/05/18 Range/Units 15:42 15:42 WBC 16.2 H (3.8-10.6) k/uL RBC 3.88 L (4.30-5.90) m/uL Hgb 12.5 L (13.0-17.5) gm/dL Hct 36.7 L (39.0-53.0) % MCV 94.6 (80.0-100.0) fL MCH 32.2 (25.0-35.0) pg MCHC 34.0 (31.0-37.0) g/dL RDW 14.1 (11.5-15.5) % Plt Count 226 D (150-450) k/uL Neutrophils % 95 % Lymphocytes % 1 % Monocytes % 4 % Eosinophils % 0 % Basophils % 0 % Neutrophils # 15.3 H (1.3-7.7) k/uL Lymphocytes # 0.1 L (1.0-4.8) k/uL Monocytes # 0.6 (0-1.0) k/uL Eosinophils # 0.0 (0-0.7) k/uL Basophils # 0.0 (0-0.2) k/uL Sodium 135 L (137-145) mmol/L Potassium 5.4 H (3.5-5.1) mmol/L Chloride 97 L (98-107) mmol/L Carbon Dioxide 28 (22-30) mmol/L Anion Gap 10 mmol/L BUN 59 H (9-20) mg/dL Creatinine 1.20 (0.66-1.25) mg/dL Est GFR (CKD-EPI)AfAm 71 (>60 ml/min/1.73 sqM) Est GFR (CKD-EPI)NonAf 61 (>60 ml/min/1.73 sqM) Glucose 140 H (74-99) mg/dL Calcium 9.6 (8.4-10.2) mg/dL Total Bilirubin 0.8 (0.2-1.3) mg/dL AST 64 H (17-59) U/L ALT 281 H (21-72) U/L Alkaline Phosphatase 177 H (38-126) U/L Total Protein 6.8 (6.3-8.2) g/dL Albumin 3.7 (3.5-5.0) g/dL Disposition Clinical Impression: Constipation Disposition: HOME SELF-CARE Condition: Stable Instructions: Constipation (ED) Prescriptions: Bisacodyl [Dulcolax] 10 mg RECTAL ONCE #1 supp Lactulose 20 gm PO ONCE #30 ml Magnesium Citrate 296 ml PO ONCE #296 ml Is patient prescribed a controlled substance at d/c from ED?: No Referrals: Kike Hoffman MD [STAFF PHYSICIAN] - 1-2 days
[2018-05-05 15:58] LABS: Basophils % (A) 0 %; Eosinophils % (A) 0 %; HCT 36.7 % (39.0-53.0); HGB 12.5 gm/dL (13.0-17.5); Lymphocytes # (A) 0.1 k/uL (1.0-4.8); Lymphocytes % (A) 1 %; MCH 32.2 pg (25.0-35.0); MCV 94.6 fL (80.0-100.0); Mean Platelet Volume 8.2; Monocytes # (A) 0.6 k/uL (0-1.0); Monocytes % (A) 4 %; Neutrophils # (A) 15.3 k/uL (1.3-7.7); Neutrophils % (A) 95 %; Platelet Count 226 k/uL (150-450); RBC 3.88 m/uL (4.30-5.90); RDW 14.1 % (11.5-15.5); WBC 16.2 k/uL (3.8-10.6)
[2018-05-05 16:23] LABS: Albumin 3.7 g/dL (3.5-5.0); Calcium 9.6 mg/dL (8.4-10.2); Potassium 5.4 mmol/L (3.5-5.1); Total Bilirubin 0.8 mg/dL (0.2-1.3); Total Protein 6.8 g/dL (6.3-8.2)
--- NOTE | 2018-05-05 17:16 | CT ---
EXAMINATION TYPE: CT abdomen pelvis w con DATE OF EXAM: 05/05/2018 COMPARISON: 04/09/2018 HISTORY: CONSTIPATION CT DLP: 879 mGycm Automated exposure control for dose reduction was used. TECHNIQUE: Helical acquisition of images was performed from the lung bases through the pelvis. CONTRAST: Performed without Oral Contrast and with IV Contrast, patient injected with 100 mL of Isovue 300. FINDINGS: There is left pleural effusion. There is some patchy consolidation in the posterior left lower lobe. There is gastric apparent pull-through procedure with hiatal hernia. Heart size is normal. There is n o pleural effusion on the right side. There are scattered small hepatic cysts that measure less than 1 cm. Gallbladder appears normal. Bile ducts are not dilated. Spleen appears normal. There is no evidence of a pancreatic mass. There is no adrenal mass. Kidneys show satisfactory contrast opacification. There are multiple renal parapelvic cysts. There is some left-sided hydronephrosis that appears new compared to old exam. Bladder distend s smoothly. There is no pelvic mass. There is no significant retained fecal material in the bowel. Th ere is oral contrast extending to the descending colon. Small bowel pattern appears normal. There is no evidence of a bowel obstruction. There is no ascites. Abdominal aorta is atheromatous. There is an eurysm of the lower abdominal aorta that measures up to 4.2 cm. There is thrombus that measures up to 1.7 cm. There is mild aneurysm of the common iliac arteries that measure up to 1.8 cm. I see no pelv ic lymphadenopathy. There are enlarged retrocrural lymph nodes at the diaphragm. This measures up to 1.5 cm in thickness. Jejunostomy tube noted. There is no sign of oral contrast extravasation. There i s no free air. I see no bony destructive process. IMPRESSION: THERE IS A NEW JEJUNOSTOMY TUBE COMPARED TO LAST EXAM. GASTRIC PULL-THROUGH PROCEDURE. RETROCRURAL AD ENOPATHY UNCHANGED COMPARED TO LAST EXAM. NO EVIDENCE OF A BOWEL OBSTRUCTION. THERE IS NEW LEFT LOWER LOBE AIRSPACE CONSOLIDATION. THERE IS NEW LEFT PLEURAL EFFUSION. ABDOMINAL AORTIC ANEURYSM WITHOUT M UCH CHANGE IN SIZE. There is new left side hydronephrosis and proximal hydroureter compared to old exam. Obstructing calc ulus is not identified. The etiology is unclear.
[2018-05-05 17:54] VITALS: RESP 17
[2018-05-05 19:13] VITALS: BP 112/71; PULSE 83; TEMP 98.7
== END 2018-05-05 19:31 | disposition home or self-care (01) ==
LOC: EC 13:35
DX: K59.00 Constipation, unspecified (principal); D72.829 Elevated white blood cell count, unspecified; I25.2 Old myocardial infarction; I10 Essential (primary) hypertension; Z79.82 Long term (current) use of aspirin; Z79.899 Other long term (current) drug therapy; Z85.01 Personal history of malignant neoplasm of esophagus; Z87.891 Personal history of nicotine dependence; Z98.890 Other specified postprocedural states; Z95.5 Presence of coronary angioplasty implant and graft
CPT/HCPCS: 36415; 80053; 85025; 74177; 99284; Q9967

== ENCOUNTER → 2018-05-05 | Outpatient (CLI) | payer MEDICARE ==
--- NOTE | 2018-05-05 12:56 | XR ---
EXAMINATION TYPE: XR abdomen complete w decub DATE OF EXAM: 05/05/2018 COMPARISON: 04/09/2018 HISTORY: Pain TECHNIQUE: Supine, upright, and left side down lateral decubitus views of the abdomen are obtained. FINDINGS: Retained contrast through the bowel. There is surgical drain overlying the left abdomen. Co ntrast is seen in the colon. Decubitus views limited. Arthropathy of the hips noted. Vascular calcifications noted. Left basilar consolidation and small ef fusion noted. Degenerative change of the spine. IMPRESSION: Marked distention of the bowel with contrast seen involving the colon. Distal obstruction not exclude d correlate clinically. Left basilar consolidation and small effusion noted.
== END | disposition home or self-care (01) ==
LOC: RADXRMAIN 12:27
PROVIDERS: ATTEND Nurse Practitioner Family
DX: K63.89 Other specified diseases of intestine (principal)
CPT/HCPCS: 74021